=== PATIENT | female | born 1940 | race Caucasian/White ===

== ENCOUNTER 2019-06-04 19:20 | Inpatient (IN) ==
[2019-06-04] MEDS ORDERED: cloNIDine HCl 0.1 MG TAB PO ONE (20:24)
[2019-06-04 20:44] LABS: Basophils # (auto) 0.04 K/uL (0-0.2); Basophils % (auto) 0.7 %; Eosinophils # (auto) 0.07 K/uL (0-0.5); Eosinophils % (auto) 1.2 %; Hematocrit (blood only) 35.6 % (37-47); Immature Granulocytes # (auto) 0.03 K/uL (0.00-0.02); Immature Granulocytes % (auto) 0.5 %; Lymphocytes # (auto) 0.65 K/uL (1.2-3.4); Lymphocytes % (auto) 10.7 %; Mean Corpuscular Hgb Conc 33.7 g/dL (32-36); Mean Platelet Volume 9.3 fL (7.4-10.4); Monocytes # (auto) 0.69 K/uL (0.11-0.59); Monocytes % (auto) 11.3 %; Neutrophils % (auto) 75.6 %; Platelet Count 166 K/uL (130-400); RDW Coefficient of Variation 16.8 % (11.5-14.5); RDW Standard Deviation 59.5 fL (36.4-46.3); Red Blood Count 3.67 M/uL (4.2-5.4); White Blood Count 6.08 K/uL (4.8-10.8)
--- NOTE | 2019-06-04 20:44 | Emergency Department Note ---
ED Visit Note I contributed to the care of this patient under the supervision of . Resident Activity Tracking Resident Involvement: Resident Care Provided Care Provided: Adult ED
[2019-06-04] MEDS ORDERED: OXYCODONE/ACETAMINOPHEN 5mg/325mg TAB PO STA (20:50)
[2019-06-04 21:00] LABS: BUN Creatinine Ratio 17.6 (10-20); Blood Urea Nitrogen 37 mg/dl (7-18); Calcium 8.5 mg/dl (8.5-10.1); Carbon Dioxide 32 mmol/L (21-32); Chloride 96 mmol/L (98-107); Est GFR (African American) 25.4; Est GFR (Non-African American) 21.9; Glucose 86 mg/dl (70-99); Sodium 134 mmol/L (136-145)
--- NOTE | 2019-06-04 21:09 | XRay Report ---
XR chest 1V portable HISTORY: Hypertensive urgency COMPARISON: Chest 02/15/2019. FINDINGS: The lungs are hyperexpanded with apical predominant emphysematous changes. No focal lung co nsolidations to suggest pneumonia. No evidence for pulmonary edema. Calcified lymph nodes are again n oted. The heart is normal in size. Mildly tortuous thoracic aorta. Right apical pleural thickening/sc arring remains unchanged. No pleural effusions. No pneumothorax. IMPRESSION: No significant change compared to the prior study. No acute process. Emphysema is again noted. Electronically signed by: Ozzie Lo M.D. 06/04/2019 9:08 PM
[2019-06-04 21:17] LABS: Troponin I 0.076 ng/ml (0-0.045)
--- NOTE | 2019-06-04 21:19 | CT Scan Report ---
HEAD CT NONCONTRAST CT DOSE: 743.26 mGy.cm HISTORY: Systolic BP>200, h/a, new cognitive deficits TECHNIQUE: Multiaxial CT images of the head were performed without the use of intravenous contrast. A utomated exposure control was utilized for this study. A dose lowering technique was utilized adheri ng to the principles of ALARA. Comparison: Head CT 03/27/2019. Findings: The paranasal sinuses and mastoid air cells are clear. The calvarium and skull base are int act. There is no mass, hematoma, midline shift, acute infarct. White matter hypodensity is nonspecifi c but suggestive of microvascular ischemic change. The ventricles and sulci demonstrate mild age-rela edmundo involutional changes. Impression: No acute intracranial abnormality. Atrophy and microvascular ischemic changes. Electronically signed by: Ozzie Lo M.D. 06/04/2019 9:18 PM
[2019-06-04 21:52] LABS: Appearance Urine Clear (Clear); Bacteria Urine Automated Negative (Negative); Bilirubin Urine Negative (Negative); Blood Urine Trace (Negative); Color Urine Yellow; Glucose Urine UA Trace (Negative); Ketones Urine Negative (Negative); Leukocyte Esterase Urine Negative (Negative); Nitrite Urine Negative (Negative); RBC Urine Automated 0-4 /hpf (0-4); Specific Gravity Urine 1.014 (1.000-1.030); Urobilinogen Urine Negative (Negative); WBC Urine Automated 0 /hpf (0-5); pH Urine 7.5 (4.5-7.5)
[2019-06-04 21:55] LABS: Protein Urine 3+ (Negative)
--- NOTE | 2019-06-04 21:57 | Emergency Department Note ---
Entered by Mckenna Carrington acting as a scribe for Bronson Osorio DO History of Present Illness General Chief complaint: Hypertension Stated complaint: HIGH BLOOD PRESSURE Time Seen by Provider: 06/04/19 19:26 Source: patient History of Present Illness Provider complaint: Hypertensive urgency Onset (ago): day(s) Location: head (cognitive deficit and hallucinations ) Pain Consistency: + constant Maximum Pain Intensity: 5 Quality: + constant Associated symptoms: + headaches (intermittent ) and + other (Positive: hypertensive urgency, decreased cognitive ability, auditory hallucinations, visual hallucinations, forgetful, light headed, bloody bowel movement, abdominal pain. Negative: LOC, visual weakness, visual changes, vertigo.); no syncope The patient is an 78 year old female who presents to the ED with complaints of constant hypertensive urgency that started several days ago. The patient reports she has had decreased cognitive ability in the last 2 weeks with auditory and visual hallucinations. The daughter notes the patient has been more forgetful. The patient reports she heard a full orchestra performing but when she tried to pay attention, it was not there. She notes she has been in the hospital for hypertension urgency in the past 2 weeks. The patient reports her blood pressure has been fluctuating since Friday. She notes she feels off and has 5/10 inte rmittent headache. The patient states she is lightheaded. She reports she was seen on Friday morning because she had a large bloody bowel movement with both dark and light blood. The patient reports she was recommended to come to the ED because of the hypertension and the bloody bowel movement. She notes she had normal bowel movements today but still has abdominal pain. The patient states she had colonoscopy and endoscopy done in 2015 and both came back normal. She reports she has a CT scan with no contrast scheduled next week of both the head and abdomen. The patient states she has history of COPD, stenosis, dyslipidemia, tobacco abuse, hemorrhoids. The patient denies LOC, visual weakne ss, visual changes, vertigo, or syncope. Home Medications Home Medications Medication Instructions Recorded Confirmed Type Bevespi Aerosphere 2 puff INHALATION BID 03/10/19 06/04/19 History Spirulina 1 ea MISCELLANEOUS DAILY 03/10/19 06/04/19 History levothyroxine 88 mcg PO QAM 03/10/19 06/04/19 History ranitidine HCl [Zantac] 150 mg PO DAILY PRN 03/10/19 06/04/19 History alendronate 70 mg PO WK 03/27/19 06/04/19 History escitalopram oxalate [Lexapro] 5 mg PO QAM 03/27/19 06/04/19 History ipratropium-albuterol 3 ml INHALATION QID 03/27/19 06/04/19 History inhalational spacing device #1 ea 05/24/19 05/24/19 History cetirizine [Zyrtec] 10 mg PO DAILY PRN 06/04/19 06/04/19 History colestipol 5 g PO DAILY 06/04/19 06/04/19 History ergocalciferol (vitamin D2) 50,000 unit PO WK 06/04/19 06/04/19 History [Vitamin D2] hydralazine 10 mg PO QID 06/04/19 06/04/19 History nicotine (polacrilex) [Nicorette] 2 mg BUCCAL Q3H PRN 06/04/19 06/04/19 History potassium chloride 20 meq PO BID 06/04/19 06/04/19 History tramadol 50 mg PO TID PRN 06/04/19 06/04/19 History trazodone 50 mg PO HS 06/04/19 06/04/19 History Allergies Allergy/AdvReac Type Severity Reaction Status Date / Time morphine Allergy Severe Hypotension Verified 05/24/19 14:30 [id number]-[id number]-[id number] Reductase Allergy Severe Unknown Verified 05/24/19 14:30 Inhibitor Past Med/Surg History Medical History COPD (chronic obstructive pulmonary disease) (Chronic) Breast cancer Hypothyroidism Renal artery stenosis History of hysterectomy Pulmonary embolism Surgical History H/O mastectomy H/O abdominal aortic aneurysm repair History of right hip replacement Family History Father Myocardial infarction Social History Preferred Language: Bruneian Communication Ability: Effective Toilet And 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 and A total of 10 systems reviewed and were otherwise negative Physical Exam Vital Signs Vital Signs - 24 hr 06/04/19 19:21 06/04/19 20:21 06/04/19 20:28 Temperature 37.1 C Temperature Source Oral Sepsis Recent Fever Within 48 Hours No Sepsis Action Taken by Nursing No Action Required Pulse Rate 93 H 93 H 89 Pulse Rate [Apical] Pulse Rate from SpO2 Sensor 93 H Respiratory Rate 18 24 20 Respiratory Effort / Characteristics Non-Labored Spontaneous Respiratory Depth Normal Respiratory Pattern Regular Blood Pressure 147/92 H 199/132 H Blood Pressure [Left Arm] Blood Pressure Mean 110 154 Blood Pressure Mean [Left Arm] Blood Pressure Position Sitting Blood Pressure Position [Left Arm] Pulse Oximetry 98 100 100 Oxygen Delivery Method Nasal Cannula Nasal Cannula Nasal Cannula Oxygen Flow Rate 3 3 3 06/04/19 20:29 06/04/19 20:35 06/04/19 20:36 Temperature Temperature Source Sepsis Recent Fever Within 48 Hours Sepsis Action Taken by Nursing Pulse Rate 91 H 91 H Pulse Rate [Apical] 93 H Pulse Rate from SpO2 Sensor 92 H 91 H Respiratory Rate 26 H 22 21 Respiratory Effort / Characteristics Non-Labored Spontaneous Respiratory Depth Normal Respiratory Pattern Regular Blood Pressure 217/116 H Blood Pressure [Left Arm] 199/132 H Blood Pressure Mean 149 Blood Pressure Mean [Left Arm] 154 Blood Pressure Position Blood Pressure Position [Left Arm] Lying Pulse Oximetry 100 100 100 Oxygen Delivery Method Nasal Cannula Oxygen Flow Rate 3 3 3 06/04/19 21:00 06/04/19 21:30 06/04/19 21:35 Temperature Temperature Source Sepsis Recent Fever Within 48 Hours Sepsis Action Taken by Nursing Pulse Rate 95 H 90 86 Pulse Rate [Apical] Pulse Rate from SpO2 Sensor 90 86 Respiratory Rate 15 23 Respiratory Effort / Characteristics Respiratory Depth Respiratory Pattern Blood Pressure 198/126 H Blood Pressure [Left Arm] Blood Pressure Mean 150 Blood Pressure Mean [Left Arm] Blood Pressure Position Blood Pressure Position [Left Arm] Pulse Oximetry 98 99 Oxygen Delivery Method Nasal Cannula Nasal Cannula Oxygen Flow Rate 3 3 3 CONSTITUTIONAL/VITAL SIGNS: Reviewed / noted above. GENERAL: Non-toxic in appearance. INTEGUMENTARY: Warm, dry, and Circle. HEAD: Normocephalic. EYES: without scleral icterus or trauma. ENT/OROPHARYNX: clear and moist. LYMPHADENOPATHY/NECK: Is supple without lymphadenopathy or meningismus. RESPIRATORY: Lungs clear and equal. CARDIOVASCULAR: Regular rate and rhythm. GI/ABDOMEN: Soft and nontender. No organomegaly or pulsatile mass. No rebound or guarding. Normal bowel sounds. EXTREMITIES: Warm and well perfused. BACK: No CVA tenderness. NEUROLOGICAL: Intact without focal deficits. PSYCHIATRIC: normal affect. MUSCULOSKELETAL: Normally developed with good muscle tone. Course 1930: The resident evaluated the patient. 2034: The patient was evaluated in room C5. A complete history and physical exam was performed. 2119: The resident discussed the patient's case with Dr. Bourne, [facility] [place] Hospitalist. He will evaluate the patient for further management. Administered Medications Discontinued Medications Clonidine HCl (Catapres) 0.1 mg PO NOW ONE Stop: 06/04/19 20:25 Last Admin: 06/04/19 20:34 Dose: 0.1 mg Documented by: [id number] Oxycodone/Acetaminophen (Percocet 5mg/325mg) 1 tab PO NOW STA Stop: 06/04/19 20:51 Last Admin: 06/04/19 21:01 Dose: 1 tab Documented by: [id number] Medical Decision Making Differential Diagnosis Differential Diagnosis: Differential includes acute coronary syndrome, myocardial infarction, CVA, TIA, anemia, infection, pneumonia, UTI, pyelonephritis, poor nutrition, dehydration, electrolyte disturbance,hypoglycemia. Medical Records Attestation: I reviewed the patient's medical records. Home Medications Current Medication List: was personally reviewed by me Laboratory Data Attestation: I reviewed the patient's lab results. Result diagrams: 06/04/19 20:21 06/04/19 20:21 Lab Results 06/04/19 06/04/19 06/04/19 Range/Units 20:21 20:21 21:06 WBC 6.08 (4.8-10.8) K/uL RBC 3.67 L (4.2-5.4) M/uL Hgb 12.0 (12.0-16.0) g/dL Hct 35.6 L (37-47) % MCV 97.0 (80-100) fL MCH 32.7 (25-34) pg MCHC 33.7 (32-36) g/dL RDW Std Deviation 59.5 H (36.4-46.3) fL RDW Coeff of Umberto 16.8 H (11.5-14.5) % Plt Count 166 (130-400) K/uL MPV 9.3 (7.4-10.4) fL Immature Gran % (Auto) 0.5 % Neut % (Auto) 75.6 % Lymph % (Auto) 10.7 % Mcminn % (Auto) 11.3 % Eos % (Auto) 1.2 % Baso % (Auto) 0.7 % Immature Gran # (Auto) 0.03 H (0.00-0.02) K/uL Neut # (Auto) 4.60 (1.4-6.5) K/uL Lymph # (Auto) 0.65 L (1.2-3.4) K/uL Mcminn # (Auto) 0.69 H (0.11-0.59) K/uL Eos # (Auto) 0.07 (0-0.5) K/uL Baso # (Auto) 0.04 (0-0.2) K/uL Sodium 134 L (136-145) mmol/L Potassium 4.0 (3.5-5.1) mmol/L Chloride 96 L (98-107) mmol/L Carbon Dioxide 32 (21-32) mmol/L Anion Gap 5.0 (3-11) BUN 37 H (7-18) mg/dl Creatinine 2.08 H (0.6-1.2) mg/dl Est Cr Clr Drug Dosing Not Reportable Est GFR ( Amer) 25.4 Est GFR (Non-Af Amer) 21.9 BUN/Creatinine Ratio 17.6 (10-20) Glucose 86 (70-99) mg/dl Calcium 8.5 (8.5-10.1) mg/dl Ammonia 11.6 (11-32) umol/L Troponin I 0.076 H* (0-0.045) ng/ml Imaging Data Radiologist's Impression: Radiology results as stated below per my review and the radiologist's interpretation: XR chest 1V portable HISTORY: Hypertensive urgency COMPARISON: Chest 02/15/2019. FINDINGS: The lungs are hyperexpanded with apical predominant emphysematous changes. No focal lung consolidations to suggest pneumonia. No evidence for pulmonary edema. Calcified lymph nodes are again noted. The heart is normal in size. Mildly tortuous thoracic aorta. Right apical pleural thickening/scarring remains unchanged. No pleural effusions. No pneumothorax. IMPRESSION: No significant change compared to the prior study. No acute process. Emphysema is again noted. Electronically signed by: Ozzie Lo M.D. 06/04/2019 9:[address] CT DOSE: 743.26 mGy.cm HISTORY: Systolic BP>200, h/a, new cognitive deficits TECHNIQUE: Multiaxial CT images of the head were performed without the use of intravenous contrast. Automated exposure control was utilized for this study. A dose lowering technique was utilized adhering to the principles of ALARA. Comparison: Head CT 03/27/2019. Findings: The paranasal sinuses and mastoid air cells are clear. The calvarium and skull base are intact. There is no mass, hematoma, midline shift, acute infarct. White matter hypodensity is nonspecific but suggestive of microvascular ischemic change. The ventricles and sulci demonstrate mild age-related involutional changes. Impression: No acute intracranial abnormality. Atrophy and microvascular ischemic changes. Electronically signed by: Ozzie Lo M.D. 06/04/2019 9:18 PM ECG Data Attestation: I personally reviewed and interpreted this ECG as follows: Indication: other (hypertension ) Rate (beats per minute): 94 Rhythm: normal sinus Findings: no ST elevation and no ectopy Blood Pressure Blood Pressure Findings: Elevated blood pressure Blood Pressure Disposition: further management by hospitalist MONIQUE Vieyra The patient presents to the emergency department with her daughter. The patient has been having some issues recently over the past couple of weeks with hypertension. Also last week she had some visual and auditory hallucinations. She also reports some forgetfulness recently. She left the stove on after making some hard boiled eggs. The patient also complains of a headache. She was seen by her PCP several times for hypertension. The patient has a CT scan of the abdomen and pelvis without contrast and a CT scan of the brain without contrast ordered for next week. On Friday, the patient had a bloody bowel movement. She was seen by her PCP for this as well. Today she had a bowel movement without any blood. The patient otherwise denies any chest pains or shortness of breath. Denies any abdominal pains currently. She denies any urinary symptoms. Other details are noted above. Her physical exam was un remarkable today. She is speaking clearly and remembers details about the recent events. The patients CBC is normal. Chemistry panel was unremarkable. Kidney function tests are elevated. Troponin was elevated. EKG showed a sinus rhythm without ischemic changes. The patient was given clonidine p.o. here. She was also given a Percocet for headache. Because of her elevated troponin and significant hypertension, she will be seen by the hospitalist for further inpatient evaluation and care. Impression & Plan Hypertensive urgency, Stage 3 chronic kidney disease, Elevated troponin The scribe's documentation has been prepared under my direction and personally reviewed by me in its entirety. I confirm that the note above accurately reflects all work, treatment, procedures, and medical decision making performed by me.
[2019-06-04 21:59] LABS: Partial Thromboplastin Ratio 0.9; Partial Thromboplastin Time 23.7 Seconds (21.0-31.0); Prothrombin Time 10.1 Seconds (9.0-12.0)
[2019-06-04] MEDS ORDERED: HydrALAZINE HCL 20 MG/ML VIAL IV ONE ×3 (22:07→23:37)
--- NOTE | 2019-06-04 22:29 | History & Physical Report ---
Date of Service June 04, 2019 Assessment & Plan (1) Hypertensive urgency: 78 y/o F Hx CKD IV, renal artery stenosis, hypothyroid, diastolic CHF, COPD, HTN, HLD. The pt presents with an elevated blood pressure which had failed to respond to outpt treatment. She describes a headache as her only symptom. She had received PO Clonidine and takes TID Hydralazine. Despite this, her SBP is ~ 200 at the time of admission. Labs are notable for a marginally elevated troponin and otherwise approximate her baseline. The pt reports that 3 days ago she had a profuse rectal bleed owing to some ruptured scar tissue. This resolved without specific treatment. She also reports considerable weight loss over the past few months and was due for a CT of the chest/abdomen pelvis to assess for occult CA. The pt's daughter who is present at bedside, opines that she has exhibited a degree of cognitive decline over the same time period. 1) HTN urgency - will start with NTG and additional Hydralazine. If this is not effective, will proceed to a Nicardipine drip. She will be monitored on te lemetry. 2) Elevated trop - no evidence of ACS - EKG and presentation do not support ischemia - trop elevation is likely result of HTN and renal function. Will trend additional. No additional workup if stable. 3) Regarding her weight loss and engorged veins, she had been pending a workup for occult CA. We will send her for a CT chest/abdomen/pelvis as a chest mass could affect management. 4) CKD IV - creat has improved from baseline 5) CHF - euvolemic on admission 6) COPD - co evidence of exacerbation - cont inhalers and 02 protocol 7) Hypothyroidism - cont Synthroid We are holding off on heparin due to recent profuse rectal bleed - SCDs Full code - total time for this admit including review of labs, meds, imaging, records - discussion with pt, daughter and ER attending - 40 min Present on Admission?: Yes History of Present Illness Chief Complaint: HTN urgency - refferred by PCP Primary Care Provider: Bethany Brambila MD 78 y/o F Hx CKD IV, renal artery stenosis, hypothyroid, diastolic CHF, COPD, HTN, HLD. The pt presents with an elevated blood pressure which had failed to respond to outpt treatment. She describes a headache as her only symptom. She had received PO Clonidine and takes TID Hydralazine. Despite this, her SBP is ~ 200 at the time of admission. Labs are notable for a marginally elevated troponin and otherwise approximate her baseline. The pt reports that 3 days ago she had a profuse rectal bleed owing to some ruptured scar tissue. This resolved without specific treatment. She also reports considerable weight loss over the past few months and was due for a CT of the chest/abdomen pelvis to assess for occult CA. The pt's daughter who is present at bedside, opines that she has exhibited a degree of cognitive decline over the same time period. PMH: 1) CKD IV 2) Renal artery stenosis 3) HTN 4) HLD - cholesterol profile is unusual - total 385, LDL 236, HDL of 126 5) COPD - home 02 6) History of PE 7) GERD 8) AAA - repaired 9) Breast CA 10) Diastolic CHF and pulmonary HTN on echo 2018 11) LE edema - states this occurred with Amlodipine 12) Depression Surgical: 1) AAA repair 2) Mastectomy 3) LARISA Social: 58 PYH - quit smoking 11/2018. Does not drink alcohol. Family: Father due to an [place] Allergies Allergy/AdvReac Type Severity Reaction Status Date / Time morphine Allergy Severe Hypotension Verified 06/04/19 22:01 [id number]-[id number] Reductase Allergy Severe Unknown Verified 06/04/19 22:01 Inhibitor Home Medications Home Medications Medication Instructions Recorded Confirmed Type Bevespi Aerosphere 2 puff INHALATION BID 03/10/19 06/04/19 History Spirulina 1 ea MISCELLANEOUS DAILY 03/10/19 06/04/19 History levothyroxine 88 mcg PO QAM 03/10/19 06/04/19 History ranitidine HCl [Zantac] 150 mg PO DAILY PRN 03/10/19 06/04/19 History alendronate 70 mg PO WK 03/27/19 06/04/19 History escitalopram oxalate [Lexapro] 5 mg PO QAM 03/27/19 06/04/19 History ipratropium-albuterol 3 ml INHALATION QID 03/27/19 06/04/19 History inhalational spacing device #1 ea 05/24/19 05/24/19 History cetirizine [Zyrtec] 10 mg PO DAILY PRN 06/04/19 06/04/19 History colestipol 5 g PO DAILY 06/04/19 06/04/19 History ergocalciferol (vitamin D2) 50,000 unit PO WK 06/04/19 06/04/19 History [Vitamin D2] hydralazine 10 mg PO QID 06/04/19 06/04/19 History nicotine (polacrilex) [Nicorette] 2 mg BUCCAL Q3H PRN 06/04/19 06/04/19 History potassium chloride 20 meq PO BID 06/04/19 06/04/19 History tramadol 50 mg PO TID PRN 06/04/19 06/04/19 History trazodone 50 mg PO HS 06/04/19 06/04/19 History Past Med/Surg History Medical History COPD (chronic obstructive pulmonary disease) (Chronic) Breast cancer Hypothyroidism Renal artery stenosis History of hysterectomy Pulmonary embolism Surgical History H/O mastectomy H/O abdominal aortic aneurysm repair History of right hip replacement Family History Father Myocardial infarction Social History Preferred Language: Iraqi Communication Ability: Effective Systems Spec Required: No Beliefs That Will Affect Care: None Current Living Situation: Family Feels Safe at Home: Yes Smoking Status: Former smoker Tobacco Type: cigarettes ; Cigarettes Per Day: 20 ; Second Hand Exposure: No ; Hx Alcohol Use: No Hx Substance Use: Yes substance use type: sedatives Review of Systems Review of Systems: Gen: Gradual weight loss and possible cognitive decline over past few months ENT: Denies congestion, throat pain, hearing loss Eyes: Denies acute visual changes CV: Denies CP, palpitations Pulmonary: Denies SOB, cough, wheezing GI: Denies N/V, diarrhea, constipation Neuro: Mild headache - Denies acute or unilateral weakness, acute gait impairment Musculoskeletal: Denies acute joint pain, inflammation Endocrine: Denies polydipsia, polyuria Skin: Denies acute rashes or ulcers Physical Exam Physical Exam: General: This is a pleasant and loquacious, thin, elderly F - AAO x 3, no distress ENT: No erythema or exudates, no thrush Eyes: TYRESE, EOMI Head and neck: Normocephalic, atraumatic. There is significant engorgement of he veins on her neck, chest and arms. Chest/heart: Nontender, S1,2, RRR, no murmurs, no gallops Lungs: CTAB, no wheezing or crackles Abdomen: Nontender, nondistended, BS+ Neuro: AAO x 3, speech is clear, no unilateral weakness or loss of sensation, coordination intact Musculoskeletal: No joint inflammation, muscle tenderness, FROM Skin: No acute rashes or ulcers Extremities: No clubbing, cyanosis, + edema - chronic Results & Data Vital Signs (Past 12 Hours) Vital Signs Temp Pulse Pulse Resp BP BP Pulse Ox 06/04/19 21:35 86 23 198/126 H 99 06/04/19 21:30 90 98 06/04/19 21:00 95 H 15 06/04/19 20:36 91 H 21 217/116 H 100 06/04/19 20:35 91 H 22 100 06/04/19 20:29 93 H 26 H 199/132 H 100 06/04/19 20:28 89 20 100 06/04/19 20:21 93 H 24 199/132 H 100 06/04/19 19:21 98.8 F 93 H 18 147/92 H 98 Diagnostic Findings EKG: NSR PG Care Time/CCT Total # of Minutes Spent Total Time Spent with Patient: Total time spent is greater than 50% in coordination of care (as documented) at patient's floor/unit and/or counseling patient:
[2019-06-04] MEDS: NITROGLYCERIN 2% OINTMENT 30GM TUBE EXT SCH (22:31)
--- NOTE | 2019-06-04 23:26 | CT Scan Report ---
CT chest wo con, CT abd pelvis wo con CT DOSE: 418.63 mGy.cm HISTORY: Weight loss. Vomiting. lung mass suspected TECHNIQUE: Multiaxial CT images of the chest, abdomen, and pelvis were performed without contrast. A dose lowering technique was utilized adhering to the principles of ALARA. COMPARISON: Chest CT 11/12/2018. FINDINGS: No change in the right apical density with mild bronchiectasis and a focal calcification. T his favors fibrotic change/scarring. Moderate emphysema. No new focal lung consolidations to suggest pneumonia. Nodular airspace opacities seen on the prior study have essentially resolved in the interv al. Mild bronchiectasis. The central airways appear patent. No suspicious lytic or blastic osseous le sions. Right axillary surgical clips are noted. The heart is normal in size. Mild thickening within t he mid to distal esophagus. The mid to distal esophagus is filled with fluid but not significantly di stended. Mild calcified plaque within the ectatic thoracic aorta. No definite aneurysm. Calcified med iastinal lymph node, unchanged. No definite mediastinal or hilar lymphadenopathy. No pneumothorax. No pleural effusions. Old mild compression deformities within the lower thoracic spine, unchanged. No pneumoperitoneum. No pneumatosis. Prior internal fixation of an old right femoral neck fracture. O verall, difficult evaluation of the abdomen and pelvis due to the lack of contrast and intra-abdomina l fat. There are a few punctate gallstones identified. No definite gallbladder wall thickening. The u nenhanced liver demonstrate a few calcified granulomas. The unenhanced spleen and right adrenal gland are unremarkable. Diffuse thickening of the left adrenal gland which may be age-related. The pancrea s is not well visualized due to metallic artifact from the aortobiiliac stent graft repair. However, no significant abnormality identified within the pancreas. No retroperitoneal lymphadenopathy. Slight ly atrophic right kidney containing a 4 mm stone. No hydronephrosis. Normal left kidney. Mildly diste nded bladder. The aneurysm sac currently measures 3.1 cm. Trace ascites. Suboptimal evaluation for bennie wel pathology. However, there is no definite bowel wall thickening or obstruction. Colonic diverticul osis. The visualized appendix appears unremarkable. There appears to be mild thickening versus underd istention of the stomach. IMPRESSION: 1. Emphysema and mild bronchiectasis. 2. No change in the right apical density which favors fibrotic change/scarring. 3. No new focal lung consolidations. 4. Difficult evaluation of the abdomen and pelvis due to the lack of contrast and intra-abdominal fat . However, no evidence for bowel obstruction. 5. There appears to mild thickening within the mid to distal esophagus and within the stomach. This c ould represent a nonspecific gastritis. Endoscopy can be performed for further evaluation. 6. Cholelithiasis. 7. Right-sided nephrolithiasis. 8. Additional findings as described above. Electronically signed by: Ozzie Lo M.D. 06/04/2019 11:24 PM
[2019-06-05] MEDS: TRAZODONE HCL 50 MG TAB PO SCH ×2 (00:32→21:22)
[2019-06-05] MEDS ORDERED: HydrALAZINE HCL 20 MG/ML VIAL IV PRN (04:03)
[2019-06-05] MEDS: TRAMADOL HCL 50 MG TABLET PO PRN ×2 (04:32→10:49)
[2019-06-05] MEDS: NITROGLYCERIN 2% OINTMENT 30GM TUBE EXT SCH ×2 (05:49→12:10)
[2019-06-05] MEDS: LEVOTHYROXINE SODIUM 88 MCG TABLET PO SCH (05:50)
[2019-06-05] MEDS: ALBUT/IPRATROP 3MG/0.5MG NEB 3 ML VIAL INH SCH ×4 (07:16→18:59)
[2019-06-05] MEDS: ACETAMINOPHEN 325 MG TAB PO PRN (07:39)
[2019-06-05] MEDS: HydrALAZINE 10 MG TAB PO SCH ×4 (08:07→19:36)
[2019-06-05] MEDS: HEPARIN SOD 5,000 UNIT/0.5 ML VIAL SQ SCH ×2 (08:07→19:36)
[2019-06-05] MEDS: POTASSIUM CHLORIDE 20 MEQ TABCR PO SCH ×2 (08:08→17:13)
[2019-06-05] MEDS ORDERED: ESCITALOPRAM OXALATE 10 MG TAB PO SCH (09:00)
[2019-06-05] MEDS: PANTOprazole 40 MG TAB PO SCH (09:49)
[2019-06-05] MEDS: COLESTIPOL HCL 5 GM POWDER PACK PO SCH (09:49)
--- NOTE | 2019-06-05 16:14 | Magnetic Resonance Report ---
MR brain wo con HISTORY: 78 years-old Female headaches, memory loss acute headache with strokelike symptoms. History of breast cancer COMPARISON: Head CT 06/04/2019 TECHNIQUE: Multiplanar multisequence MRI of the brain was obtained without the use of IV contrast. FINDINGS: Program Or Project Administrator localizer images demonstrate no gross extracranial abnormality. The midline structures includin g the corpus callosum, brainstem, optic chiasm, pituitary and pineal glands appear unremarkable as se en on the sagittal T1 series. No cerebellar tonsillar herniation. Degenerative changes noted about th e imaged cervical spine. No restricted diffusion to suggest acute or subacute infarction. No acute in tracranial hemorrhage, midline shift, abnormal extra-axial collection, hydrocephalus or intracranial mass. Age-related involutional changes with ex vacuo ventriculomegaly. Extensive T2/FLAIR hyperintens ities about the white matter suggest chronic microvascular ischemic disease. Major flow voids at the level of the skull base appear unremarkable. Mastoid air cells are generally clear. Mild mucosal thickening of the ethmoid air cells. Skull and soft tissues are within normal marie its. Prior bilateral cataract repair. IMPRESSION: 1. No acute intracranial abnormality. 2. Age-related involutional changes with extensive T2/FLAIR hyperintensities about the white matter s uggestive of chronic microvascular ischemic disease. The above report was generated using voice recognition software. It may contain grammatical, syntax o r spelling errors. Electronically signed by: Catalino Sarabia M.D. 06/05/2019 4:13 PM
--- NOTE | 2019-06-05 20:12 | Hospitalist Progress Note ---
Date of Service June 05, 2019 Assessment & Plan (1) Headache: Present for months. Sed rate and crp today normal making temporal arteritis unlikely. MRI brain obtained - no old/new stroke, no tumor/mass; considerable chronic microvascular disease seen likely due to long-standing HTN and age. Etiology of headaches uncertain. BP could be contributing but daughter states her BPs don't necessarily correlate with headaches at home. Denies neck pain but DJD of c-spine possibility. Will recommend eye exam to ensure no glaucoma, etc. Treat symptoms. Follow. Present on Admission?: Yes (2) Memory loss: MRI brain with considerable microvascular disease. Possibilities - "pseudo"dementia from depression vs early vascular dementia vs mild cognitive impairment vs metabolic disturbance (b12 def, b1 def, etc). Increase lexapro to 10mg daily. Check B12 and B1 levels. Consider outpatient neuropsych testing. Present on Admission?: Yes (3) Hypertensive urgency: Improved with simply adding nitropaste and a dose of clonidine. Stop the nitropaste. Check orthostatics. Adjust hydralazine if needed for improved control. Present on Admission?: Yes (4) Abnormal CT of the abdomen: Biggest abnormality seen is that of esophageal and gastric inflammation. Start PPI. Has scheduled f/u with Dr Bruno as outpatient. Suspect she will need EGD to r/o malignancy. Present on Admission?: Yes (5) Weight loss: Highly concerning for occult malignancy. No obvious malignancy on pang-CT yesterday. MRI brain w/o tumor. EGD/colonoscopy will be needed after discharge. If nothing is found on those procedures --- could some weight loss be from depression? some from chronic hypoxic resp failure/advanced lung disease? other? Present on Admission?: Yes (6) Elevated troponin: likely due to myocardial demand ischemia in setting of hypertensive urgency. doubt ACS. recheck troponin in am. (7) COPD (chronic obstructive pulmonary disease): advanced, severe; quit smoking 11/2018. on chronic NC O2 at home. cont nebs, etc. Present on Admission?: Yes (8) Hypothyroidism: TSH wnl. cont synthroid. Present on Admission?: Yes (9) Renal artery stenosis: history of such. if BPs continue to remain challenging to control consider renal artery dopplers. Present on Admission?: No (10) History of pulmonary embolism: noted (11) Hypertension: see discussion in "hypertensive urgency" (12) Chronic respiratory failure with hypoxia: stable on home O2 amount (3 l NC) 2nd to advanced COPD Present on Admission?: Yes (13) Severe protein-calorie malnutrition: recommend MVI and boost at discharge see above in "abnormal CT of abdomen" and "weight loss" above Present on Admission?: Yes (14) Depression: increase lexapro to 10mg daily consider outpatient counseling Present on Admission?: Yes (15) DVT prophylaxis: heparin 5000 BID daughter extensively updated at bedside Subjective patient's main complaint was that of headaches dating back to at least February/March. headaches are frontal and over both eyes. occasionally over confucianist regions. headaches occur numerous times each week. worse in the last 2 weeks. she reports weight loss of 20-30 pounds over last year or so. scheduled to see Dr Bruno from [facility] later in June for consideration of endoscopies. she has lost weight despite continuing to eat. denies reflux symptoms. daughter at bedside - continues to have fluctuations in Bps. they are quite labile at home - 160s/170s and down to normal with lots of readings in between. the headaches don't necessarily correlate with BP spikes. daughter confirms depression and anxiety in her mother. patient frequently interrupts the conversation to ask questions and seems fearful of her medical conditions. lastly, daughter mentions her mother has had ongoing cognitive/memory issues. present for months. Review of Systems Constitutional: + weight loss; no fever and no chills Respiratory: no cough and no sputum production Cardiovascular: no chest pain Gastrointestinal: no abdominal pain, no nausea and no vomiting Physical Exam Constitutional: + thin, + cachectic and + frail appearing; + not well developed, + not well nourished and no acute distress ENMT: external ear and nose normal, oropharynx normal no tenderness over either temporal artery Respiratory: no respiratory distress Auscultation: + wheezes (occasional) Cardiovascular: Rate/Rhythm: regular rate and regular rhythm Heart Sounds: normal S1 and normal S2; no murmur Vessels: posterior tibial pulses present and dorsalis pedis pulses present; no JVD Extremities: no edema Gastrointestinal (Abdomen): normal bowel sounds, soft, nontender, no hepatosplenomegaly Psychiatric: Orientation: alert, oriented to person and oriented to place Affect: + anxious affect Lymphatic: no cervical lymphadenopathy Results & Data Vital Signs (Past 12 Hours) Vital Signs Temp Pulse Resp BP Pulse Ox 06/05/19 19:01 81 18 98 06/05/19 18:56 36.7 C 86 18 158/86 H 95 06/05/19 15:26 37.2 C 81 18 166/78 H 98 06/05/19 14:49 36.9 C 86 18 184/98 H 99 06/05/19 11:36 36.9 C 72 16 142/63 H 99 Laboratory Results Laboratory Results - last 24 hr 06/04/19 06/04/19 06/04/19 20:21 20:21 20:21 WBC 6.08 RBC 3.67 L Hgb 12.0 Hct 35.6 L MCV 97.0 MCH 32.7 MCHC 33.7 RDW Std Deviation 59.5 H RDW Coeff of Umberto 16.8 H Plt Count 166 MPV 9.3 Immature Gran % (Auto) 0.5 Neut % (Auto) 75.6 Lymph % (Auto) 10.7 [place] % (Auto) 11.3 Eos % (Auto) 1.2 Baso % (Auto) 0.7 Immature Gran # (Auto) 0.03 H Neut # (Auto) 4.60 Lymph # (Auto) 0.65 L [place] # (Auto) 0.69 H Eos # (Auto) 0.07 Baso # (Auto) 0.04 ESR PT 10.1 INR 1.0 APTT 23.7 PTT Ratio 0.9 Sodium 134 L Potassium 4.0 Chloride 96 L Carbon Dioxide 32 Anion Gap 5.0 BUN 37 H Creatinine 2.08 H Est Cr Clr Drug Dosing Not Reportable Est GFR ( Amer) 25.4 Est GFR (Non-Af Amer) 21.9 BUN/Creatinine Ratio 17.6 Glucose 86 Calcium 8.5 Ammonia Troponin I 0.076 H* C-Reactive Protein Urine Color Urine Appearance Urine pH Ur Specific Wood Urine Protein Urine Glucose (UA) Urine Ketones Urine Blood Urine Nitrite Urine Bilirubin Urine Urobilinogen Ur Leukocyte Esterase Urine WBC (Auto) Urine RBC (Auto) U Hyaline Cast (Auto) U Epithel Cells (Auto) Urine Bacteria (Auto) 06/04/19 06/04/19 06/05/19 21:03 21:06 13:49 WBC RBC Hgb Hct MCV MCH MCHC RDW Std Deviation RDW Coeff of Umberto Plt Count MPV Immature Gran % (Auto) Neut % (Auto) Lymph % (Auto) [place] % (Auto) Eos % (Auto) Baso % (Auto) Immature Gran # (Auto) Neut # (Auto) Lymph # (Auto) [place] # (Auto) Eos # (Auto) Baso # (Auto) ESR 4 PT INR APTT PTT Ratio Sodium Potassium Chloride Carbon Dioxide Anion Gap BUN Creatinine Est Cr Clr Drug Dosing Est GFR ( Amer) Est GFR (Non-Af Amer) BUN/Creatinine Ratio Glucose Calcium Ammonia 11.6 Troponin I C-Reactive Protein Urine Color Yellow Urine Appearance Clear Urine pH 7.5 Ur Specific Wood 1.014 Urine Protein 3+ H Urine Glucose (UA) Trace H Urine Ketones Negative Urine Blood Trace H Urine Nitrite Negative Urine Bilirubin Negative Urine Urobilinogen Negative Ur Leukocyte Esterase Negative Urine WBC (Auto) 0 Urine RBC (Auto) 0-4 U Hyaline Cast (Auto) 1-5 U Epithel Cells (Auto) 10-20 H Urine Bacteria (Auto) Negative 06/05/19 13:49 WBC RBC Hgb Hct MCV MCH MCHC RDW Std Deviation RDW Coeff of Umberto Plt Count MPV Immature Gran % (Auto) Neut % (Auto) Lymph % (Auto) [place] % (Auto) Eos % (Auto) Baso % (Auto) Immature Gran # (Auto) Neut # (Auto) Lymph # (Auto) [place] # (Auto) Eos # (Auto) Baso # (Auto) ESR PT INR APTT PTT Ratio Sodium Potassium Chloride Carbon Dioxide Anion Gap BUN Creatinine Est Cr Clr Drug Dosing Est GFR ( Amer) Est GFR (Non-Af Amer) BUN/Creatinine Ratio Glucose Calcium Ammonia Troponin I C-Reactive Protein < 0.29 Urine Color Urine Appearance Urine pH Ur Specific Wood Urine Protein Urine Glucose (UA) Urine Ketones Urine Blood Urine Nitrite Urine Bilirubin Urine Urobilinogen Ur Leukocyte Esterase Urine WBC (Auto) Urine RBC (Auto) U Hyaline Cast (Auto) U Epithel Cells (Auto) Urine Bacteria (Auto) PG Care Time/CCT Total # of Minutes Spent Total Time Spent with Patient: Total time spent is greater than 50% in coordination of care (as documented) at patient's floor/unit and/or counseling patient: (1) Headache Headache type: unspecified Headache chronicity pattern: chronic headache Intractability: intractable Qualified Code(s): R51 - Headache (2) COPD (chronic obstructive pulmonary disease) COPD type: unspecified COPD Qualified Code(s): J44.9 - Chronic obstructive pulmonary disease, unspecified (3) Hypothyroidism Hypothyroidism type: acquired Qualified Code(s): E03.9 - Hypothyroidism, unspecified (4) Hypertension Hypertension type: essential hypertension Qualified Code(s): I10 - Essential (primary) hypertension (5) Depression Depression Type: other depression Qualified Code(s): F32.89 - Other specified depressive episodes
[2019-06-06] MEDS: LEVOTHYROXINE SODIUM 88 MCG TABLET PO SCH (06:06)
[2019-06-06] MEDS: TRAMADOL HCL 50 MG TABLET PO PRN (06:26)
[2019-06-06] MEDS: ALBUT/IPRATROP 3MG/0.5MG NEB 3 ML VIAL INH SCH ×4 (07:03→19:34)
[2019-06-06 07:09] LABS: BUN Creatinine Ratio 15.7 (10-20); Calcium 8.2 mg/dl (8.5-10.1); Creatinine Clr Calc Pharmacy 14.5 ml/min; Est GFR (African American) 28.5; Est GFR (Non-African American) 24.6; Potassium 3.8 mmol/L (3.5-5.1)
[2019-06-06 07:16] LABS: Troponin I 0.117 ng/ml (0-0.045)
[2019-06-06] MEDS: ESCITALOPRAM OXALATE 10 MG TAB PO SCH (08:56)
[2019-06-06] MEDS: HydrALAZINE 10 MG TAB PO SCH ×3 (08:57→21:36)
[2019-06-06] MEDS: POTASSIUM CHLORIDE 20 MEQ TABCR PO SCH ×2 (08:58→16:47)
[2019-06-06] MEDS: PANTOprazole 40 MG TAB PO SCH (08:58)
[2019-06-06] MEDS: HEPARIN SOD 5,000 UNIT/0.5 ML VIAL SQ SCH ×2 (09:03→21:37)
[2019-06-06] MEDS: COLESTIPOL HCL 5 GM POWDER PACK PO SCH (10:45)
[2019-06-06] MEDS ORDERED: BISACODYL 10 MG SUPP PR STA (12:00)
[2019-06-06] MEDS: ACETAMINOPHEN 325 MG TAB PO PRN (15:03)
[2019-06-06] MEDS: METOPROLOL TARTRATE 25 MG TAB PO SCH ×2 (19:41→21:36)
--- NOTE | 2019-06-06 19:58 | Hospitalist Progress Note ---
Date of Service June 06, 2019 Assessment & Plan (1) Headache: Present for months. Sed rate and crp are normal making temporal arteritis unlikely. MRI brain without old/new stroke, no tumor/mass; considerable chronic microvascular disease seen likely due to long-standing HTN and vascular disease. Etiology of headaches uncertain. BP could be contributing but daughter states her BPs don't necessarily correlate with headaches at home. Denies neck pain making DJD of c-spine unlikely. Recommended eye exam post-d/c to ensure no glaucoma, etc. Improve her BP control. Treat symptoms. (2) Memory loss: MRI brain with considerable microvascular disease. Possibilities - "pseudo"dementia from depression vs early vascular dementia vs mild cognitive impairment vs metabolic disturbance (b1 def, etc). Increased her lexapro to 10mg daily in the event some symptoms are "pseudo"dementia from depression. B1 level pending. B12 wnl. Previous/recent TSH wnl. Consider outpatient neuropsych testing with neurology. (3) Hypertensive urgency: Only end-organ symptom is headache but she has had the headaches for several months. Thus, I am uncertain if poorly controlled HTN is cause of headache. Either way she needs improved BP control. Hydralazine today increased to 30mg TID. Despite such she had NO improvement in BPs. Later today I added metoprolol 12.5mg BID. Orthostatics negative. Outpatient office records reviewed - just saw Dr Madden in the last 2 weeks. 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 Left renal artery is patent. Dr Murphy's office notes suggest that her [id number] and labile BP may be due to renovascular disease. Anxiety probably playing a role as well. Dr Murphy's notes also mentioned she had decent control on amlodipine but she had severe edema and thus it was discontinued. Cont to remain hospitalized since BPs are still very high. (4) Abnormal CT of the abdomen: Biggest abnormality seen is that of esophageal and gastric inflammation. Started PPI. Has scheduled f/u with Dr Bruno as outpatient in the next week. Suspect she will need EGD to r/o malignancy. (5) Weight loss: Highly concerning for occult malignancy. No obvious malignancy on pang-CT at admission, however. MRI brain w/o tumor. EGD/colonoscopy will be needed after discharge. If nothing is found on those procedures --- could some weight loss be from depression? some from chronic hypoxic resp failure/advanced lung disease? other? (6) Elevated troponin: likely due to myocardial demand ischemia in setting of hypertensive urgency. doubt ACS. CKD stage 5 could also cause minor elevation. troponin today scantly higher but she is not having ischemic symptoms. (7) COPD (chronic obstructive pulmonary disease): advanced, severe; quit smoking 11/2018. on chronic NC O2 at home. cont nebs, etc. no exacerbation at this time. (8) Hypothyroidism: TSH wnl. cont synthroid. (9) Renal artery stenosis: see "hypertensive urgency" above. follows with Dr Madden and Dr Murphy. (10) History of pulmonary embolism: noted (11) Hypertension: see discussion in "hypertensive urgency" (12) Chronic respiratory failure with hypoxia: stable on home O2 amount (3 l NC) 2nd to advanced COPD (13) Severe protein-calorie malnutrition: recommend MVI and boost. see above in "abnormal CT of abdomen" and "weight loss" above (14) Depression: increased her lexapro to 10mg daily consider outpatient counseling (15) Chronic kidney disease, stage V: baseline Cr 2 to 2.5 cr today 1.8 repeat BMP am (16) DVT prophylaxis: heparin 5000 BID daughter extensively updated at bedside again today cleared by PT for home but they recommend home health/home PT continue to remain hospitalized due to uncontrolled BPs Subjective upon entering her room she said "Doctor, you gotta let me go home. I have to get home." she asks multiple questions about her medical conditions. she continues to have headaches over her eyes. no chest pain, dyspnea. no BM in 3 + days. BPs continue to be labile and very high. orthostatics negative. Review of Systems Constitutional: no fever Respiratory: no cough Cardiovascular: no chest pain, no orthopnea, no paroxysmal nocturnal dyspnea and no edema Gastrointestinal: + constipation; no abdominal pain, no nausea and no vomiting Physical Exam Constitutional: + thin, + cachectic and + frail appearing; + not well developed, + not well nourished and no acute distress ENMT: external ear and nose normal, oropharynx normal Respiratory: no respiratory distress Auscultation: no crackles and no wheezes airation fair Cardiovascular: Rate/Rhythm: regular rate and regular rhythm Heart Sounds: normal S1 and normal S2; no murmur Vessels: posterior tibial pulses present and dorsalis pedis pulses present; no JVD Extremities: no edema Gastrointestinal (Abdomen): normal bowel sounds, soft, nontender, no hepatosplenomegaly Inspection/Auscultation: + abdomen distended (mild) Psychiatric: Orientation: alert, oriented to person and oriented to place Affect: + anxious affect Results & Data Vital Signs (Past 12 Hours) Vital Signs Temp Pulse Pulse Resp BP Pulse Ox 06/06/19 19:35 87 18 97 06/06/19 18:41 37 C 89 18 197/96 H 97 06/06/19 18:04 86 190/91 H 06/06/19 15:39 94 H 06/06/19 15:24 79 20 98 06/06/19 15:05 36.9 C 84 20 186/89 H 98 06/06/19 12:51 86 H 171/86 H 06/06/19 12:50 93 H 182/88 H 06/06/19 12:49 94 H 186/62 H 06/06/19 11:28 182/94 H 06/06/19 11:26 77 18 98 06/06/19 11:00 36.9 C 89 H 199/96 H 98 06/06/19 08:55 158/89 H 06/06/19 08:00 93 H Laboratory Results Laboratory Results - last 24 hr 06/06/19 06/06/19 06/06/19 06:23 06:23 06:23 Sodium 135 L Potassium 3.8 Chloride 96 L Carbon Dioxide 34 H Anion Gap 5.0 BUN 30 H Creatinine 1.89 H Est Cr Clr Drug Dosing 14.5 Est GFR ( Amer) 28.5 Est GFR (Non-Af Amer) 24.6 BUN/Creatinine Ratio 15.7 Glucose 79 Calcium 8.2 L Troponin I 0.117 H* Vitamin B1 Pending Vitamin B12 428 PG Care Time/CCT Total # of Minutes Spent Total Time Spent with Patient: Total time spent is greater than 50% in coordination of care (as documented) at patient's floor/unit and/or counseling patient: (1) Headache Headache type: unspecified Headache chronicity pattern: chronic headache Intractability: intractable Qualified Code(s): R51 - Headache (2) COPD (chronic obstructive pulmonary disease) COPD type: unspecified COPD Qualified Code(s): J44.9 - Chronic obstructive pulmonary disease, unspecified (3) Hypothyroidism Hypothyroidism type: acquired Qualified Code(s): E03.9 - Hypothyroidism, unspecified (4) Hypertension Hypertension type: essential hypertension Qualified Code(s): I10 - Essential (primary) hypertension (5) Depression Depression Type: other depression Qualified Code(s): F32.89 - Other specified depressive episodes
[2019-06-06] MEDS: TRAZODONE HCL 50 MG TAB PO SCH (21:37)
[2019-06-07] MEDS: TRAMADOL HCL 50 MG TABLET PO PRN ×2 (01:23→08:22)
[2019-06-07] MEDS: ACETAMINOPHEN 325 MG TAB PO PRN (04:56)
[2019-06-07] MEDS: LEVOTHYROXINE SODIUM 88 MCG TABLET PO SCH (06:22)
[2019-06-07 06:50] LABS: BUN Creatinine Ratio 14.8 (10-20); Calcium 8.4 mg/dl (8.5-10.1); Creatinine Clr Calc Pharmacy 16.1 ml/min; Est GFR (African American) 32.9; Est GFR (Non-African American) 28.4; Potassium 4.3 mmol/L (3.5-5.1)
[2019-06-07] MEDS: ALBUT/IPRATROP 3MG/0.5MG NEB 3 ML VIAL INH SCH ×2 (06:56→11:27)
[2019-06-07] MEDS: HydrALAZINE 10 MG TAB PO SCH (08:17)
[2019-06-07] MEDS: ESCITALOPRAM OXALATE 10 MG TAB PO SCH (08:17)
[2019-06-07] MEDS: METOPROLOL TARTRATE 25 MG TAB PO SCH (08:17)
[2019-06-07] MEDS: POTASSIUM CHLORIDE 20 MEQ TABCR PO SCH (08:18)
[2019-06-07] MEDS: HEPARIN SOD 5,000 UNIT/0.5 ML VIAL SQ SCH (08:18)
[2019-06-07] MEDS: PANTOprazole 40 MG TAB PO SCH (08:19)
[2019-06-07] MEDS ORDERED: CEROVITE ADV FORMULA TAB PO SCH (09:00)
[2019-06-07] MEDS: COLESTIPOL HCL 5 GM POWDER PACK PO SCH (11:30)
--- NOTE | 2019-06-07 12:41 | Discharge Summary ---
Date of Service June 07, 2019 Admission HPI Per Admitting Provider 78 y/o F Hx CKD IV, renal artery stenosis, hypothyroid, diastolic CHF, COPD, HTN, HLD. The pt presents with an elevated blood pressure which had failed to respond to outpt treatment. She describes a headache as her only symptom. She had received PO Clonidine and takes TID Hydralazine. Despite this, her SBP is ~ 200 at the time of admission. Labs are notable for a marginally elevated troponin and otherwise approximate her baseline. The pt reports that 3 days ago she had a profuse rectal bleed owing to some ruptured scar tissue. This resolved without specific treatment. She also reports considerable weight loss over the past few months and was due for a CT of the chest/abdomen pelvis to assess for occult CA. The pt's daughter who is present at bedside, opines that she has exhibited a degree of cognitive decline over the same time period. PMH: 1) CKD IV 2) Renal artery stenosis 3) HTN 4) HLD - cholesterol profile is unusual - total 385, LDL 236, HDL of 126 5) COPD - home 02 6) History of PE 7) GERD 8) AAA - repaired 9) Breast CA 10) Diastolic CHF and pulmonary HTN on echo 2018 11) LE edema - states this occurred with Amlodipine 12) Depression Surgical: 1) AAA repair 2) Mastectomy 3) LARISA Social: 60 PYH - quit smoking 11/2018. Does not drink alcohol. Family: Father due to an MA Principal Diagnosis Possible hypertensive crisis treated and resolved with Nitro paste & IV Hydralazine Discharge Exam Constitutional + thin, + cachectic and + frail appearing; + not well developed, + not well nourished and no acute distress ENMT external ear and nose normal, oropharynx normal Respiratory no respiratory distress Auscultation: no crackles and no wheezes Cardiovascular Rate/Rhythm: regular rate and regular rhythm Heart Sounds: normal S1 and normal S2; no murmur Vessels: posterior tibial pulses present and dorsalis pedis pulses present; no J VD Extremities: no edema Gastrointestinal (Abdomen) normal bowel sounds, soft, nontender, no hepatosplenomegaly Inspection/Auscultation: + abdomen distended (mild) Psychiatric Orientation: alert, oriented to person and oriented to place Affect: + anxious affect Lymphatic no cervical lymphadenopathy Discharge Data Allergies Allergy/AdvReac Type Severity Reaction Status Date / Time morphine Allergy Severe Hypotension Verified 06/04/19 22:01 Puhzayl-Mng-Wpu Reductase Allergy Severe Unknown Verified 06/04/19 22:01 Inhibitor Consultations 06/04/19 21:40 ED Decision to Admit Stat Ordered Studies 06/04/19 20:35 CT head/brain wo con Stat 06/04/19 22:10 CT abd pelvis wo con Stat CT chest wo con Stat 06/05/19 13:44 MR brain wo con Routine Hospital Course (1) Headache: Present for months. Sed rate and crp are normal making temporal arteritis unlikely. MRI brain without old/new stroke, no tumor/mass; considerable chronic microvascular disease seen likely due to long-standing HTN and vascular disease. Etiology of headaches uncertain. Denies neck pain making DJD of c-spine unlikely. - BP could be contributing but daughter states her BPs don't necessarily correlate with headaches at home. - Recommended to patient and daughter that she follow up with eye exam post-d/c to ensure no glaucoma, etc. - Will hopefully improve with BP control - Will follow up with neurology as well. (2) Memory loss: MRI brain with considerable microvascular disease. - Possibilities - "pseudo"dementia from depression vs early vascular dementia vs mild cognitive impairment vs metabolic disturbance (b1 def, etc). - Increased her lexapro to 10mg daily in the event some symptoms are "pseudo"dementia from depression. - B1 level pending. - Will get outpatient neuropsych testing with [facility]. Daughter works at [employer] Clinical [employer] lab. (3) Hypertensive urgency: Possible hypertensive crisis treated and resolved with Nitro paste & IV Hydralazine. Only end-organ symptom is headache but she has had the headaches for several months. Thus, I am uncertain if poorly controlled HTN is cause of headache. Likely due to renovascular disease. - Discharged on hydralazine 30mg TID & carvedilol 6.25mg PO BID. (4) Abnormal CT of the abdomen: Biggest abnormality seen is that of esophageal and gastric inflammation. Started PPI. Has scheduled f/u with Dr Bruno as outpatient in the next week. Suspect she will need EGD to r/o malignancy. (5) Weight loss: Highly concerning for occult malignancy. No obvious malignancy on pang-CT at admission, however. MRI brain w/o tumor. EGD/colonoscopy will be needed after discharge. If nothing is found on those procedures --- could some weight loss be from depression? some from chronic hypoxic resp failure/advanced lung disease? other? (6) Elevated troponin: Likely due to myocardial demand ischemia in setting of hypertensive urgency. No ACS. CKD stage 5 could also cause minor elevation. (7) COPD (chronic obstructive pulmonary disease): Advanced, severe; quit smoking 11/2018. on chronic NC O2 at home. - Cont nebs, etc. - No exacerbation at this time. (8) Hypothyroidism: TSH wnl. cont synthroid. (9) Renal artery stenosis: see "hypertensive urgency" above. follows with Dr Madden and Dr Murphy. (10) History of pulmonary embolism: noted (11) Chronic respiratory failure with hypoxia: stable on home O2 amount (3 l NC) 2nd to advanced COPD (12) Severe protein-calorie malnutrition: recommend MVI and boost. see above in "abnormal CT of abdomen" and "weight loss" above (13) Depression: increased her lexapro to 10mg daily consider outpatient counseling (14) Chronic kidney disease, stage V: baseline Cr 2 to 2.5 cr today 1.7 on discharge. (15) DVT prophylaxis: heparin 5000 BID daughter extensively updated at bedside again today cleared by PT for home but they recommend home health/home PT continue to remain hospitalized due to uncontrolled BPs Total Time Total Time Spent Total Time Spent (In Minutes): 45 Total Time Includes: Examination of the Patient, Medication Reconciliation and Communication With Other Providers Discharge Plan Discharge Items Patient Disposition: Home - Self-Care Reason For Visit: HTN URGENCY Discharge Diagnosis: Hypertensive urgency Discharge Goals: Decrease discomfort Activity: Resume your previous activity Non-emergency contact: Primary Care Provider Call non-emergency contact if: you have any medication questions, your symptoms worsen and your pain is not controlled Follow-up/Referrals: Bethany Brambila MD [Primary Care Provider] - Diet: Low Sodium (2gm) Addtl Provider Instructions: Ms. Guerra, You were admitted with high blood pressure and a headache. We have gently lowered your blood pressure with an increase in your hydralazine and adding a new medication called carvedilol. We have worked with your PCP, Dr. Brambila to have good follow up care. After checking a variety of testing and labs, we have not found a reason for your headaches. I would encourage you to continue taking the tramadol and Tylenol as needed and follow up with a neurologist. For some of your memory issues, your daughter will help arrange testing at [facility] [employer]. Prescriptions: New hydralazine 10 mg Tablet 30 mg PO TID Qty: 270 RF: 0 escitalopram oxalate 10 mg Tablet 10 mg PO QAM Qty: 30 RF: 0 carvedilol 6.25 mg tablet 6.25 mg PO BID Qty: 60 RF: 0 Continued ranitidine HCl [Zantac] 150 mg Tablet 150 mg PO DAILY PRN (Reason: Unknown) RF: 0 levothyroxine 88 mcg Capsule 88 mcg PO QAM RF: 0 Spirulina Powder 1 ea MISCELLANEOUS DAILY RF: 0 Bevespi Aerosphere 9-4.8 mcg Hfa Aerosol Inhaler 2 puff INHALATION BID RF: 0 ipratropium-albuterol 0.5 mg-3 mg(2.5 mg base)/3 mL Solution For Nebulization 3 ml INHALATION QID RF: 0 alendronate 70 mg Tablet 70 mg PO WK RF: 0 ergocalciferol (vitamin D2) [Vitamin D2] 50,000 unit capsule 50,000 unit PO WK RF: 0 cetirizine [Zyrtec] 10 mg Tablet 10 mg PO DAILY PRN (Reason: Unknown) RF: 0 potassium chloride 20 mEq tablet extended release 20 meq PO BID RF: 0 trazodone 50 mg tablet 50 mg PO HS RF: 0 nicotine (polacrilex) [Nicorette] 2 mg Lozenge 2 mg BUCCAL Q3H PRN (Reason: Smoking Cessation) RF: 0 colestipol 5 gram packet 5 g PO DAILY RF: 0 tramadol 50 mg tablet 50 mg PO TID PRN (Reason: Pain) Qty: 20 RF: 0 Discontinued escitalopram oxalate [Lexapro] 5 mg Tablet 5 mg PO QAM RF: 0 hydralazine 10 mg tablet 10 mg PO QID RF: 0 Stand-Alone Forms: [facility] Discharge Orders: Discharge Order (Routine); Ordered 06/07/19 Ordered By: Raleigh Bahena Admission Data Admit Date/Time: 06/04/19 22:25 Attending Provider: Raleigh Bahena Admit Provider: Bishop Bourne Primary Care Provider: Bethany Brambila Other Providers: Bishop Bourne Service: Telemetry
== END 2019-06-07 14:02 | disposition home health service (06) | DRG 304 ==
LOC: ED 19:20 → SUATTDRO 22:25 → 2S 22:25

== ENCOUNTER 2019-07-11 12:26 | Inpatient (IN) ==
[2019-07-11] MEDS ORDERED: NITROGLYCERIN 2% OINTMENT 30GM TUBE EXT STA (12:50)
[2019-07-11] MEDS ORDERED: ALBUT/IPRATROP 3MG/0.5MG NEB 3 ML VIAL INH STA (12:50)
--- NOTE | 2019-07-11 13:16 | XRay Report ---
SINGLE VIEW CHEST CLINICAL HISTORY: Dyspnea. FINDINGS: An AP, portable, upright chest radiograph is compared to chest x-ray and chest CT dated 06/04. The examination is degraded by portable technique and apical lordotic positioning. There are l arge calcified mediastinal nodes. The heart is enlarged noting atherosclerotic calcification of the t horacic aorta. The pulmonary vasculature is noncongested. Enlargement of the central pulmonary arteri es suggests pulmonary artery hypertension. Advanced emphysema and chronic interstitial thickening are similar to previous. There are small pleural effusions and left basilar consolidation. No pneumothor ax is seen. The skeletal structures are osteopenic. The bony thorax is grossly intact. Surgical clips are noted in the right axilla. Calcified granulomas are noted in the liver. The proximal end of an a ortic stent graft is partially imaged. IMPRESSION: 1. Cardiomegaly and advanced emphysema. 2. There are small pleural effusions and dense left basilar consolidation. The appearance is typical for pneumonia/aspiration pneumonitis. Clinical correlation will be required and radiographic follow-u p to resolution is recommended. Electronically signed by: Bunny Bernal M.D. 07/11/2019 1:15 PM
[2019-07-11] MEDS ORDERED: PIPERACILLIN/TAZOBACTAM 4.5 GM/120 ML BAG IV ONE (13:18)
[2019-07-11 14:05] LABS: Base Excess VBG 5.1 mEq/L; Oxygen Saturation VBG 62.5 %; pH VBG 7.39 (7.36-7.41)
[2019-07-11 14:21] LABS: Partial Thromboplastin Time 26.8 Seconds (21.0-31.0); Prothrombin Time 10.5 Seconds (9.0-12.0)
[2019-07-11 14:25] LABS: Alanine Aminotransferase 16 U/L (12-78); Albumin Level 2.9 gm/dl (3.4-5.0); Aspartate Aminotransferase 18 U/L (15-37); BUN Creatinine Ratio 12.9 (10-20); Blood Urea Nitrogen 22 mg/dl (7-18); Calcium 8.4 mg/dl (8.5-10.1); Carbon Dioxide 31 mmol/L (21-32); Chloride 88 mmol/L (98-107); Est GFR (African American) 33.1; Est GFR (Non-African American) 28.6; Glucose 91 mg/dl (70-99); Magnesium 1.8 mg/dl (1.8-2.4); Potassium 4.6 mmol/L (3.5-5.1); Sodium 125 mmol/L (136-145)
[2019-07-11] MEDS ORDERED: FUROSEMIDE 40 MG/4 ML VIAL IV STA (14:31)
[2019-07-11 14:37] LABS: Alkaline Phosphatase 55 U/L (45-117); Bilirubin,Total 0.6 mg/dl (0.2-1); Globulin 2.8 gm/dl (2.5-4.0); NT Pro B Type Natriuretic Pept > 35000 pg/ml (0-1800); Total Protein 5.7 gm/dl (6.4-8.2); Troponin I 0.082 ng/ml (0-0.045)
[2019-07-11 14:51] LABS: Basophils # (auto) 0.02 K/uL (0-0.2); Basophils % (auto) 0.3 %; Eosinophils # (auto) 0.01 K/uL (0-0.5); Eosinophils % (auto) 0.2 %; Hematocrit (blood only) 31.4 % (37-47); Hemoglobin 10.7 g/dL (12.0-16.0); Immature Granulocytes # (auto) 0.02 K/uL (0.00-0.02); Immature Granulocytes % (auto) 0.3 %; Lymphocytes # (auto) 0.27 K/uL (1.2-3.4); Lymphocytes % (auto) 4.5 %; Mean Corpuscular Hgb Conc 34.1 g/dL (32-36); Mean Corpuscular Volume 96.9 fL (80-100); Mean Platelet Volume 8.7 fL (7.4-10.4); Monocytes % (auto) 6.6 %; Neutrophils # (auto) 5.31 K/uL (1.4-6.5); Neutrophils % (auto) 88.1 %; Platelet Count 133 K/uL (130-400); RDW Coefficient of Variation 15.8 % (11.5-14.5); RDW Standard Deviation 55.4 fL (36.4-46.3); Red Blood Count 3.24 M/uL (4.2-5.4); White Blood Count 6.03 K/uL (4.8-10.8)
--- NOTE | 2019-07-11 15:27 | History & Physical Report ---
Date of Service July 11, 2019 Assessment & Plan (1) Pneumonia: Admit telemetry Left lower lobe pneumonia with bilateral effusions, Afebrile, no leukocytosis Continue Zosyn started in ED Duonebs q4h Bipap as needed, titrate O2, wears 3L at baseline Solumedrol 60 mg IV bid (2) CHF (congestive heart failure): Acute on chronic diastolic HF BNP 35,000 on admission Last Echo 11/21 with EF 60% 40 mg IV lasix given in the ED - will hold off on further diuresis, can reassess in the morning to determine if more is necessary Strict Is&Os, daily weights (3) Chronic kidney disease, stage IV (severe): Baseline creat 1.6-2, currently at baseline Sees Dr. Murphy outpatient - consider consulting if further diuresis is necessary trend prp (4) Elevated troponin: Troponin 0.082 with some T wave inversions on EKG in lateral leads At the time of my assessment, no further chest tightness Likely demand ischemia due to hypoxia Will trend troponin, repeat EKG now that respiratory status has improved Not on ASA - will give 81 mg tonight and daily (5) COPD (chronic obstructive pulmonary disease): Continue home inhalers Duonebs IV solumedrol (6) Hypertension: Recent hospitalization for hypertensive urgency Blood pressures elevated at 167/106 on admission Given IV lasix in ED Continue home carvedilol, hydralazine Will add prn IV hydralazine (7) Hyponatremia: Na 125 on admission Will recheck this evening and again in the morning (8) Abdominal bruit: noted on left lower quadrant History of AAA Follow up outpatient (9) DVT prophylaxis: SCDs, heparin subq History of Present Illness Ms. Guerra is accompanied by her daughter who provides much of her history as Ms. Guerra is finding speaking while on the bipap difficult. SOB began about three days ago with chest tightness. Today she was too sob to eat or drink much. She has not had cough, fever or sick contacts. She has been very weak and feels "foggy". No n/v/d. Lower extremities have been swelling. Her daughter mentions that she has lost about 20 pounds since November unintentionally. 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 Family: parents both with heart disease, mother with kidney disease Primary Care Provider: Bethany Brambila MD Allergies Allergy/AdvReac Type Severity Reaction Status Date / Time morphine Allergy Severe Hypotension Verified 07/11/19 13:17 Rszgjmz-Xyw-Yzm Reductase Allergy Severe Unknown Verified 07/11/19 13:17 Inhibitor Home Medications Home Medications Medication Instructions Recorded Confirmed Type Bevespi Aerosphere 2 puff INHALATION BID 03/10/19 07/11/19 History levothyroxine 88 mcg PO QAM 03/10/19 07/11/19 History ranitidine HCl [Zantac] 150 mg PO DAILY PRN 03/10/19 07/11/19 History alendronate 70 mg PO WK 03/27/19 07/11/19 History ipratropium-albuterol 3 ml INHALATION QID 03/27/19 07/11/19 History cetirizine [Zyrtec] 10 mg PO DAILY PRN 06/04/19 07/11/19 History colestipol 5 g PO DAILY 06/04/19 07/11/19 History ergocalciferol (vitamin D2) 50,000 unit PO WK 06/04/19 07/11/19 History [Vitamin D2] nicotine (polacrilex) [Nicorette] 2 mg BUCCAL Q3H PRN 06/04/19 07/11/19 History potassium chloride 20 meq PO BID 06/04/19 07/11/19 History trazodone 50 mg PO HS 06/04/19 07/11/19 History carvedilol 6.25 mg PO BID #60 tab 06/07/19 07/11/19 Rx escitalopram oxalate 10 mg PO QAM #30 tab 06/07/19 07/11/19 Rx tramadol 50 mg PO TID PRN #20 tab 06/07/19 07/11/19 Rx hydralazine 50 mg tablet 50 mg PO TID #90 tab 06/17/19 07/11/19 Rx Past Med/Surg History Family History Father Myocardial infarction Social History Preferred Language: Armenian Communication Ability: Effective 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 Beliefs That Will Affect Care: None Current Living Situation: Family Current Living Situation Comment: Lives with daughter Other Information That Helps Us Care for You: No Feels Safe at Home: Yes Safety Concerns: Feels Safe At This Time Smoking Status: Former smoker Tobacco Type: cigarettes ; Cigarettes Per Day: 20 ; Second Hand Exposure: No ; Hx Alcohol Use: No Hx Substance Use: No Review of Systems Review of Systems: All systems reviewed & are unremarkable except as noted in HPI & below Physical Exam Physical Exam: General: no distress Eyes: normal inspection, PERLL Respiratory: chest non tender, clear to auscultation, normal breath sounds, no respiratory distress, no accessory muscle use Cardiac: regular rate and rhythm, no rub or gallop, no murmur, +1 pitting edema bilateral LE, +JVD, abdominal bruit LLQ GI/: active bowel sounds, no abd pain or tenderness, soft, non distended Extremities: normal range of motion, normal strength, non tender Neuro:oriented x 3, moves all extremities Psych: alert, normal mood and affect Skin: normal color, dry Results & Data Vital Signs (Past 12 Hours) Vital Signs Temp Pulse Pulse Resp BP BP Pulse Ox 07/11/19 14:26 83 16 167/106 H 95 07/11/19 14:20 80 26 H 97 07/11/19 13:39 94 07/11/19 12:36 36.6 C 83 26 H 156/83 H 84 L Code Status & VTE Plan Code Status full code VTE Prophylaxis Plan VTE Prophylaxis will be ordered: Yes Supervising Physician Co-Signing Physician Notes Patient seen and examined with Marisol HILLMAN. I agree with her HPI, history, ROS, physical exam and A/P. Case was discussed with her as well as the le points in treatment. I personally reviewed the lab work and imaging and other diagnostic studies. Patient seen in her room after getting to the floor. She was breathing much easier and BIPAP removed by respiratory therapy. On exam she exhibited pursed lip breathing. Her lungs were clear with no wheezing, no rhonchi, no crackles, just had diminished breath sounds. Reviewed CXR, evidence of left lower lobe infiltrate. CBC showed a normal WBC. VBG showed normal pH with CO 2 minimally elevated, really no signs of CO2 retention. BMP with low sodium 126, CKD with Cr of 1.67. - Acute respiratory failure: increased work of breathing pursed lip due to pneumonia and COPD exacerbation treat with Zosyn and Solu Medrol and nebulizers received a dose of Lasix in the ED but not much evidence of volume overload, would hold on further doses repeat BMP later today and tomorrow AM updated patient's daughter, she will be here a few days to recover PG Care Time/CCT Total # of Minutes Spent Total Time Spent with Patient: Total time spent is greater than 50% in coordination of care (as documented) at patient's floor/unit and/or counseling patient: (1) COPD (chronic obstructive pulmonary disease) COPD type: unspecified COPD Qualified Code(s): J44.9 - Chronic obstructive pulmonary disease, unspecified (2) Hypertension Hypertension type: essential hypertension Qualified Code(s): I10 - Essential (primary) hypertension (3) Pneumonia Laterality: left Lung location: lower lobe of lung Pneumonia type: due to unspecified organism Qualified Code(s): J18.1 - Lobar pneumonia, unspecified organism
[2019-07-11] MEDS ORDERED: PIPERACILL/TAZOBAC CONSULT ACTIVE PRN (16:43)
[2019-07-11] MEDS ORDERED: NICOTINE POLACRILEX 2 MG GUM MT PRN (16:43)
[2019-07-11] MEDS ORDERED: ONDANSETRON INJ 2 MG/ML 2 ML VIAL IV PRN (16:43)
[2019-07-11] MEDS ORDERED: PIPERACILLIN/TAZOBACTAM 4.5 GM in DEXTROSE 5% 100 ML IV STA (16:43)
[2019-07-11] MEDS ORDERED: ALUMINUM/MAGNESIUM SUSP 30 ML UDC PO PRN (16:43)
[2019-07-11] MEDS ORDERED: HydrALAZINE HCL 20 MG/ML VIAL IV PRN (16:43)
[2019-07-11] MEDS ORDERED: POLYETHYLENE (MIRALAX) 17 GM PACK PO PRN (16:43)
[2019-07-11] MEDS ORDERED: CETIRIZINE HCL 10 MG TABLET PO PRN (16:43)
[2019-07-11] MEDS: methylPREDNISolone 60 MG in SYRINGE 0 ML IV SCH (17:29)
[2019-07-11] MEDS: CARVEDILOL 6.25 MG TAB PO SCH (17:37)
[2019-07-11 17:56] LABS: BUN Creatinine Ratio 12.4 (10-20); Calcium 8.4 mg/dl (8.5-10.1); Creatinine Clr Calc Pharmacy 16.5 ml/min; Est GFR (Non-African American) 27.6; Potassium 4.1 mmol/L (3.5-5.1)
[2019-07-11] MEDS: ASPIRIN 81 MG ECTAB PO SCH (18:40)
[2019-07-11] MEDS ORDERED: Nursing to Pharmacy Communication ONE (18:42)
--- NOTE | 2019-07-11 18:50 | Emergency Department Note ---
Entered by Mckenna Carrington acting as a scribe for Bunny Hawk MD History of Present Illness General Chief complaint: Shortness of Breath/Dyspnea Stated complaint: SOB Time Seen by Provider: 07/11/19 12:41 Source: patient History of Present Illness Provider complaint: Shortness of breath Onset (ago): day(s) 4 Location: chest Pain Consistency: + other (worsening ) Maximum Pain Intensity: 4 Quality: + constant Associated symptoms: + confusion, + shortness of breath and + other (Positive: unable to take deep breaths, worsening feet swelling, chest heaviness. ) The patient is an 78 year old female with past medical history of COPD, kidney failure, CHF, hypothyroidism, who presents to the ED with complaints of worsening constant shortness of breath that started 4 days ago. The patient reports she cannot take deep breaths. She notes she was drinking water and was unable to drink and breathe at the same time. The patient states she wears 3 liters of oxygen at home. She reports her feet swelling is worsened. The patient additionally notes her chest feels heavy. The daughter notes the patient has been more confused lately. The patient states her blood pressure was high this morning but it came down once she took her blood pressure medications. Home Medications Home Medications Medication Instructions Recorded Confirmed Type Bevespi Aerosphere 2 puff INHALATION BID 03/10/19 07/11/19 History levothyroxine 88 mcg PO QAM 03/10/19 07/11/19 History ranitidine HCl [Zantac] 150 mg PO DAILY PRN 03/10/19 07/11/19 History alendronate 70 mg PO WK 03/27/19 07/11/19 History ipratropium-albuterol 3 ml INHALATION QID 03/27/19 07/11/19 History cetirizine [Zyrtec] 10 mg PO DAILY PRN 06/04/19 07/11/19 History colestipol 5 g PO DAILY 06/04/19 07/11/19 History ergocalciferol (vitamin D2) 50,000 unit PO WK 06/04/19 07/11/19 History [Vitamin D2] nicotine (polacrilex) [Nicorette] 2 mg BUCCAL Q3H PRN 06/04/19 07/11/19 History potassium chloride 20 meq PO BID 06/04/19 07/11/19 History trazodone 50 mg PO HS 06/04/19 07/11/19 History carvedilol 6.25 mg PO BID #60 tab 06/07/19 07/11/19 Rx escitalopram oxalate 10 mg PO QAM #30 tab 06/07/19 07/11/19 Rx tramadol 50 mg PO TID PRN #20 tab 06/07/19 07/11/19 Rx hydralazine 50 mg tablet 50 mg PO TID #90 tab 06/17/19 07/11/19 Rx Allergies Allergy/AdvReac Type Severity Reaction Status Date / Time morphine Allergy Severe Hypotension Verified 07/11/19 13:17 [id number] Reductase Allergy Severe Unknown Verified 07/11/19 13:17 Inhibitor Past Med/Surg History Family History Father Myocardial infarction Social History Preferred Language: Filipino Communication Ability: Effective Internal Control Consultant Required: No Beliefs That Will Affect Care: None Current Living Situation: Family Current Living Situation Comment: Lives with daughter Other Information That Helps Us Care for You: No Feels Safe at Home: Yes Safety Concerns: Feels Safe At This Time Smoking Status: Former smoker Tobacco Type: cigarettes ; Cigarettes Per Day: 20 ; Second Hand Exposure: No ; Hx Alcohol Use: No Hx Substance Use: No Review of Systems See HPI for pertinent positives & negatives. and A total of 10 systems reviewed and were otherwise negative Physical Exam Vital Signs Vital Signs - 24 hr 07/11/19 12:36 07/11/19 13:39 07/11/19 14:20 Temperature 36.6 C Temperature Source Oral Sepsis Recent Fever Within 48 Hours No Sepsis New/Unexplained Change in Mental Status No Sepsis Action Taken by Nursing No Action Required Pulse Oximetry Post Tiitration Pulse Rate 83 80 Pulse Rate [Apical] Respiratory Rate 26 H 26 H Respiratory Effort / Characteristics Spontaneous Labored Respiratory Depth Shallow Blood Pressure 156/83 H Blood Pressure [Left Arm] Blood Pressure Mean 107 Blood Pressure Mean [Left Arm] Pulse Oximetry 84 L 94 97 Oxygen Delivery Method Nasal Cannula Nasal Cannula Oxygen Flow Rate 3 5 Fraction of Inspired Oxygen 30 07/11/19 14:26 07/11/19 14:50 Temperature Temperature Source Sepsis Recent Fever Within 48 Hours Sepsis New/Unexplained Change in Mental Status Sepsis Action Taken by Nursing Pulse Oximetry Post Tiitration 96 Pulse Rate Pulse Rate [Apical] 83 Respiratory Rate 16 Respiratory Effort / Characteristics Respiratory Depth Blood Pressure Blood Pressure [Left Arm] 167/106 H Blood Pressure Mean Blood Pressure Mean [Left Arm] 126 Pulse Oximetry 95 Oxygen Delivery Method BiPAP BiPAP Oxygen Flow Rate Fraction of Inspired Oxygen GENERAL: Patient is in mild distress. HEENT: No acute trauma, normocephalic atraumatic, mucous membranes moist, no nasal congestion, no scleral icterus. NECK: No stridor, no adenopathy, no meningismus, trachea is midline. LUNGS: Decreased breath sounds. Appears visibly short of breath. There is a slightly increased respiratory rate. Crackles bilaterally. HEART: Without murmurs gallops or rubs, regular rate and rhythm. ABDOMEN: Soft, nontender, bowel sounds positive, no hernias, no peritonitis. EXTREMITIES: No cyanosis, full range of motion of all the joints without pain or difficulty, no signs for acute trauma. Moderate bilateral pedal edema. NEUROLOGIC: Oriented x 3, no acute motor or sensory deficits, no focal weakness. SKIN: No rash, no jaundice, no diaphoresis. Course 1247: The patient was evaluated in room C10. A complete history and physical exam was performed. 1331: I checked on the patient and updated her and the daughter on test results. 1405: I checked on the patient. She notes she feels like she is suffocating. I ordered BiPAP. 1423: I discussed the patient's case with Dr. Griffin, [facility] Hospitalist. She will evaluate the patient for further management. 1432: Upon reevaluation, the patient is resting comfortably. I discussed laboratory and radiographic results with her. The patient and daughter verbalized agreement of the treatment plan. The patient will be evaluated for further management and care. Administered Medications Albuterol (Duoneb) 3 ml NEB Q4R [facility] Stop: 08/10/19 18:59 Last Admin: 07/11/19 19:02 Dose: 3 ml Documented by: [id number] Aspirin (Ecotrin Ectab) 81 mg PO QAM [facility] Stop: 08/10/19 16:04 Last Admin: 07/11/19 18:40 Dose: 81 mg Documented by: [id number] Carvedilol (Coreg) 6.25 mg PO BIDM [facility] Stop: 08/10/19 16:59 Last Admin: 07/11/19 17:37 Dose: 6.25 mg Documented by: [id number] Methylprednisolone 60 mg/ (Syringe) 0.96 mls @ 1.5 mls/min IV Q12H [facility] Stop: 08/10/19 16:59 Last Admin: 07/11/19 17:29 Dose: 1.5 mls/min Documented by: [id number] Miscellaneous (Order Awaiting Action) 1 ea N/A QS [facility] Stop: 08/10/19 17:59 Last Admin: 07/11/19 18:40 Dose: Not Given Documented by: [id number] Discontinued Medications Albuterol (Duoneb) 3 ml INH NOW STA Stop: 07/11/19 12:51 Last Admin: 07/11/19 13:32 Dose: 3 ml Documented by: [id number] Furosemide (Lasix) 40 mg IV NOW STA Stop: 07/11/19 14:32 Last Admin: 07/11/19 15:02 Dose: 40 mg Documented by: [id number] Piperacillin Sod/Tazobactam Sod (Zosyn) 4.5 gm in 120 mls @ 240 mls/hr IV NOW ONE Stop: 07/11/19 13:47 Last Infusion: 07/11/19 14:18 Dose: 0 mls/hr Documented by: [id number] Admin: 07/11/19 13:48 Dose: 240 mls/hr Documented by: [id number] Nitroglycerin (Nitro-Bid 2%) 2 inch EXT NOW STA Stop: 07/11/19 12:51 Last Admin: 07/11/19 13:32 Dose: 2 inch Documented by: [id number] Medical Decision Making Differential Diagnosis Differential Diagnosis: Exacerbation of COPD. CHF, ME, anemia, electrolyte imbalance, pneumonia, renal or liver failure Medical Records Attestation: I reviewed the patient's medical records. Home Medications Current Medication List: was personally reviewed by me Laboratory Data Attestation: I reviewed the patient's lab results. Result diagrams: 07/11/19 14:37 07/11/19 17:19 Lab Results 07/11/19 07/11/19 07/11/19 Range/Units 13:23 13:23 13:23 WBC Not Reportable RBC Not Reportable Hgb Not Reportable Hct Not Reportable MCV Not Reportable MCH Not Reportable MCHC (32-36) g/dL RDW Std Deviation (36.4-46.3) fL RDW Coeff of Umberto (11.5-14.5) % Plt Count (130-400) K/uL MPV (7.4-10.4) fL Immature Gran % (Auto) % Neut % (Auto) % Lymph % (Auto) % Win[place] % (Auto) % Eos % (Auto) % Baso % (Auto) % Immature Gran # (Auto) (0.00-0.02) K/uL Neut # (Auto) (1.4-6.5) K/uL Lymph # (Auto) (1.2-3.4) K/uL Winona # (Auto) (0.11-0.59) K/uL Eos # (Auto) (0-0.5) K/uL Baso # (Auto) (0-0.2) K/uL PT 10.5 (9.0-12.0) Seconds INR 1.0 (0.9-1.1) APTT 26.8 (21.0-31.0) Seconds PTT Ratio 1.0 VBG pH (7.36-7.41) VBG pCO2 (38-50) mmHg VBG pO2 mmHg VBG HCO3 mmol/L VBG O2 Saturation % VBG Base Excess mEq/L Barometric Pressure mm/Hg Sodium 125 L (136-145) mmol/L Potassium 4.6 (3.5-5.1) mmol/L Chloride 88 L (98-107) mmol/L Carbon Dioxide 31 (21-32) mmol/L Anion Gap 6.0 (3-11) BUN 22 H (7-18) mg/dl Creatinine 1.67 H (0.6-1.2) mg/dl Est Cr Clr Drug Dosing 17.0 ml/min Est GFR ( Amer) 33.1 Est GFR (Non-Af Amer) 28.6 BUN/Creatinine Ratio 12.9 (10-20) Glucose 91 (70-99) mg/dl Lactate (0.4-2.0) mmol/L Calcium 8.4 L (8.5-10.1) mg/dl Magnesium 1.8 (1.8-2.4) mg/dl Total Bilirubin 0.6 (0.2-1) mg/dl AST 18 (15-37) U/L ALT 16 (12-78) U/L Alkaline Phosphatase 55 (45-117) U/L Troponin I 0.082 H* (0-0.045) ng/ml NT-Pro-B Natriuret Pep > 22696 H (0-1800) pg/ml Total Protein 5.7 L (6.4-8.2) gm/dl Albumin 2.9 L (3.4-5.0) gm/dl Globulin 2.8 (2.5-4.0) gm/dl Albumin/Globulin Ratio 1.0 (0.9-2) 07/11/19 07/11/19 07/11/19 Range/Units 13:51 13:51 14:37 WBC 6.03 RBC 3.24 L Hgb 10.7 L Hct 31.4 L MCV 96.9 MCH 33.0 MCHC 34.1 (32-36) g/dL RDW Std Deviation 55.4 H (36.4-46.3) fL RDW Coeff of Umberto 15.8 H (11.5-14.5) % Plt Count 133 (130-400) K/uL MPV 8.7 (7.4-10.4) fL Immature Gran % (Auto) 0.3 % Neut % (Auto) 88.1 % Lymph % (Auto) 4.5 % Winona % (Auto) 6.6 % Eos % (Auto) 0.2 % Baso % (Auto) 0.3 % Immature Gran # (Auto) 0.02 (0.00-0.02) K/uL Neut # (Auto) 5.31 (1.4-6.5) K/uL Lymph # (Auto) 0.27 L (1.2-3.4) K/uL Winona # (Auto) 0.40 (0.11-0.59) K/uL Eos # (Auto) 0.01 (0-0.5) K/uL Baso # (Auto) 0.02 (0-0.2) K/uL PT (9.0-12.0) Seconds INR (0.9-1.1) APTT (21.0-31.0) Seconds PTT Ratio VBG pH 7.39 (7.36-7.41) VBG pCO2 52 H (38-50) mmHg VBG pO2 33 mmHg VBG HCO3 31 mmol/L VBG O2 Saturation 62.5 % VBG Base Excess 5.1 mEq/L Barometric Pressure 733.7 mm/Hg Sodium (136-145) mmol/L Potassium (3.5-5.1) mmol/L Chloride (98-107) mmol/L Carbon Dioxide (21-32) mmol/L Anion Gap (3-11) BUN (7-18) mg/dl Creatinine (0.6-1.2) mg/dl Est Cr Clr Drug Dosing ml/min Est GFR ( Amer) Est GFR (Non-Af Amer) BUN/Creatinine Ratio (10-20) Glucose (70-99) mg/dl Lactate 0.8 (0.4-2.0) mmol/L Calcium (8.5-10.1) mg/dl Magnesium (1.8-2.4) mg/dl Total Bilirubin (0.2-1) mg/dl AST (15-37) U/L ALT (12-78) U/L Alkaline Phosphatase (45-117) U/L Troponin I (0-0.045) ng/ml NT-Pro-B Natriuret Pep (0-1800) pg/ml Total Protein (6.4-8.2) gm/dl Albumin (3.4-5.0) gm/dl Globulin (2.5-4.0) gm/dl Albumin/Globulin Ratio (0.9-2) Imaging Data Radiologist's Impression: Radiology results as stated below per my review and the radiologist's interpretation: SINGLE VIEW CHEST CLINICAL HISTORY: Dyspnea. FINDINGS: An AP, portable, upright chest radiograph is compared to chest x-ray and chest CT dated 06/04/2019. The examination is degraded by portable technique and apical lordotic positioning. There are large calcified mediastinal nodes. The heart is enlarged noting atherosclerotic calcification of the thoracic aorta. The pulmonary vasculature is noncongested. Enlargement of the central pulmonary arteries suggests pulmonary artery hypertension. Advanced emphysema and chronic interstitial thickening are similar to previous. There are small pleural effusions and left basilar consolidation. No pneumothorax is seen. The skeletal structures are osteopenic. The bony thorax is grossly intact. Surgical clips are noted in the right axilla. Calcified granulomas are noted in the liver. The proximal end of an aortic stent graft is partially imaged. IMPRESSION: 1. Cardiomegaly and advanced emphysema. 2. There are small pleural effusions and dense left basilar consolidation. The appearance is typical for pneumonia/aspiration pneumonitis. Clinical correlation will be required and radiographic follow-up to resolution is recommended. Electronically signed by: Bunny Bernal M.D. 07/11/2019 1:15 PM ECG Data Attestation: I personally reviewed and interpreted this ECG as follows: Indication: SOB/dyspnea Rate (beats per minute): 84 Rhythm: normal sinus Findings: + other (T wave flattening laterally); no PVC and no ST elevation Comparison ECG Date: from (06/04/19) Change: the following changes noted (Lateral T wave changes are new ) Blood Pressure Blood Pressure Findings: Elevated blood pressure Blood Pressure Disposition: further management by hospitalist MONIQUE Narrative There is no leukocytosis. The patient is slightly anemic with a hemoglobin of 10.7. There is no coagulopathy. VBG does not show any acidosis, no significant CO2 retention. Renal panel testing shows a lower sodium value, this appears chronic for the patient. Creatinine was elevated but at about her baseline looking back at previous testing. No worrisome liver enzyme elevation. EKG shows a sinus rhythm with some subtle ST changes laterally. No evidence for acute ME. Cardiac enzyme testing x1 does show a slight troponin elevation, looking back at previous testing, the patient's troponin is typically mildly elevated. Chest film shows some mild CHF with small bilateral pleural effusions. There is a left base infiltrate present. On exam, the patient did physically seem short of breath. She was hypoxic without more than her typical O2 supplementation. The patient was given a DuoNeb, she received nitroglycerin paste. She received IV Zosyn as antibiotic coverage. I did give a dose of IV Lasix to help with fluid overload. The patient was eventually placed on BiPAP to help her breathing. The BiPAP did seem to help with her dyspnea. I spoke to the patient, I talked with case management. I do think the patient requires a hospital stay. She presents hypoxic. She has fluid overload with a left-sided pneumonia. She is requiring far more than her typical amount of baseline supplemental oxygen. She is now currently on BiPAP to aid her breathing. The on-call hospitalist was consulted. Impression & Plan Hypoxia, Shortness of breath, Pneumonia, Pleural effusion, Fluid overload Critical Care Time Critical Care Time: Yes Total Critical Care Time: 42 I have personally spent 42 minutes of critical care time in the direct management of this patient. This includes bedside care, interpretation of diagnostic studies, and testing, discussion with consultants, patient, and family members, and other required patient management activities. This 42 minutes is in excess of all separately billable procedures. Discharge Plan Visit Data *Final* Discharge Date/Time: 07/11/19 16:05 Chief Complaint: Shortness of Breath/Dyspnea Stated Complaint: SOB ED Provider: Bunny Hawk Discharge Problem: Hypoxia, Shortness of breath, Pneumonia, Pleural effusion, Fluid overload Patient Disposition: Admitted As Inpatient Discharge Instructions Interventions: ED Discharge Assessment Last Done: 07/11/19 16:05 Discharge Problem: Pneumonia Qualifiers: Pneumonia type: due to unspecified organism Laterality: left Lung location: lower lobe of lung Qualified Code(s): J18.1 - Lobar pneumonia, unspecified organism Fluid overload Qualifiers: Hypervolemia type: unspecified Qualified Code(s): E87.70 - Fluid overload, unspecified The scribe's documentation has been prepared under my direction and personally reviewed by me in its entirety. I confirm that the note above accurately reflects all work, treatment, procedures, and medical decision making performed by me.
[2019-07-11] MEDS ORDERED: ALBUT/IPRATROP 3MG/0.5MG NEB 3 ML VIAL INH SCH (19:00)
[2019-07-11] MEDS: ALBUT/IPRATROP 3MG/0.5MG NEB 3 ML VIAL NEB SCH ×2 (19:02→22:51)
[2019-07-11] MEDS: HydrALAZINE TAB 50 MG TAB PO SCH (20:13)
[2019-07-11] MEDS: TRAZODONE HCL 50 MG TAB PO SCH (20:14)
[2019-07-11] MEDS: POTASSIUM CHLORIDE 20 MEQ TABCR PO SCH (20:15)
[2019-07-11] MEDS: HEPARIN SOD 5,000 UNIT/0.5 ML VIAL SQ SCH (20:15)
[2019-07-11] MEDS: PIPERACILLIN/TAZOBACTAM 3.375 GM in DEXTROSE 5% 100 ML IV SCH (21:23)
[2019-07-12] MEDS: ALBUT/IPRATROP 3MG/0.5MG NEB 3 ML VIAL NEB SCH ×6 (02:12→22:53)
[2019-07-12] MEDS: LEVOTHYROXINE SODIUM 88 MCG TABLET PO SCH (05:23)
[2019-07-12] MEDS: methylPREDNISolone 60 MG in SYRINGE 0 ML IV SCH ×2 (05:23→17:29)
[2019-07-12 05:46] LABS: Hematocrit (blood only) 30.7 % (37-47); Hemoglobin 10.4 g/dL (12.0-16.0); Mean Corpuscular Hemoglobin 32.9 pg (25-34); Mean Corpuscular Hgb Conc 33.9 g/dL (32-36); Mean Corpuscular Volume 97.2 fL (80-100); Mean Platelet Volume 9.4 fL (7.4-10.4); Platelet Count 164 K/uL (130-400); RDW Coefficient of Variation 15.8 % (11.5-14.5); RDW Standard Deviation 55.9 fL (36.4-46.3); Red Blood Count 3.16 M/uL (4.2-5.4); White Blood Count 3.72 K/uL (4.8-10.8)
[2019-07-12 06:15] LABS: BUN Creatinine Ratio 11.7 (10-20); Calcium 8.1 mg/dl (8.5-10.1); Creatinine Clr Calc Pharmacy 12.9 ml/min; Est GFR (African American) 23.8; Est GFR (Non-African American) 20.5; Potassium 4.6 mmol/L (3.5-5.1)
[2019-07-12] MEDS ORDERED: ERGOCALCIFEROL 50,000 UNITS CAP PO SCH (09:00)
[2019-07-12] MEDS: POTASSIUM CHLORIDE 20 MEQ TABCR PO SCH ×2 (09:53→21:05)
[2019-07-12] MEDS: HEPARIN SOD 5,000 UNIT/0.5 ML VIAL SQ SCH ×2 (09:53→21:05)
[2019-07-12] MEDS: ACETAMINOPHEN 325 MG TAB PO PRN ×2 (09:53→13:59)
[2019-07-12] MEDS: ESCITALOPRAM OXALATE 10 MG TAB PO SCH (09:54)
[2019-07-12] MEDS: HydrALAZINE TAB 50 MG TAB PO SCH ×3 (09:54→21:04)
[2019-07-12] MEDS: COLESTIPOL HCL 5 GM POWDER PACK PO SCH (09:55)
[2019-07-12] MEDS: PIPERACILLIN/TAZOBACTAM 3.375 GM in DEXTROSE 5% 100 ML IV SCH ×2 (11:38→21:18)
[2019-07-12] MEDS: ASPIRIN 81 MG ECTAB PO SCH (11:49)
[2019-07-12] MEDS: CARVEDILOL 6.25 MG TAB PO SCH ×2 (11:49→17:29)
[2019-07-12] MEDS: TRAMADOL HCL 50 MG TABLET PO PRN (15:12)
[2019-07-12 16:02] LABS: BUN Creatinine Ratio 12.5 (10-20); Calcium 7.9 mg/dl (8.5-10.1); Est GFR (African American) 21.7; Est GFR (Non-African American) 18.7; Potassium 5.2 mmol/L (3.5-5.1)
[2019-07-12] MEDS ORDERED: SODIUM CHLORIDE 0.9% 1000ML 1,000 ML IV SCH (17:30)
[2019-07-12 18:33] LABS: Appearance Urine Cloudy (Clear); Bacteria Urine Automated Negative (Negative); Bilirubin Urine Negative (Negative); Blood Urine 2+ (Negative); Color Urine Yellow; Epithelial Cell Urine Auto >30 /lpf (0-5); Glucose Urine UA Negative (Negative); Ketones Urine Negative (Negative); Leukocyte Esterase Urine Trace (Negative); Nitrite Urine Negative (Negative); Protein Urine 3+ (Negative); RBC Urine Automated >30 /hpf (0-4); Specific Gravity Urine 1.021 (1.000-1.030); Urobilinogen Urine Negative (Negative)
--- NOTE | 2019-07-12 21:03 | Hospitalist Progress Note ---
Date of Service July 12, 2019 Assessment & Plan (1) Pneumonia: LLL. Will Rx for nosocomial pneumonia as she was hospitalized a little over 1 month ago. Rx for gram negatives with zosyn for now. MRSA swab neg; defer on MRSA coverage at this time. Follow blood cx's - thus far neg. (2) Acute kidney injury: likely ATN given granular casts on u/a today; received IV diuretic yesterday - likely had decreased renal perfusion from such. does not appear volume overloaded today. Urine Na <10 c/w solute depletion. start NS at 60cc/hr; repeat BMP tonight and in am. (3) Chronic kidney disease, stage IV (severe): Baseline creat 1.6-2. Now with superimposed GITA - likely ATN given the granular casts on u/a today. BMP tonight and then again in am. (4) Elevated troponin: Troponin 0.082 with some T wave inversions on EKG in lateral leads Likely myocardial demand ischemia in setting of severe COPD / pneumonia but cannot r/o underlying CAD agree w/ asa however cont BB (5) COPD (chronic obstructive pulmonary disease): with probable exacerbation cont IV solumedrol - no wean today Continue home inhalers Cont scheduled Duonebs pulmonary toilet (6) Hypertension: Recent hospitalization for hypertensive urgency Blood pressures elevated here and at home Continue home carvedilol, hydralazine - adjust as needed (7) Hyponatremia: chronic - baseline low 130s now with acute worsening urine Na <10 c/w salt depletion pt looks volume contracted today - I don't see hypervolemia on exam no diuretics start gentle fluids at 60cc/hr BMP tonight and in am if any worsening - consult nephrology (8) Depression: cont lexapro cont trazodone (9) Severe protein-calorie malnutrition: ongoing for months extensive w/u - pang-CTs, HIDA scan, etc -- nondiagnostic due to severe, end-stage COPD? depression? combination of factors? underlying, occult malignancy? (10) Chronic respiratory failure with hypoxia: stable on home O2 amount (11) Hypothyroidism: TSH last few months wnl cont synthroid (12) DVT prophylaxis: heparin SC Subjective patient cont with dyspnea even at rest. minimal cough. no sputum. tele stable overnight. daughter/son both at bedside. they report that since her previous hospitalization she cont with failure to thrive, anorexia, etc. BPs at home still high but more smooth with less spikes but still has high readings about 1/2 the time. Review of Systems Constitutional: + fatigue and + anorexia; no fever Respiratory: no hemoptysis and no wheezing Cardiovascular: no chest pain Gastrointestinal: no abdominal pain, no nausea and no vomiting Physical Exam Constitutional: + acute distress (pursed lip breathing at times; tachypnea at times) and + cachectic; + not well developed, + not well nourished and no altered mental status ENMT: Mouth: + dry oral mucous membranes Respiratory: + uses accessory muscles Auscultation: + diminished lung sounds (severe - all lung segments but especially bases) Cardiovascular: Rate/Rhythm: regular rate and regular rhythm Heart Sounds: normal S1 and normal S2 Vessels: posterior tibial pulses present and dorsalis pedis pulses present; no JVD Extremities: + edema (trace - ankles only) Gastrointestinal (Abdomen): normal bowel sounds, soft, nontender, no hepatosplenomegaly Psychiatric: Orientation: alert and oriented x 3 Affect: + flat affect Results & Data Vital Signs (Past 12 Hours) Vital Signs Temp Pulse Pulse Resp BP Pulse Ox 07/12/19 20:18 36.7 C 86 19 156/87 H 100 07/12/19 19:01 78 18 100 07/12/19 15:24 36.6 C 76 17 138/62 100 07/12/19 15:21 75 20 100 07/12/19 11:53 36.9 C 88 20 145/68 H 95 07/12/19 11:03 71 18 96 Laboratory Results Laboratory Results - last 24 hr 07/11/19 07/12/19 07/12/19 22:34 05:23 05:23 WBC 3.72 L RBC 3.16 L Hgb 10.4 L Hct 30.7 L MCV 97.2 MCH 32.9 MCHC 33.9 RDW Std Deviation 55.9 H RDW Coeff of Umberto 15.8 H Plt Count 164 MPV 9.4 Sodium 128 L Potassium 4.6 Chloride 90 L Carbon Dioxide 32 Anion Gap 6.0 BUN 26 H Creatinine 2.20 H D Est Cr Clr Drug Dosing 12.9 Est GFR ( Amer) 23.8 Est GFR (Non-Af Amer) 20.5 BUN/Creatinine Ratio 11.7 Glucose 112 H Osmolality Calcium 8.1 L Troponin I 0.080 H* Urine Color Urine Appearance Urine pH Ur Specific Perry Urine Protein Urine Glucose (UA) Urine Ketones Urine Blood Urine Nitrite Urine Bilirubin Urine Urobilinogen Ur Leukocyte Esterase Urine WBC (Auto) Urine RBC (Auto) U Hyaline Cast (Auto) U Epithel Cells (Auto) Urine Bacteria (Auto) Ur Renal Epithelial Cell Urine Crystals Granular Casts Urine Osmolality Ur Random Sodium 07/12/19 07/12/19 07/12/19 15:13 15:13 15:25 WBC RBC Hgb Hct MCV MCH MCHC RDW Std Deviation RDW Coeff of Umberto Plt Count MPV Sodium 125 L Potassium 5.2 H Chloride 87 L Carbon Dioxide 29 Anion Gap 9.0 BUN 30 H Creatinine 2.37 H Est Cr Clr Drug Dosing 12.0 Est GFR ( Amer) 21.7 Est GFR (Non-Af Amer) 18.7 BUN/Creatinine Ratio 12.5 Glucose 119 H Osmolality 268 L Calcium 7.9 L Troponin I Urine Color Urine Appearance Urine pH Ur Specific Perry Urine Protein Urine Glucose (UA) Urine Ketones Urine Blood Urine Nitrite Urine Bilirubin Urine Urobilinogen Ur Leukocyte Esterase Urine WBC (Auto) Urine RBC (Auto) U Hyaline Cast (Auto) U Epithel Cells (Auto) Urine Bacteria (Auto) Ur Renal Epithelial Cell Urine Crystals Granular Casts Urine Osmolality 320 L Ur Random Sodium 07/12/19 07/12/19 15:25 15:25 WBC RBC Hgb Hct MCV MCH MCHC RDW Std Deviation RDW Coeff of Umberto Plt Count MPV Sodium Potassium Chloride Carbon Dioxide Anion Gap BUN Creatinine Est Cr Clr Drug Dosing Est GFR ( Amer) Est GFR (Non-Af Amer) BUN/Creatinine Ratio Glucose Osmolality Calcium Troponin I Urine Color Yellow Urine Appearance Cloudy A Urine pH 5.0 Ur Specific Perry 1.021 Urine Protein 3+ H Urine Glucose (UA) Negative Urine Ketones Negative Urine Blood 2+ H Urine Nitrite Negative Urine Bilirubin Negative Urine Urobilinogen Negative Ur Leukocyte Esterase Trace H Urine WBC (Auto) 5-10 H Urine RBC (Auto) >30 H U Hyaline Cast (Auto) 1-5 U Epithel Cells (Auto) >30 H Urine Bacteria (Auto) Negative Ur Renal Epithelial Cell Not Reportable Urine Crystals Calcium Oxalate A Granular Casts 1-5 H Urine Osmolality Ur Random Sodium 7 PG Care Time/CCT Total # of Minutes Spent Total Time Spent with Patient: Total time spent is greater than 50% in coordination of care (as documented) at patient's floor/unit and/or counseling patient: (1) Pneumonia Laterality: left Lung location: lower lobe of lung Pneumonia type: due to unspecified organism Qualified Code(s): J18.1 - Lobar pneumonia, unspecified organism (2) COPD (chronic obstructive pulmonary disease) COPD type: unspecified COPD Qualified Code(s): J44.9 - Chronic obstructive pulmonary disease, unspecified (3) Hypertension Hypertension type: essential hypertension Qualified Code(s): I10 - Essential (primary) hypertension (4) Depression Depression Type: other depression Qualified Code(s): F32.89 - Other specified depressive episodes (5) Hypothyroidism Hypothyroidism type: acquired Qualified Code(s): E03.9 - Hypothyroidism, uns pecified
[2019-07-12] MEDS: TRAZODONE HCL 50 MG TAB PO SCH (21:04)
[2019-07-13] MEDS: TRAMADOL HCL 50 MG TABLET PO PRN ×2 (00:47→18:49)
[2019-07-13] MEDS: ALBUT/IPRATROP 3MG/0.5MG NEB 3 ML VIAL NEB SCH ×5 (02:31→18:58)
[2019-07-13] MEDS: ACETAMINOPHEN 325 MG TAB PO PRN (04:31)
[2019-07-13] MEDS: methylPREDNISolone 60 MG in SYRINGE 0 ML IV SCH ×2 (04:32→16:16)
[2019-07-13] MEDS: LEVOTHYROXINE SODIUM 88 MCG TABLET PO SCH (06:21)
[2019-07-13 06:32] LABS: Hematocrit (blood only) 28.1 % (37-47); Hemoglobin 9.7 g/dL (12.0-16.0); Mean Corpuscular Hemoglobin 33.9 pg (25-34); Mean Corpuscular Hgb Conc 34.5 g/dL (32-36); Mean Corpuscular Volume 98.3 fL (80-100); Mean Platelet Volume 9.2 fL (7.4-10.4); Platelet Count 152 K/uL (130-400); RDW Coefficient of Variation 16.3 % (11.5-14.5); RDW Standard Deviation 58.9 fL (36.4-46.3); Red Blood Count 2.86 M/uL (4.2-5.4); White Blood Count 6.55 K/uL (4.8-10.8)
[2019-07-13 06:58] LABS: Calcium 7.7 mg/dl (8.5-10.1); Creatinine Clr Calc Pharmacy 13.2 ml/min; Est GFR (African American) 22.2; Est GFR (Non-African American) 19.1; Potassium 5.7 mmol/L (3.5-5.1)
--- NOTE | 2019-07-13 07:32 | XRay Report ---
XR chest 1V portable CLINICAL HISTORY: Chest pain. COMPARISON STUDY: Chest CT June 04, 2019. Chest radiograph July 11, 2019. FINDINGS: Emphysema is noted. There is right apical scarring. Small bilateral pleural effusions and b ibasilar opacities persist. Pulmonary edema is noted. There are right axillary/chest wall surgical cl ips. Endovascular aortic stent graft is partially imaged. Calcified mediastinal lymph nodes are noted . IMPRESSION: 1. Mild pulmonary edema. 2. Small bilateral pleural effusions with bibasilar opacities which may reflect atelectasis or consol idation. 3. Emphysema. Electronically signed by: Syed Alejandre M.D. 07/13/2019 7:31 AM
[2019-07-13] MEDS ORDERED: SODIUM POLYSTYRENE SULFONATE 15G/60ML SUSP PO STA (07:39)
[2019-07-13] MEDS: ASPIRIN 81 MG ECTAB PO SCH (08:04)
[2019-07-13] MEDS: ESCITALOPRAM OXALATE 10 MG TAB PO SCH (08:04)
[2019-07-13] MEDS: CARVEDILOL 6.25 MG TAB PO SCH ×2 (08:04→16:16)
[2019-07-13] MEDS: HEPARIN SOD 5,000 UNIT/0.5 ML VIAL SQ SCH ×2 (08:04→20:47)
[2019-07-13] MEDS: HydrALAZINE TAB 50 MG TAB PO SCH ×4 (08:04→20:45)
[2019-07-13] MEDS: PIPERACILLIN/TAZOBACTAM 3.375 GM in DEXTROSE 5% 100 ML IV SCH ×2 (09:56→20:53)
[2019-07-13] MEDS: COLESTIPOL HCL 5 GM POWDER PACK PO SCH (09:56)
[2019-07-13 12:04] LABS: Base Excess VBG 3.3 mEq/L; Oxygen Saturation VBG 76.9 %; pH VBG 7.4 (7.36-7.41)
[2019-07-13 12:45] LABS: BUN Creatinine Ratio 14.7 (10-20); Calcium 8.2 mg/dl (8.5-10.1); Creatinine Clr Calc Pharmacy 13.3 ml/min; Est GFR (African American) 22.4; Est GFR (Non-African American) 19.3; Potassium 5.3 mmol/L (3.5-5.1)
[2019-07-13] MEDS: NITROGLYCERIN 2% OINTMENT 30GM TUBE EXT SCH ×2 (13:23→20:44)
--- NOTE | 2019-07-13 16:50 | Ultrasound Report ---
US venous doppler LE BI HISTORY: Pain. Edema. resp failure; h/o VTE; eval DVT COMPARISON STUDY: None. FINDINGS: There is normal compressibility, flow, and augmentation within the bilateral lower extremit y deep venous systems. IMPRESSION: No DVT within the right or left lower extremity. 3.5 cm left popliteal cyst. The above report was generated using voice recognition software. It may contain grammatical, syntax or spelling errors. Electronically signed by: Gary Santiago M.D. 07/13/2019 4:49 PM
--- NOTE | 2019-07-13 18:40 | Nephrology Consultation ---
Date of Consultation July 13, 2019 Assessment & Plan (1) Acute kidney injury: Patient has acute on chronic renal insufficiency. She is nonoliguric. Her metabolic profile is otherwise notable for hypo natremia and hyperkalemia. She is receiving Solu-Medrol. Blood pressure has been accelerated. Clinical presentation not consistent with adrenal insufficiency. I suspect her hyponatremia is related to poor solute intake and renal dysfunction. Hyperkalemia likewise is related to kidney dysfunction as well as potassium supplements. Oral KCl has been discontinued. Clinical exam does not suggest significant volume overload. She does have evidence of notable right heart failure. I suspect this is related to underlying pulmonary hypertension. Ultimately she may benefit from additional diuretic therapy but this has been deferred at this time. Her renal dysfunction is advanced in tenuous. She is notable renal vascular disease. We have discussed this in detail in the past. There is no emergent indication for dialysis. Given her current condition, I would not expect patient be able to tolerate hemodialysis. [place] primary goal care at this time is to stabilize the breathing and improve her oxygenation. Chest x-ray reveals reviewed there certainly is evidence of left lower lobe infiltrate as well as some ground-glass opacities. CT may better help delineate these findings noted patient has been maintained on antibiotic therapy. Clinical presentation may be consistent with pneumonia superimposed on chronic lung disease. Certainly we have to maintain high degree of suspicion for underlying malignancy given the patient's recent history of progressive weight loss weakness and other constitutional symptoms. It is notable that during her recent admission she had a CT scan that was concerning for possible thickening along the esophagus and stomach. I had a long conversation with Annabelle and her son in her hospital room this afternoon. We reviewed her recent medical history. I discussed the plan of care with Dr. Us. At this time no adjustments medications were made. We will provide close clinical monitoring. Input and output has been documented. I will repeat a metabolic profile tomorrow morning. (2) Hyponatremia: (3) Chronic kidney disease, stage IV (severe): (4) Pulmonary hypertension: History of Present Illness Reason for Consultation: Acute on chronic renal insufficiency Requesting Physician: Joseph Us Attending Physician: Joseph Us History of Present Illness Mrs. Guerra is a frail and chronically ill 78-year-old female who I have followed in the nephrology clinic regarding a history of CKD, renovascular disease, accelerated hypertension,and GITA. The patient lives at home with her daughter. She was initially evaluated in the Nephrology Clinic at [facility] in April. She previously followed with Dr. Musa in [place] ([facility]). Prior evaluation was notable for renal artery stenosis. She underwent additional vascular surgery evaluation by Dr. Madden locally. 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 The left kidney demonstrated a patent artery. Dr. Madden expressed that there were no surgical options available for management. Medical history is notable for significant history of tobacco abuse, hypothyroidism, COPD chronic O2 dependent, OA/DJD, osteoporosis, history of endovascular AAA repair in 2007, and hypertension. Patient was admitted to [facility] on July 11 with respiratory distress. She has had increasing hypoxia since that time. Chest x- ray demonstrated left lower lobe infiltrate. The patient has been started on Zosyn for pneumonia. She was admitted to [facility] with symptomatic accelerated hypertension in June 2019. Creatinine had been elevated at 2.6 mg/dL associated with multiple electrolyte abnormalities including hypokalemia with a potassium of 2.7 mmol/L. Creatinine has improved to baseline chronic kidney disease class IV post discharge. I saw Eva in the nephrology clinic at the end of June post discharge. Kidney dysfunction includes nephrotic range proteinuria with a random PCR of 6.9. Baseline creatinine had been approximately 1.6-2.0. Metabolic profile had otherwise been included chronic hypokalemia managed with a daily potassium supplement. She does not take diuretics routinely. She avoids NSAIDs. Her medical history is notable for advanced COPD, vascular disease, hypertension, osteoporosis. Her clinical presentation has been is consistent with advanced CKD and significant YURIY. High risk for progression of CKD has been addressed as an outpatient. She completed pre-dialysis TOPS education through [facility]. She has not been adverse to hemodialysis treatment, if medically necessary. Eva was admitted to [facility] from June 04 through with accelerated hypertension with hypertensive urgency. She was treated with hydralazine and nitropaste. Blood pressure was controlled subsequently with ca rvedilol and hydralazine. CT of the head, chest, abdomen and pelvis was obtained. No specific abnormal pathology was identified. There noted concerning thickening in the distal esophageal and gastric area warranting suggested GI follow-up. The patient is scheduled to see Dr. Bruno as an outpatient for EGD. MRI of the head confirmed notable calcific vascular disease without acute findings or evidence of CVA. I received a call from Mrs. Guerra's son at the end of May. The patient developed what she describes as a nervous breakdown on May 27. She was evaluated in the acute care clinic by Dr. Bauer at that time. Mrs. Guerra was experiencing audio and visual hallucinations. She denies chest pain, headaches, or palpitations. She describes hearing a symphony playing continuously as well as seeing people appearing and disappearing in her peripheral vision. Symptoms resolved within 24 hours. Mrs. Guerra had similar symptoms in the past associated with a urinary tract infection. Urine studies however were not consistent with a UTI. Blood work did reveal acute on chronic renal insufficiency as well as notable hypokalemia. Blood pressure was found to be notably accelerated on presentation. Mrs. Guerra also notes that her appetite had been very poor. Her daughter confirms that oral intake remains poor and expressed concern regarding continued weight loss. Overall, there has been continued significant decline in health over the past year. Dr. Bauer provided 2 doses of clonidine in the acute care clinic. Mrs. Guerra left the clinic with a prescription for spironolactone but never started the medication. The following day (May 28) a nurses visit was provided in the nephrology clinic. At this time, Mrs. Guerra was experiencing significant lightheadedness and fati félix. Blood pressure was found to be 100/70 mmHg. She was told to stop spironolactone and to start oral KCl 20 mEq twice daily. Blood pressure had been controlled with amlodipine 10 milligrams daily in the past. The patient developed lower extremity edema associated with the medication. She has not had at regular use of a diuretic. She was switched to hydralazine and edema improved. Carvedilol was subsequently added. She is maintained on Fosamax for osteoporosis. Allergies Allergy/AdvReac Type Severity Reaction Status Date / Time morphine Allergy Severe Hypotension Verified 07/11/19 13:17 Gpcanzt-Xbd-Syh Reductase Allergy Severe Unknown Verified 07/11/19 13:17 Inhibitor Home Medications Home Medications Medication Instructions Recorded Confirmed Type Bevespi Aerosphere 2 puff INHALATION BID 03/10/19 07/11/19 History levothyroxine 88 mcg PO QAM 03/10/19 07/11/19 History ranitidine HCl [Zantac] 150 mg PO DAILY PRN 03/10/19 07/11/19 History alendronate 70 mg PO WK 03/27/19 07/11/19 History ipratropium-albuterol 3 ml INHALATION QID 03/27/19 07/11/19 History cetirizine [Zyrtec] 10 mg PO DAILY PRN 06/04/19 07/11/19 History colestipol 5 g PO DAILY 06/04/19 07/11/19 History ergocalciferol (vitamin D2) 50,000 unit PO WK 06/04/19 07/11/19 History [Vitamin D2] nicotine (polacrilex) [Nicorette] 2 mg BUCCAL Q3H PRN 06/04/19 07/11/19 History potassium chloride 20 meq PO BID 06/04/19 07/11/19 History trazodone 50 mg PO HS 06/04/19 07/11/19 History carvedilol 6.25 mg PO BID #60 tab 06/07/19 07/11/19 Rx escitalopram oxalate 10 mg PO QAM #30 tab 06/07/19 07/11/19 Rx tramadol 50 mg PO TID PRN #20 tab 06/07/19 07/11/19 Rx hydralazine 50 mg tablet 50 mg PO TID #90 tab 06/17/19 07/11/19 Rx Patient History Medical History Chronic kidney disease, stage IV (severe) Depression (Chronic) Headache (Chronic) COPD (chronic obstructive pulmonary disease) (Chronic) Hypothyroidism (Chronic) Renal artery stenosis (Chronic) History of hysterectomy Hypertension (Chronic) Dyslipidemia (Chronic) Breast cancer (Resolved) Pulmonary embolism (Resolved) Surgical History H/O mastectomy H/O abdominal aortic aneurysm repair History of right hip replacement Family History Father Myocardial infarction Social History Preferred Language: Amharic Communication Ability: Effective 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: No Beliefs That Will Affect Care: None Current Living Situation: Family Current Living Situation Comment: Lives with daughter Other Information That Helps Us Care for You: No Feels Safe at Home: Yes Safety Concerns: Feels Safe At This Time Smoking Status: Former smoker Tobacco Type: cigarettes ; Cigarettes Per Day: 20 ; Second Hand Exposure: No ; Hx Alcohol Use: No Hx Substance Use: No Review of Systems Constitutional: + fatigue, + weakness, + anorexia and + weight loss; no fever, no chills and no sweats Eyes: no problem reported Ear, Nose, Mouth, Throat: + dry mouth and + sore throat; no dysphagia Respiratory: + dyspnea and + pain on inspiration; no cough Cardiovascular: + chest pain; no palpitations and no edema Gastrointestinal: + abdominal pain and + constipation; no nausea Genitourinary: no dysuria and no hematuria Musculoskeletal: + stiffness and + muscle atrophy Integumentary: no rash and no lesions Neurologic: + unsteadiness, + falls, + dizziness and + headache(s); no confusion Psychiatric: + depression and + anxiety Physical Exam Constitutional: + acute distress, + ill appearing, + thin and + frail appearing Eyes: no scleral abnormality and no corneal abnormality ENMT: Mouth: + dry oral mucous membranes; no oral mucosal abnormality Neck: normal visual inspection and trachea midline Respiratory: + respiratory distress; no cough Auscultation: + rales; no rhonchi and no wheezes Cardiovascular: Heart Sounds: normal S1, normal S2 and + murmur Vessels: + JVD Extremities: no edema Gastrointestinal (Abdomen): Percussion/Palpation: abdomen soft; abdomen nontender Musculoskeletal: Extremities: + muscle atrophy and + cyanosis; no clubbing Skin: + turgor decreased; no rashes Neurologic: Motor/Sensory: no tremor and no asterixis Results & Data Vital Signs (Past 12 Hours) Vital Signs Temp Pulse Pulse Resp BP Pulse Ox 07/13/19 15:29 36.4 C L 91 H 26 H 180/110 H 93 07/13/19 15:01 96 H 24 99 07/13/19 13:19 92 H 24 90 07/13/19 11:17 36.6 C 93 H 28 H 175/94 H 92 07/13/19 11:00 91 H 18 92 07/13/19 07:07 86 18 93 Laboratory Results Laboratory Results - last 24 hr 07/12/19 07/13/19 07/13/19 15:25 06:18 06:18 WBC 6.55 RBC 2.86 L Hgb 9.7 L Hct 28.1 L MCV 98.3 MCH 33.9 MCHC 34.5 RDW Std Deviation 58.9 H RDW Coeff of Umberto 16.3 H Plt Count 152 MPV 9.2 VBG pH VBG pCO2 VBG pO2 VBG HCO3 VBG O2 Saturation VBG Base Excess Barometric Pressure Sodium 126 L Potassium 5.7 H Chloride 89 L Carbon Dioxide 30 Anion Gap 7.0 BUN 33 H Creatinine 2.33 H Est Cr Clr Drug Dosing 13.2 Est GFR ( Amer) 22.2 Est GFR (Non-Af Amer) 19.1 BUN/Creatinine Ratio 14.0 Glucose 101 H Calcium 7.7 L Troponin I Urine WBC (Auto) 5-10 H Urine RBC (Auto) >30 H U Hyaline Cast (Auto) 1-5 U Epithel Cells (Auto) >30 H Urine Bacteria (Auto) Negative Ur Renal Epithelial Cell Not Reportable Urine Crystals Calcium Oxalate A Granular Casts 1-5 H 07/13/19 07/13/19 07/13/19 11:54 11:54 13:17 WBC RBC Hgb Hct MCV MCH MCHC RDW Std Deviation RDW Coeff of Umberto Plt Count MPV VBG pH 7.40 VBG pCO2 47 VBG pO2 43 VBG HCO3 29 VBG O2 Saturation 76.9 VBG Base Excess 3.3 Barometric Pressure 739.0 Sodium 126 L Potassium 5.3 H Chloride 90 L Carbon Dioxide 28 Anion Gap 8.0 BUN 34 H Creatinine 2.31 H Est Cr Clr Drug Dosing 13.3 Est GFR ( Amer) 22.4 Est GFR (Non-Af Amer) 19.3 BUN/Creatinine Ratio 14.7 Glucose 118 H Calcium 8.2 L Troponin I 0.059 H* Urine WBC (Auto) Urine RBC (Auto) U Hyaline Cast (Auto) U Epithel Cells (Auto) Urine Bacteria (Auto) Ur Renal Epithelial Cell Urine Crystals Granular Casts PG Care Time/CCT Total # of Minutes Spent Total Time Spent with Patient: Total time spent is greater than 50% in coordination of care (as documented) at patient's floor/unit and/or counseling patient:
[2019-07-13] MEDS: TRAZODONE HCL 50 MG TAB PO SCH (20:45)
--- NOTE | 2019-07-13 21:16 | Hospitalist Progress Note ---
Date of Service July 13, 2019 Assessment & Plan (1) Acute and chronic respiratory failure with hypoxia: Patient markedly worse today. We escalated her respiratory support to high-flow NC. Fortunately she is ventilating with normal pH and pCO2 on VBG this afternoon. The acute resp failure is likely multifactorial - COPD exacerbation, LLL pneumonia -- all in context of end-stage COPD and severe pulmonary HTN. There was concern of decompensated CHF at time of hospital presentation. She received IV lasix 40mg and by the next morning her creatinine promptly naheed to >2. Thus, I am uncertain how much CHF is playing a role. She also has h/o VTE several years ago. With her worsening hypoxia and chest pain I cannot rule out PEs. Unfortunately she is too ill for v/q scan. CTA is not possible due to ARF. I obtained venous duplex studies of her legs today -- these were negative for DVT but ideally we need dedicated chest imaging. If she worsens any more consider empiric heparin infusion until PEs could be formally ruled out. Consider repeat echo, cardiology and/or pulmonary consultations. Appreciate nephrology consultation. (2) Chest pain: Despite the frequent episodes of chest discomfort her troponin is only modestly elevated. Her EKGs have shown nonspecific ST changes. I did apply nitropaste today to treat her pain (if ischemic) and for improved BP control. Could consider repeat echo. Pain could be from PEs, esophageal, or the severe COPD exacerbation itself. Cont to monitor. (3) Pneumonia: LLL. Will Rx for nosocomial pneumonia as she was hospitalized a little over 1 month ago. Rx for gram negatives with zosyn for now. MRSA swab neg; defer on MRSA coverage at this time. Blood cx's cont to be neg. (4) Acute kidney injury: concern for ATN in setting of CKD stage 4. Urine Na <10 c/w solute depletion. s/p 500cc of NS fluid overnight -- creatinine has plateaued. Hyperkalemia improved. additional fluid and diuretics on hold. consulted Dr Murphy from nephrology for assistance with her GITA, CKD, low Na, etc. Appreciate his consultation. BMP am. (5) Chronic kidney disease, stage IV (severe): Baseline creat 1.6-2. Now with superimposed GITA - likely ATN given the granular casts, etc. BMP in am. Nephrology consult appreciated. (6) Elevated troponin: Troponins continue to be modestly elevated although they have trended downward even despite her c/o chest pain. Likely myocardial demand ischemia in setting of severe COPD / pneumonia but cannot r/o underlying CAD. cont asa cont BB consider repeat echo (7) COPD (chronic obstructive pulmonary disease): with exacerbation cont IV solumedrol - no wean today - she is receiving nearly 3mg/kg daily of steroids Continue home inhalers Cont scheduled Duonebs pulmonary toilet high-flow NC escalate to BIPAP if any worsening she remains full code (8) Hypertension: Recent hospitalization for hypertensive urgency Blood pressures cont to be elevated Continue home carvedilol, hydralazine add topical nitrates (9) Hyponatremia: chronic - baseline low 130s now with acute worsening urine Na <10 c/w salt depletion serum Na is mid 120s - largely unchanged from yesterday appreciate nephrology consult BMP am (10) Depression: cont lexapro cont trazodone (11) Severe protein-calorie malnutrition: ongoing for months extensive w/u - pang-CTs, HIDA scan, etc -- nondiagnostic due to severe, end-stage COPD? depression? combination of factors? underlying, occult malignancy? (12) Hypothyroidism: TSH last few months wnl cont synthroid (13) Hyperkalemia: 2nd to GITA kayexalate 15gm po x 1 repeat BMP later today showed improved K level holding K supplements recheck BMP am (14) DVT prophylaxis: heparin SC low threshold for systemic heparin infusion if high suspicion for PEs total time spent over 3 separate visits to patient's room today - about 80 minutes plan of care discussed heavily with pt's son and daughter signed out plan of care with surgical instrument repair specialist team pt's status is tenuous Subjective multiple visits to pt's bedside today due to worsening respiratory status. first visit was this am; son was at bedside. patient states she had a rough night with dyspnea. she asks if we can "turn up the oxygen" to help her breathing. she has had to sit up to have more comfort with her breathing. she is anxious. she has also had chest discomfort/upper abdominal discomfort starting this am about 0600. it has been continuous since 0600. has very little appetite. after this first visit we changed her NC O2 to high-flow NC. EKG was also obtained -- it was unchanged from the AM EKG. during my 2nd visit to the bedside her upper abdominal discomfort had improved but she was now having right-sided chest pain. she reported PEs several years ago while living in [place]. 3rd visit was late in the day. son and daughter were both at bedside. we discussed code status. at this point patient would want intubation with CPR and all full code measures. daughter stated they had talked about end of life wishes in the past and she confirmed her mother had stated consistently she would want all measures taken including hemodialysis. with the above said she apparently disliked the BIPAP that was used in the ER a few nights ago for her resp failure. Review of Systems Constitutional: + fatigue and + anorexia; no fever and no chills Respiratory: + cough and + dyspnea; no hemoptysis and no wheezing Cardiovascular: as per Subjective / HPI, + chest pain and + orthopnea; no radiating jaw, neck or arm pain Gastrointestinal: + abdominal pain; no nausea Psychiatric: + anxiety Physical Exam Constitutional: + acute distress (pursed lip breathing; tachypnea; retractions; looks worse today) and + cachectic; + not well developed, + not well nourished, no altered mental status and + uncomfortable ENMT: Mouth: + dry oral mucous membranes Respiratory: + respiratory distress, + labored breathing and + uses accessory muscles Auscultation: + diminished lung sounds (severe - all lung segments ) Cardiovascular: Rate/Rhythm: regular rate and regular rhythm Heart Sounds: normal S1, normal S2 and + murmur (2/6 LSB) Vessels: posterior tibial pulses present and dorsalis pedis pulses present; no JVD Extremities: + edema (trace - ankles only) Gastrointestinal (Abdomen): normal bowel sounds, soft, nontender, no hepatosplenomegaly Psychiatric: Orientation: alert and oriented x 3 Affect: + flat affect Results & Data Vital Signs (Past 12 Hours) Vital Signs Temp Pulse Pulse Resp BP Pulse Ox 07/13/19 19:01 22 95 07/13/19 18:43 36.6 C 94 H 30 H 168/102 H 90 07/13/19 15:29 36.4 C L 91 H 26 H 180/110 H 93 07/13/19 15:01 96 H 24 99 07/13/19 13:19 92 H 24 90 07/13/19 11:17 36.6 C 93 H 28 H 175/94 H 92 07/13/19 11:00 91 H 18 92 Laboratory Results Laboratory Results - last 24 hr 07/13/19 07/13/19 07/13/19 06:18 06:18 11:54 WBC 6.55 RBC 2.86 L Hgb 9.7 L Hct 28.1 L MCV 98.3 MCH 33.9 MCHC 34.5 RDW Std Deviation 58.9 H RDW Coeff of Umberto 16.3 H Plt Count 152 MPV 9.2 VBG pH VBG pCO2 VBG pO2 VBG HCO3 VBG O2 Saturation VBG Base Excess Barometric Pressure Sodium 126 L 126 L Potassium 5.7 H 5.3 H Chloride 89 L 90 L Carbon Dioxide 30 28 Anion Gap 7.0 8.0 BUN 33 H 34 H Creatinine 2.33 H 2.31 H Est Cr Clr Drug Dosing 13.2 13.3 Est GFR ( Amer) 22.2 22.4 Est GFR (Non-Af Amer) 19.1 19.3 BUN/Creatinine Ratio 14.0 14.7 Glucose 101 H 118 H Calcium 7.7 L 8.2 L Troponin I 07/13/19 07/13/19 11:54 13:17 WBC RBC Hgb Hct MCV MCH MCHC RDW Std Deviation RDW Coeff of Umberto Plt Count MPV VBG pH 7.40 VBG pCO2 47 VBG pO2 43 VBG HCO3 29 VBG O2 Saturation 76.9 VBG Base Excess 3.3 Barometric Pressure 739.0 Sodium Potassium Chloride Carbon Dioxide Anion Gap BUN Creatinine Est Cr Clr Drug Dosing Est GFR ( Amer) Est GFR (Non-Af Amer) BUN/Creatinine Ratio Glucose Calcium Troponin I 0.059 H* Diagnostic Findings cxr - IMPRESSION: 1. Mild pulmonary edema. 2. Small bilateral pleural effusions with bibasilar opacities which may reflect atelectasis or consolidation. 3. Emphysema. ekg - NSR, NS ST changes V5 and V6 PG Care Time/CCT Total # of Minutes Spent Total Time Spent with Patient: Total time spent is greater than 50% in coordination of care (as documented) at patient's floor/unit and/or counseling patient: (1) Pneumonia Laterality: left Lung location: lower lobe of lung Pneumonia type: due to unspecified organism Qualified Code(s): J18.1 - Lobar pneumonia, unspecified organism (2) COPD (chronic obstructive pulmonary disease) COPD type: unspecified COPD Qualified Code(s): J44.9 - Chronic obstructive pulmonary disease, unspecified (3) Hypertension Hypertension type: essential hypertension Qualified Code(s): I10 - Essential (primary) hypertension (4) Depression Depression Type: other depression Qualified Code(s): F32.89 - Other specified depressive episodes (5) Hypothyroidism Hypothyroidism type: acquired Qualified Code(s): E03.9 - Hypothyroidism, unspecified (6) Chest pain Chest pain type: unspecified Qualified Code(s): R07.9 - Chest pain, unspecified
[2019-07-14] MEDS: ALBUT/IPRATROP 3MG/0.5MG NEB 3 ML VIAL NEB SCH ×7 (01:59→23:13)
[2019-07-14] MEDS: NITROGLYCERIN 2% OINTMENT 30GM TUBE EXT SCH ×4 (03:40→20:46)
[2019-07-14] MEDS: methylPREDNISolone 60 MG in SYRINGE 0 ML IV SCH ×2 (04:48→16:32)
[2019-07-14] MEDS: LEVOTHYROXINE SODIUM 88 MCG TABLET PO SCH (05:33)
[2019-07-14] MEDS: TRAMADOL HCL 50 MG TABLET PO PRN (05:33)
[2019-07-14] MEDS: ACETAMINOPHEN 325 MG TAB PO PRN (07:36)
[2019-07-14] MEDS: CARVEDILOL 6.25 MG TAB PO SCH ×2 (07:36→16:32)
[2019-07-14] MEDS: HydrALAZINE TAB 50 MG TAB PO SCH ×3 (07:36→20:42)
[2019-07-14] MEDS: ASPIRIN 81 MG ECTAB PO SCH (07:37)
[2019-07-14] MEDS: ESCITALOPRAM OXALATE 10 MG TAB PO SCH (07:38)
[2019-07-14] MEDS: HEPARIN SOD 5,000 UNIT/0.5 ML VIAL SQ SCH (07:38)
[2019-07-14 07:49] LABS: Hematocrit (blood only) 31.1 % (37-47); Hemoglobin 10.6 g/dL (12.0-16.0); Mean Corpuscular Hemoglobin 33.3 pg (25-34); Mean Corpuscular Hgb Conc 34.1 g/dL (32-36); Mean Corpuscular Volume 97.8 fL (80-100); Mean Platelet Volume 9.3 fL (7.4-10.4); Platelet Count 188 K/uL (130-400); RDW Coefficient of Variation 16.4 % (11.5-14.5); RDW Standard Deviation 58.1 fL (36.4-46.3); Red Blood Count 3.18 M/uL (4.2-5.4)
[2019-07-14 08:19] LABS: D Dimer 7290 ug/L FEU (0-500)
[2019-07-14 08:24] LABS: BUN Creatinine Ratio 16.6 (10-20); Calcium 8.6 mg/dl (8.5-10.1); Creatinine Clr Calc Pharmacy 13.1 ml/min; Est GFR (African American) 21.9; Est GFR (Non-African American) 18.9; Potassium 4.7 mmol/L (3.5-5.1)
[2019-07-14] MEDS ORDERED: Heparin IV Standard *NO* Bolus IV ONE (08:33)
[2019-07-14] MEDS: HEPARIN SODIUM/DEXTROSE 25,000 UNITS/500 ML BAG IV SCH (09:23)
[2019-07-14] MEDS: PIPERACILLIN/TAZOBACTAM 3.375 GM in DEXTROSE 5% 100 ML IV SCH ×2 (10:42→21:58)
[2019-07-14] MEDS: COLESTIPOL HCL 5 GM POWDER PACK PO SCH (10:42)
[2019-07-14 15:38] LABS: Partial Thromboplastin Ratio 2.2
--- NOTE | 2019-07-14 15:40 | Nephrology Progress Note ---
Date of Service July 14, 2019 Assessment & Plan (1) Acute kidney injury: Acute on chronic renal insufficiency consistent with ATN. She is nonoliguric but intake and output are both reduced. Her metabolic profile is otherwise notable for hyponatremia. Hyperkalemia has improved. Blood pressure has also improved. I suspect her hyponatremia is related to poor solute intake and renal dysfunction. Hyperkalemia was likewise is related to kidney dysfunction as well as potassium supplements. Oral KCl has been discontinued. Clinical exam does not suggest significant volume overload. She does have evidence of notable right heart failure. Obligatory fluid intake is not significant and the patient takes very little PO. She is cachectic associated with her chronic medical conditions including advanced COPD. Ultimately I would suggest an even to slightly negative fluid balance. Her renal dysfunction is advanced and current condition guarded. 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 We have discussed this in detail in the past. She completed predialysis education and continues to insist that she would want hemodialysis if necessary. Eva has not put any limitations on her care. There is no emergent indication for dialysis at this time. I have discussed wi th her that given her baseline health and multiple comorbidities, I would anticipate difficulties tolerating hemodialysis. Hopefully we will see continued improvement with supportive care and treatment for pneumonia. I would have a low threshold to repeat CT once she is stable. At this time no adjustments medications were made. We will provide close clinical monitoring. Input and output will be documented. I will repeat a metabolic profile tomorrow morning. (2) Hyponatremia: (3) Chronic kidney disease, stage IV (severe): (4) Pulmonary hypertension: Subjective No acute events overnight. Patient was more comfortable this morning when I evaluated her. She reported some improvement in dyspnea. She denies significant chest pain at that time. She remains profoundly weak. Appetite is poor in oral intake minimal. She has been started on heparin drip and had not have any bleeding complications. Review of Systems Review of Systems: All systems reviewed & are unremarkable except as noted in HPI & below Physical Exam Constitutional: + ill appearing, + thin and + frail appearing; no acute distress Eyes: no scleral abnormality and no corneal abnormality ENMT: Mouth: + dry oral mucous membranes; no oral mucosal abnormality Neck: normal visual inspection and trachea midline Respiratory: no respiratory distress and no cough Auscultation: no rales, no rhonchi and no wheezes Cardiovascular: Heart Sounds: normal S1, normal S2 and + murmur Vessels: + JVD Extremities: no edema Gastrointestinal (Abdomen): Percussion/Palpation: abdomen soft; abdomen non tender Musculoskeletal: Extremities: + muscle atrophy and + cyanosis; no clubbing Skin: + turgor decreased; no rashes Neurologic: Motor/Sensory: no tremor and no asterixis Results & Data Vital Signs (Past 12 Hours) Vital Signs Temp Pulse Pulse Resp BP Pulse Ox 07/14/19 11:41 36.8 C 82 26 H 163/86 H 94 07/14/19 11:10 82 22 99 07/14/19 07:27 99 H 26 H 210/115 H 97 07/14/19 07:02 99 H 22 99 07/14/19 03:40 95 H 22 97 Laboratory Results Laboratory Results - last 24 hr 07/14/19 07/14/19 07/14/19 07:28 07:28 07:28 WBC 12.00 H RBC 3.18 L Hgb 10.6 L Hct 31.1 L MCV 97.8 MCH 33.3 MCHC 34.1 RDW Std Deviation 58.1 H RDW Coeff of Umberto 16.4 H Plt Count 188 MPV 9.3 APTT PTT Ratio D-Dimer 7290 H* Sodium 127 L Potassium 4.7 Chloride 89 L Carbon Dioxide 29 Anion Gap 8.0 BUN 39 H Creatinine 2.35 H Est Cr Clr Drug Dosing 13.1 Est GFR ( Amer) 21.9 Est GFR (Non-Af Amer) 18.9 BUN/Creatinine Ratio 16.6 Glucose 79 Calcium 8.6 07/14/19 14:58 WBC RBC Hgb Hct MCV MCH MCHC RDW Std Deviation RDW Coeff of Umberto Plt Count MPV APTT Pending PTT Ratio Pending D-Dimer Sodium Potassium Chloride Carbon Dioxide Anion Gap BUN Creatinine Est Cr Clr Drug Dosing Est GFR ( Amer) Est GFR (Non-Af Amer) BUN/Creatinine Ratio Glucose Calcium PG Care Time/CCT Total # of Minutes Spent Total Time Spent with Patient: Total time spent is greater than 50% in coordination of care (as documented) at patient's floor/unit and/or counseling patient:
[2019-07-14 15:41] LABS: Partial Thromboplastin Time 59.8 Seconds (21.0-31.0)
[2019-07-14 18:37] LABS: Albumin Level 2.5 gm/dl (3.4-5.0); BUN Creatinine Ratio 19.1 (10-20); Calcium 8.3 mg/dl (8.5-10.1); Creatinine Clr Calc Pharmacy 13.5 ml/min; Est GFR (African American) 22.8; Est GFR (Non-African American) 19.6; Potassium 4.5 mmol/L (3.5-5.1)
[2019-07-14 18:38] LABS: Phosphorus 5.8 mg/dl (2.5-4.9)
--- NOTE | 2019-07-14 20:21 | Hospitalist Progress Note ---
Date of Service July 14, 2019 Assessment & Plan (1) Acute and chronic respiratory failure with hypoxia: Likely multifactorial - COPD exacerbation, LLL pneumonia -- all in context of end-stage COPD and severe pulmonary HTN. There was concern of decompensated CHF at time of hospital presentation. She received IV lasix 40mg and by the next morning her creatinine promptly naheed to >2. Thus, I don't believe she has active, decompensated CHF at this time (laying flat in bed comfortably today argues against pulmonary edema of any significant degree). I cannot rule out PEs especially in light of prior VTE event several years ago and her markedly elevated d-dimer. Unfortunately cannot obtain CTA chest due to CKD and she is still too ill to obtain V/Q. Thus, will place on empiric heparin infusion to cover for possible PEs. Overall, however, I am pleased by how she looks today relative to yesterday; at least her distress is better. Cont high-flow NC and wean as tolerated. Consider repeat echo, cardiology and/or pulmonary consultations with any worsening status. Appreciate nephrology consultation. (2) D-dimer, elevated: see above start empiric heparin infusion v/q scan - perhaps tomorrow if stable from respiratory standpoint? (3) Chest pain: Despite the frequent episodes of chest discomfort this admission her troponin only naheed modestly. I am less suspicious this is anginal pain but cannot fully rule it out. Pain could be from PEs, esophageal, LLL pneumonia, or the severe COPD exacerbation itself. Cont to monitor. (4) Pneumonia: LLL. Will Rx for nosocomial pneumonia as she was hospitalized a little over 1 month ago. Rx for gram negatives with zosyn for now. MRSA swab neg; defer on MRSA coverage at this time. Blood cx's cont to be neg. day #3-4 / 7 of treatment. (5) Acute kidney injury: concern for ATN in setting of CKD stage 4. Urine Na <10 c/w solute depletion. Creatinine has plateaued. Hyperkalemia resolved. additional fluid and diuretics on hold. consulted Dr Murphy from nephrology for assistance with her GITA, CKD, low Na, etc. Appreciate his consultation. BMP am. (6) Chronic kidney disease, stage IV (severe): Baseline creat 1.6-2. Now with superimposed GITA - likely ATN given the granular casts, etc. BMP in am. Nephrology consult appreciated. (7) Elevated troponin: Troponins continue to be modestly elevated although they have trended downward even despite her c/o chest pain. Likely myocardial demand ischemia in setting of severe COPD / pneumonia -- but cannot r/o underlying CAD. cont asa cont BB consider repeat echo (8) COPD (chronic obstructive pulmonary disease): with exacerbation cont IV solumedrol - no wean today - she is receiving nearly 3mg/kg daily of steroids possible wean tomorrow Continue home inhalers Cont scheduled Duonebs pulmonary toilet high-flow NC -- wean as tolerated (9) Hypertension: Recent hospitalization for hypertensive urgency Blood pressures cont to be elevated Continue home carvedilol, hydralazine Cont topical nitrates - would change this to PO imdur tomorrow (10) Hyponatremia: chronic - baseline low 130s now with acute worsening urine Na <10 c/w salt depletion serum Na slightly better today repeat BMP am appreciate nephrology consult (11) Depression: cont lexapro cont trazodone (12) Severe protein-calorie malnutrition: ongoing for months extensive w/u - pang-CTs, HIDA scan, etc -- nondiagnostic due to severe, end-stage COPD? depression? combination of factors? underlying, occult malignancy? (13) Hypothyroidism: TSH last few months wnl cont synthroid (14) Hyperkalemia: 2nd to GITA - resolved recheck BMP am holding K supplements (15) DVT prophylaxis: heparin infusion son/daughter updated once again today modest progress overnight Subjective tele stable overnight when I arrived for rounds the patient was resting comfortably laying flat in the bed w/o distress her breathing looked very comfortable; the increased work of breathing seen yesterday was resolved she actually ate a little breakfast and lunch today according to son she stated to me she overall felt a little better today continues w/ chest discomforts in various areas (left costal area, midline lower sternal area, etc) -- these come and go Review of Systems Constitutional: + fatigue and + anorexia; no fever Respiratory: + dyspnea; no cough Cardiovascular: no orthopnea and no paroxysmal nocturnal dyspnea Gastrointestinal: no abdominal pain Physical Exam Constitutional: + cachectic and comfortable; + not well developed, + not well nourished, no acute distress and no altered mental status ENMT: external ear and nose normal, oropharynx normal Respiratory: no respiratory distress, no labored breathing and does not use accessory muscles Auscultation: + diminished lung sounds (airation however improved today in comparison to yesterday's exam); no wheezes Cardiovascular: Rate/Rhythm: regular rate and regular rhythm Heart Sounds: normal S1, normal S2 and + murmur (2/6 LSB) Vessels: posterior tibial pulses present and dorsalis pedis pulses present; no JVD Extremities: no edema Gastrointestinal (Abdomen): normal bowel sounds, soft, nontender, no hepatosplenomegaly Psychiatric: Orientation: alert and oriented x 3 Affect: + flat affect Results & Data Vital Signs (Past 12 Hours) Vital Signs Temp Pulse Pulse Pulse Resp BP Pulse Ox 07/14/19 19:17 83 18 93 07/14/19 15:51 85 20 96 07/14/19 15:49 85 20 96 07/14/19 15:39 36.9 C 84 24 168/87 H 96 07/14/19 11:41 36.8 C 82 26 H 163/86 H 94 07/14/19 11:10 82 22 99 Laboratory Results Laboratory Results - last 24 hr 07/14/19 07/14/19 07/14/19 07:28 07:28 07:28 WBC 12.00 H RBC 3.18 L Hgb 10.6 L Hct 31.1 L MCV 97.8 MCH 33.3 MCHC 34.1 RDW Std Deviation 58.1 H RDW Coeff of Umberto 16.4 H Plt Count 188 MPV 9.3 APTT PTT Ratio D-Dimer 7290 H* Sodium 127 L Potassium 4.7 Chloride 89 L Carbon Dioxide 29 Anion Gap 8.0 BUN 39 H Creatinine 2.35 H Est Cr Clr Drug Dosing 13.1 Est GFR ( Amer) 21.9 Est GFR (Non-Af Amer) 18.9 BUN/Creatinine Ratio 16.6 Glucose 79 Calcium 8.6 Phosphorus Albumin 07/14/19 07/14/19 14:58 18:02 WBC RBC Hgb Hct MCV MCH MCHC RDW Std Deviation RDW Coeff of Umberto Plt Count MPV APTT 59.8 H* PTT Ratio 2.2 D-Dimer Sodium 127 L Potassium 4.5 Chloride 90 L Carbon Dioxide 28 Anion Gap 9.0 BUN 44 H Creatinine 2.28 H Est Cr Clr Drug Dosing 13.5 Est GFR ( Amer) 22.8 Est GFR (Non-Af Amer) 19.6 BUN/Creatinine Ratio 19.1 Glucose 102 H Calcium 8.3 L Phosphorus 5.8 H Albumin 2.5 L PG Care Time/CCT Total # of Minutes Spent Total Time Spent with Patient: Total time spent is greater than 50% in coordination of care (as documented) at patient's floor/unit and/or counseling patient: (1) Depression Depression Type: other depression Qualified Code(s): F32.89 - Other specified depressive episodes (2) Hypothyroidism Hypothyroidism type: acquired Qualified Code(s): E03.9 - Hypothyroidism, unspecified (3) COPD (chronic obstructive pulmonary disease) COPD type: unspecified COPD Qualified Code(s): J44.9 - Chronic obstructive pulmonary disease, unspecified (4) Chest pain Chest pain type: unspecified Qualified Code(s): R07.9 - Chest pain, unspecified (5) Hypertension Hypertension type: essential hypertension Qualified Code(s): I10 - Essential (primary) hypertension (6) Pneumonia Laterality: left Lung location: lower lobe of lung Pneumonia type: due to unspecified organism Qualified Code(s): J18.1 - Lobar pneumonia, unspecified organism
[2019-07-14] MEDS: TRAZODONE HCL 50 MG TAB PO SCH (20:42)
[2019-07-15] MEDS: NITROGLYCERIN 2% OINTMENT 30GM TUBE EXT SCH ×2 (01:38→07:30)
[2019-07-15] MEDS: ALBUT/IPRATROP 3MG/0.5MG NEB 3 ML VIAL NEB SCH ×6 (03:38→23:08)
[2019-07-15 04:56] LABS: Hematocrit (blood only) 27.4 % (37-47); Hemoglobin 9.5 g/dL (12.0-16.0); Mean Corpuscular Hemoglobin 33.9 pg (25-34); Mean Corpuscular Hgb Conc 34.7 g/dL (32-36); Mean Corpuscular Volume 97.9 fL (80-100); Mean Platelet Volume 9.3 fL (7.4-10.4); Platelet Count 135 K/uL (130-400); RDW Coefficient of Variation 16.3 % (11.5-14.5); RDW Standard Deviation 58.6 fL (36.4-46.3); White Blood Count 7.89 K/uL (4.8-10.8)
[2019-07-15] MEDS: methylPREDNISolone 60 MG in SYRINGE 0 ML IV SCH (05:02)
[2019-07-15] MEDS: LEVOTHYROXINE SODIUM 88 MCG TABLET PO SCH (05:09)
[2019-07-15 05:12] LABS: BUN Creatinine Ratio 19.6 (10-20); Calcium 7.8 mg/dl (8.5-10.1); Creatinine Clr Calc Pharmacy 13.2 ml/min; Est GFR (African American) 22.2; Est GFR (Non-African American) 19.1; Potassium 4.4 mmol/L (3.5-5.1)
[2019-07-15 05:22] LABS: Partial Thromboplastin Ratio 4.8
[2019-07-15 05:34] LABS: Partial Thromboplastin Time 130.4 Seconds (21.0-31.0)
[2019-07-15] MEDS: TRAMADOL HCL 50 MG TABLET PO PRN ×3 (06:08→20:18)
[2019-07-15] MEDS: HydrALAZINE TAB 50 MG TAB PO SCH ×3 (07:28→20:19)
[2019-07-15] MEDS: ASPIRIN 81 MG ECTAB PO SCH (07:28)
[2019-07-15] MEDS: CARVEDILOL 6.25 MG TAB PO SCH (07:29)
[2019-07-15] MEDS: ESCITALOPRAM OXALATE 10 MG TAB PO SCH (07:29)
[2019-07-15] MEDS: ACETAMINOPHEN 325 MG TAB PO PRN ×3 (07:31→23:53)
[2019-07-15 07:39] LABS: Partial Thromboplastin Ratio 2.2; Partial Thromboplastin Time 59.9 Seconds (21.0-31.0)
--- NOTE | 2019-07-15 10:16 | Nephrology Progress Note ---
Date of Service July 15, 2019 Assessment & Plan (1) Acute kidney injury: Acute on chronic renal insufficiency consistent with ATN. Remains nonoliguric. Slightly negative fluid balance. PO intake improved slightly. Remains on heparin gtt. Will provide low dose furosemide today to encourage a slightly negative fluid balance. Blood pressure remains notably accelerated. hydralazine will be increased to 75 mg TID and carvedilol to 12.5 mg twice daily. Repeat metabolic profile requested for this afternoon. Moderate chronic hyponatremia persists associated with poor PO intake, liver failure, and right heart failure. Ultimately I would suggest an even to slightly negative fluid balance. Her renal dysfunction is advanced and current condition guarded. 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 We have discussed this in detail in the past. I reviewed my concerns with the patient and her son today. She completed predialysis education and continues to insist that she would want hemodialysis if necessary. Eva has not put any limitations on her care. Unfortunately , she has advanced kidney and lung disease with limited options for management. There is no emergent indication for dialysis at this time. Understanding the patient's baseline health, cachexia, and multiple comorbidities, I would anticipate difficulties tolerating hemodialysis. Hopefully we will see continued improvement with supportive care and treatment for pneumonia. Again, I would maintain a low threshold to repeat lung CT once stable. (2) Hyponatremia: (3) Chronic kidney disease, stage IV (severe): (4) Pulmonary hypertension: Subjective No acute events overnight. Back pain noted today. Eva notes discomfort from being in bed. Remains significantly weak. SAMANO with minimal exertion. Overall shortness of breath at rest improved. Appetite slightly improved. Able to eat a small amount with breakfast. No fevers or chills. Son remains at the bedside. Review of Systems Review of Systems: All systems reviewed & are unremarkable except as noted in HPI & below Physical Exam Constitutional: + ill appearing, + thin and + frail appearing Eyes: no scleral abnormality and no corneal abnormality ENMT: Mouth: + dry oral mucous membranes; no oral mucosal abnormality Neck: normal visual inspection and trachea midline Respiratory: + uses accessory muscles; no cough Auscultation: no rales, no rhonchi and no wheezes Cardiovascular: Heart Sounds: normal S1, normal S2 and + murmur Vessels: + JVD Extremities: no edema Gastrointestinal (Abdomen): Percussion/Palpation: abdomen soft; abdomen nontender Musculoskeletal: Extremities: + muscle atrophy and + cyanosis; no clubbing Skin: + turgor decreased; no rashes Neurologic: Motor/Sensory: no tremor and no asterixis Results & Data Vital Signs (Past 12 Hours) Vital Signs Temp Pulse Resp BP Pulse Ox 07/15/19 07:15 36.8 C 85 26 H 186/100 H 98 07/15/19 07:10 86 22 96 07/15/19 04:00 87 22 167/84 H 94 07/15/19 03:38 89 20 100 07/14/19 23:23 36.4 C L 88 20 170/98 H 99 07/14/19 23:13 88 24 98 Laboratory Results Laboratory Results - last 24 hr 07/14/19 07/14/19 07/15/19 14:58 18:02 04:44 WBC 7.89 RBC 2.80 L Hgb 9.5 L Hct 27.4 L MCV 97.9 MCH 33.9 MCHC 34.7 RDW Std Deviation 58.6 H RDW Coeff of Umberto 16.3 H Plt Count 135 MPV 9.3 APTT 59.8 H* PTT Ratio 2.2 Sodium 127 L Potassium 4.5 Chloride 90 L Carbon Dioxide 28 Anion Gap 9.0 BUN 44 H Creatinine 2.28 H Est Cr Clr Drug Dosing 13.5 Est GFR ( Amer) 22.8 Est GFR (Non-Af Amer) 19.6 BUN/Creatinine Ratio 19.1 Glucose 102 H Calcium 8.3 L Phosphorus 5.8 H Albumin 2.5 L 07/15/19 07/15/19 07/15/19 04:44 04:44 06:54 WBC RBC Hgb Hct MCV MCH MCHC RDW Std Deviation RDW Coeff of Umberto Plt Count MPV APTT 130.4 H* 59.9 H* PTT Ratio 4.8 2.2 Sodium 128 L Potassium 4.4 Chloride 89 L Carbon Dioxide 31 Anion Gap 8.0 BUN 46 H Creatinine 2.33 H Est Cr Clr Drug Dosing 13.2 Est GFR ( Amer) 22.2 Est GFR (Non-Af Amer) 19.1 BUN/Creatinine Ratio 19.6 Glucose 108 H Calcium 7.8 L Phosphorus Albumin PG Care Time/CCT Total # of Minutes Spent Total Time Spent with Patient: Total time spent is greater than 50% in coordination of care (as documented) at patient's floor/unit and/or counseling patient:
[2019-07-15] MEDS ORDERED: FUROSEMIDE 20 MG in SYRINGE 0 ML IV ONE (10:30)
[2019-07-15] MEDS: PIPERACILLIN/TAZOBACTAM 3.375 GM in DEXTROSE 5% 100 ML IV SCH ×2 (10:58→22:47)
[2019-07-15] MEDS: COLESTIPOL HCL 5 GM POWDER PACK PO SCH (11:01)
[2019-07-15] MEDS: CARVEDILOL 12.5 MG TAB PO SCH ×2 (11:31→17:08)
[2019-07-15] MEDS: NYSTATIN SUSP 500,000 U/5 ML UDC PO SCH ×3 (13:54→20:19)
[2019-07-15 14:21] LABS: Partial Thromboplastin Ratio 2.2
[2019-07-15 14:22] LABS: Partial Thromboplastin Time 59.2 Seconds (21.0-31.0)
[2019-07-15 14:26] LABS: BUN Creatinine Ratio 20.2 (10-20); Calcium 7.8 mg/dl (8.5-10.1); Creatinine Clr Calc Pharmacy 13.2 ml/min; Est GFR (African American) 22.2; Est GFR (Non-African American) 19.1; Potassium 4.3 mmol/L (3.5-5.1)
--- NOTE | 2019-07-15 16:07 | Pulmonary Consultation ---
Date of Consultation July 15, 2019 Assessment & Plan (1) Acute and chronic respiratory failure with hypoxia: 1. Agree with Zosyn for antibiotic coverage. 2. Continue with duo nebs 3. Patient still on methylprednisolone. We will try to taper when she is a bit improved. 4. Perhaps tomorrow give a trial off of the high flow and see if she tolerates nasal cannula or oxygen mask. 5. Unfortunately the patient cannot have a CT Angio of the chest due to renal function. She would not tolerate doing a VQ scan based upon severe hypoxia. It likely would be very difficult to interpret in light of her emphysema. 6. Await results of echo. It may be some of her edema and effusions could be related to the pulmonary hypertension. 7. Consider trial of Mucinex to try and loosen secretions. 8. Flutter valve 9. Check TB Gold in light of right apical fibrotic changes (2) Pneumonia: Laterality: left Lung location: lower lobe of lung Pneumonia type: due to unspecified organism Qualified Code(s): J18.1 - Lobar pneumonia, unspecified organism (3) Pleural effusion: (4) Pulmonary hypertension: History of Present Illness Attending Physician: Joseph Us History of Present Illness Pulmonary consultation is requested by Dr. Us. The patient is an 78-year-old femur who was admitted on 07/11/2019. She has a history of COPD. She had a 3-day history of increasing shortness of breath and chest tightness. Her appetite had decreased. She states that she has some cough. She is not able to expectorate sputum. She was given BiPAP initially but did not tolerate it well. Subsequently she was given high flow oxygen which she remains on currently. The patient she estimates she smoked for 60 years and she quit in November of this year. She is still using nicotine replacement therapy. She is apparently using nicotine gum about 6 times per day. Her appetite is poor. She estimates she is lost about 20 pounds since early this year. She denies any nausea vomiting or diarrhea. She did have some lower extremity swelling but that has resolved. She lived most of her life in [facility]. She moved to this area approximately 1 year ago to be with her daughter. She does have to do steps and she has to sit and rest after she goes up 1 flight of steps. She cannot walk through a large store such as [employer] without getting very winded. The patient has a history of heartburn. She states it occurs approximately every other day. She does not take any medicines for this. In addition to COPD the patient also had a history of pulmonary emboli. I did review outpatient pulmonary function testing done 12/29/2018. This showed a moderate obstructive pattern with mild improvement following bronchodilators. Diffusion was severely reduced at 31%. The patient's breathing medications at home include duo nebs up to 4 times daily, and she tells me she takes Bevespi Aerosphere 1 puff twice daily. The chart lists that she is taking 2 puffs twice daily. She is on 3 L nasal cannula continuous. Review of records shows that the patient did undergo bronchoscopy on 03/25/2019. Reportedly she had thick secretions. Allergies Allergy/AdvReac Type Severity Reaction Status Date / Time morphine Allergy Severe Hypotension Verified 07/11/19 13:17 Gvpnsbz-Zyh-Anh Reductase Allergy Severe Unknown Verified 07/11/19 13:17 Inhibitor Home Medications Home Medications Medication Instructions Recorded Confirmed Type Bevespi Aerosphere 2 puff INHALATION BID 03/10/19 07/11/19 History levothyroxine 88 mcg PO QAM 03/10/19 07/11/19 History ranitidine HCl [Zantac] 150 mg PO DAILY PRN 03/10/19 07/11/19 History alendronate 70 mg PO WK 03/27/19 07/11/19 History ipratropium-albuterol 3 ml INHALATION QID 03/27/19 07/11/19 History cetirizine [Zyrtec] 10 mg PO DAILY PRN 06/04/19 07/11/19 History colestipol 5 g PO DAILY 06/04/19 07/11/19 History ergocalciferol (vitamin D2) 50,000 unit PO WK 06/04/19 07/11/19 History [Vitamin D2] nicotine (polacrilex) [Nicorette] 2 mg BUCCAL Q3H PRN 06/04/19 07/11/19 History potassium chloride 20 meq PO BID 06/04/19 07/11/19 History trazodone 50 mg PO HS 06/04/19 07/11/19 History carvedilol 6.25 mg PO BID #60 tab 06/07/19 07/11/19 Rx escitalopram oxalate 10 mg PO QAM #30 tab 06/07/19 07/11/19 Rx tramadol 50 mg PO TID PRN #20 tab 06/07/19 07/11/19 Rx hydralazine 50 mg tablet 50 mg PO TID #90 tab 06/17/19 07/11/19 Rx Patient History Medical History Chronic kidney disease, stage IV (severe) Depression (Chronic) Headache (Chronic) COPD (chronic obstructive pulmonary disease) (Chronic) Hypothyroidism (Chronic) Renal artery stenosis (Chronic) History of hysterectomy Hypertension (Chronic) Dyslipidemia (Chronic) Breast cancer (Resolved) Pulmonary embolism (Resolved) Surgical History H/O mastectomy H/O abdominal aortic aneurysm repair History of right hip replacement Family History Father Myocardial infarction Social History Preferred Language: [place] Communication Ability: Effective 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 Energy level diminished. Neurologic: History on chart is that the family feels she has had some mental decline over the past year. Denies headache or dizziness. Ophthalmic: Denies visual complaints ENT: Denies complaints Cardiac: Denies chest pains or palpitations Pulmonary: As noted in history of present illness GI: Heartburn every other day. : Denies complaints Musculoskeletal: Denies complaints Dermatologic: Denies rashes Endocrine: Denies lymphadenopathy Physical Exam Physical Exam: The patient is a very pleasant cachectic appearing female age 78. She was cooperative alert and oriented. She was looking mildly short of breath. She is on high flow oxygen at this time which is 35% with 30 L/min flow rates. Pupils were reactive. Nares clear. Mouth exam showed dentures on top. She appears to have some thickened exudate in the mouth. It does not appear typical for candidiasis. She denies that she uses any agent on top to make the dentures stick. Neck veins are distended. No lymph nodes palpable. Cardiac rate 84/min. Rhythm is regular. Blood pressure 148/78. The rib spaces are very evident because of cachexia. Auscultation revealed severely diminished breath sounds. No active wheezes heard. Respiratory rate 20. Saturation 92% on high flow. Abdomen soft. Bowel sounds present. No tenderness to palpation or definite masses. Extremities showed no cyanosis clubbing or edema. Results & Data Vital Signs (Past 12 Hours) Vital Signs Temp Pulse Pulse Resp BP Pulse Ox 07/15/19 15:33 84 19 92 07/15/19 11:22 36.5 C 74 24 148/78 H 98 07/15/19 11:05 76 22 92 07/15/19 07:15 36.8 C 85 26 H 186/100 H 98 07/15/19 07:10 86 22 96 07/15/19 04:00 87 22 167/84 H 94 07/15/19 03:38 89 20 100 Laboratory Results CBC today shows a white count of 7.89. Yesterday white count was 12. Hemoglobin today 9.5 and yesterday was 10.6. Platelets 135,000. PTT was 59.2. D-dimer was 7290. Prior d-dimer on 11/12/2018 was 6100. Venous blood gas done 07/13/2019 showed pH 7.40, PCO2 47, PO2 43. It should be noted that an arterial blood gas done in November this year showed a PCO2 of 53 with a normal pH of 7.41. PO2 was 78 at that time. Patient has a history of hyponatremia. Sodium today 126 potassium 4.3 chloride 88 bicarb 31. BUN 47 with creatinine 2.33. Albumin severely decreased to 2.5. Phosphorus elevated at 5.8. Blood cultures negative x2. Diagnostic Findings Chest x-ray on 07/11/2019 showed advanced emphysema. There were small pleural effusions as well as a increased density at the left base. This would be suggestive for pneumonia. Cannot entirely exclude that it is all effusion. Repeat chest x-ray done 07/13/2019 suggested small bilateral effusions with bibasilar opacities which may represent consolidation or atelectasis. Right apical scarring was noted. CT of the chest had been done on 06/04/2019. This showed emphysema and mild bronchiectasis. There was a right apical density favoring fibrotic scarring. No focal lung consolidations were noted at that time. Venous Doppler was negative. PG Care Time/CCT Total # of Minutes Spent Total Time Spent with Patient: Total time spent is greater than 50% in coordination of care (as documented) at patient's floor/unit and/or counseling patient:
[2019-07-15] MEDS: methylPREDNISolone 40 MG in SYRINGE 0 ML IV SCH (17:09)
[2019-07-15] MEDS: LACTOBACILLUS ACIDOPHILUS (FLORANEX) TAB PO SCH (17:09)
[2019-07-15] MEDS: HEPARIN SODIUM/DEXTROSE 25,000 UNITS/500 ML BAG IV SCH (20:02)
[2019-07-15] MEDS: guaiFENesin 600 MG TABCR PO SCH (20:19)
[2019-07-15] MEDS: TRAZODONE HCL 50 MG TAB PO SCH (20:19)
--- NOTE | 2019-07-15 21:10 | Hospitalist Progress Note ---
Date of Service July 15, 2019 Assessment & Plan (1) Acute and chronic respiratory failure with hypoxia: Likely multifactorial - COPD exacerbation, LLL pneumonia -- all in context of end-stage COPD and severe pulmonary HTN. I cannot rule out PEs especially in light of prior VTE event several years ago and her markedly elevated d-dimer. Unfortunately cannot obtain CTA chest due to CKD and she is still too ill to obtain V/Q (and V/Q likely to not be terribly helpful in light of pneumonia, COPD, etc). Continues on empiric heparin infusion to cover for possible PEs. Cont high-flow NC - suspect we can wean back to standard NC in the next 24 hours. Will obtain echo to check RV function and status of pulm HTN. Obtain pulmonary consultation for any additional treatment recommendations. (2) D-dimer, elevated: see above cont empiric heparin infusion v/q scan tomorrow? will it be helpful? (3) Chest pain: Despite the frequent episodes of chest discomfort this admission her troponin only naheed modestly. I am less suspicious this is anginal pain but cannot fully rule it out. Pain could be from PEs, esophageal, LLL pneumonia, or the severe COPD exacerbation itself. Cont to monitor. (4) Pneumonia: LLL. Will Rx for nosocomial pneumonia as she was hospitalized a little over 1 month ago. Rx for gram negatives with zosyn for now. MRSA swab neg; defer on MRSA coverage at this time. Blood cx's negative. day #4-5 / 7 of treatment. (5) Acute kidney injury: concern for ATN in setting of CKD stage 4. Urine Na <10 c/w solute depletion. Creatinine has plateaued at ~2.3 and remains steady at that level. consulted Dr Murphy from nephrology for assistance with her GITA, CKD, low Na, etc. Appreciate his consultation. BMP am. Holding diuretics and IV fluids. (6) Chronic kidney disease, stage IV (severe): Baseline creat 1.6-2. Now with superimposed GITA - likely ATN given the granular casts, etc. Nephrology consult appreciated. (7) Elevated troponin: Troponins modestly elevated this admission. Likely myocardial demand ischemia in setting of severe COPD / pneumonia -- but cannot r/o underlying CAD (numerous risk factors for such). cont asa cont BB repeat echo today - check LV wall motion and EF (8) COPD (chronic obstructive pulmonary disease): with exacerbation cont IV solumedrol - wean to 40mg q12h (still 2mg/kg) Continue home inhalers Cont scheduled Duonebs pulmonary toilet high-flow NC -- wean as tolerated back to standard NC pulmonary consult w/ Dr Layne requested (9) Hypertension: Recent hospitalization for hypertensive urgency Blood pressures cont to be elevated Continue home carvedilol, hydralazine - latter titrated today by Dr Murphy Stop topical nitrates (10) Hyponatremia: chronic - baseline low 130s now with acute worsening urine Na <10 c/w salt depletion cont serial BMPs appreciate nephrology consult (11) Depression: cont lexapro cont trazodone (12) Severe protein-calorie malnutrition: ongoing for months extensive w/u - pang-CTs, HIDA scan, etc -- nondiagnostic due to severe, end-stage COPD? depression? combination of factors? underlying, occult malignancy? one of her scans showed esophageal abnormalities poor candidate for EGD however (13) Hypothyroidism: TSH on recent check wnl cont synthroid (14) Hyperkalemia: 2nd to GITA - resolved (15) Candidiasis of mouth and esophagus: nystatin 5cc qid (16) DVT prophylaxis: heparin infusion son updated at bedside still quite ill but modest improvements day to day Subjective patient feels a bit better today no dyspnea at rest but promptly gets dyspneic w/ minimal movement nurses report she got to the commode and had bowel movement sats on monitor during my visit - 98-100% appetite unchanged (poor/fair at best) chest discomforts/upper abdominal discomfort resolved no cough son at bedside Review of Systems Constitutional: + fatigue and + anorexia; no fever and no chills Cardiovascular: no chest pain and no orthopnea Gastrointestinal: no abdominal pain, no nausea, no vomiting and no diarrhea /loose stools Physical Exam Constitutional: + cachectic and comfortable; + not well developed, + not well nourished, no acute distress and no altered mental status ENMT: Mouth: + oral mucosal abnormality (thrush plaques) and + dry oral mucous membranes Respiratory: no respiratory distress, no labored breathing and does not use accessory muscles Auscultation: + diminished lung sounds (airation again improved today); no wheezes Cardiovascular: Rate/Rhythm: regular rate and regular rhythm Heart Sounds: normal S1, normal S2 and + murmur (2/6 LSB) Vessels: posterior tibial pulses present and dorsalis pedis pulses present; no JVD Extremities: no edema Gastrointestinal (Abdomen): normal bowel sounds, soft, nontender, no hepatosplenomegaly Psychiatric: Orientation: alert and oriented x 3 Results & Data Vital Signs (Past 12 Hours) Vital Signs Temp Pulse Pulse Pulse Resp BP Pulse Ox 07/15/19 20:04 76 18 98 07/15/19 19:59 75 18 98 07/15/19 19:29 36.7 C 74 20 122/72 95 07/15/19 16:48 76 07/15/19 16:00 36.6 C 77 24 130/68 97 07/15/19 15:33 84 18 92 07/15/19 11:22 36.5 C 74 24 148/78 H 98 07/15/19 11:05 76 22 92 Laboratory Results Laboratory Results - last 24 hr 07/15/19 07/15/19 07/15/19 04:44 04:44 04:44 WBC 7.89 RBC 2.80 L Hgb 9.5 L Hct 27.4 L MCV 97.9 MCH 33.9 MCHC 34.7 RDW Std Deviation 58.6 H RDW Coeff of Umberto 16.3 H Plt Count 135 MPV 9.3 APTT 130.4 H* PTT Ratio 4.8 Sodium 128 L Potassium 4.4 Chloride 89 L Carbon Dioxide 31 Anion Gap 8.0 BUN 46 H Creatinine 2.33 H Est Cr Clr Drug Dosing 13.2 Est GFR ( Amer) 22.2 Est GFR (Non-Af Amer) 19.1 BUN/Creatinine Ratio 19.6 Glucose 108 H Calcium 7.8 L Urine Osmolality Ur Random Sodium TB Test (QFT) Gold Plus TB Test (QFT) Nil TB Test Mitogen - Nil TB Test Ag - Nil 1 TB Test Ag - Nil 2 07/15/19 07/15/19 07/15/19 06:54 13:50 13:50 WBC RBC Hgb Hct MCV MCH MCHC RDW Std Deviation RDW Coeff of Umberto Plt Count MPV APTT 59.9 H* 59.2 H* PTT Ratio 2.2 2.2 Sodium 126 L Potassium 4.3 Chloride 88 L Carbon Dioxide 31 Anion Gap 7.0 BUN 47 H Creatinine 2.33 H Est Cr Clr Drug Dosing 13.2 Est GFR ( Amer) 22.2 Est GFR (Non-Af Amer) 19.1 BUN/Creatinine Ratio 20.2 H Glucose 139 H Calcium 7.8 L Urine Osmolality Ur Random Sodium TB Test (QFT) Gold Plus TB Test (QFT) Nil TB Test Mitogen - Nil TB Test Ag - Nil 1 TB Test Ag - Nil 2 07/15/19 07/15/19 07/15/19 16:48 19:55 19:55 WBC RBC Hgb Hct MCV MCH MCHC RDW Std Deviation RDW Coeff of Umberto Plt Count MPV APTT PTT Ratio Sodium Potassium Chloride Carbon Dioxide Anion Gap BUN Creatinine Est Cr Clr Drug Dosing Est GFR ( Amer) Est GFR (Non-Af Amer) BUN/Creatinine Ratio Glucose Calcium Urine Osmolality 297 L Ur Random Sodium 20 TB Test (QFT) Gold Plus Pending TB Test (QFT) Nil Pending TB Test Mitogen - Nil Pending TB Test Ag - Nil 1 Pending TB Test Ag - Nil 2 Pending PG Care Time/CCT Total # of Minutes Spent Total Time Spent with Patient: Total time spent is greater than 50% in coordination of care (as documented) at patient's floor/unit and/or counseling patient: (1) Depression Depression Type: other depression Qualified Code(s): F32.89 - Other specified depressive episodes (2) Hypothyroidism Hypothyroidism type: acquired Qualified Code(s): E03.9 - Hypothyroidism, unspecified (3) COPD (chronic obstructive pulmonary disease) COPD type: unspecified COPD Qualified Code(s): J44.9 - Chronic obstructive pulmonary disease, unspecified (4) Chest pain Chest pain type: unspecified Qualified Code(s): R07.9 - Chest pain, unspecified (5) Hypertension Hypertension type: essential hypertension Qualified Code(s): I10 - Essential (primary) hypertension (6) Pneumonia Laterality: left Lung location: lower lobe of lung Pneumonia type: due to unspecified organism Qualified Code(s): J18.1 - Lobar pneumonia, unspecified organism
[2019-07-16] MEDS: ALBUT/IPRATROP 3MG/0.5MG NEB 3 ML VIAL NEB SCH ×6 (03:32→23:06)
[2019-07-16 04:59] LABS: Hematocrit (blood only) 23.7 % (37-47); Hemoglobin 8.2 g/dL (12.0-16.0); Mean Corpuscular Hemoglobin 33.7 pg (25-34); Mean Corpuscular Hgb Conc 34.6 g/dL (32-36); Mean Corpuscular Volume 97.5 fL (80-100); Mean Platelet Volume 9.5 fL (7.4-10.4); Platelet Count 124 K/uL (130-400); RDW Coefficient of Variation 16.2 % (11.5-14.5); RDW Standard Deviation 58.6 fL (36.4-46.3); Red Blood Count 2.43 M/uL (4.2-5.4); White Blood Count 5.72 K/uL (4.8-10.8)
[2019-07-16] MEDS: TRAMADOL HCL 50 MG TABLET PO PRN ×2 (05:00→22:19)
[2019-07-16] MEDS: methylPREDNISolone 40 MG in SYRINGE 0 ML IV SCH ×2 (05:01→17:43)
[2019-07-16] MEDS: LEVOTHYROXINE SODIUM 88 MCG TABLET PO SCH (05:01)
[2019-07-16 05:21] LABS: Partial Thromboplastin Ratio 2.2
[2019-07-16 05:23] LABS: Albumin Level 2.3 gm/dl (3.4-5.0); BUN Creatinine Ratio 20.6 (10-20); Calcium 7.6 mg/dl (8.5-10.1); Creatinine Clr Calc Pharmacy 13.1 ml/min; Phosphorus 5.7 mg/dl (2.5-4.9)
[2019-07-16 05:28] LABS: Partial Thromboplastin Time 58.6 Seconds (21.0-31.0)
[2019-07-16] MEDS ORDERED: ALENDRONATE SODIUM 70 MG TAB PO SCH (06:30)
[2019-07-16] MEDS: ACETAMINOPHEN 325 MG TAB PO PRN (06:45)
[2019-07-16] MEDS: CARVEDILOL 12.5 MG TAB PO SCH ×2 (08:45→17:43)
[2019-07-16] MEDS: LACTOBACILLUS ACIDOPHILUS (FLORANEX) TAB PO SCH ×3 (08:45→17:42)
[2019-07-16] MEDS: HydrALAZINE TAB 50 MG TAB PO SCH ×3 (08:46→21:17)
[2019-07-16] MEDS: ESCITALOPRAM OXALATE 10 MG TAB PO SCH (08:47)
[2019-07-16] MEDS: ASPIRIN 81 MG ECTAB PO SCH (08:47)
[2019-07-16] MEDS: guaiFENesin 600 MG TABCR PO SCH ×2 (08:47→21:22)
[2019-07-16] MEDS: NYSTATIN SUSP 500,000 U/5 ML UDC PO SCH ×4 (08:48→21:21)
[2019-07-16] MEDS ORDERED: FUROSEMIDE 20 MG in SYRINGE 0 ML IV ONE (09:15)
[2019-07-16] MEDS: COLESTIPOL HCL 5 GM POWDER PACK PO SCH (10:12)
[2019-07-16] MEDS: PIPERACILLIN/TAZOBACTAM 3.375 GM in DEXTROSE 5% 100 ML IV SCH ×2 (10:13→21:22)
--- NOTE | 2019-07-16 10:23 | Nephrology Progress Note ---
Date of Service July 16, 2019 Assessment & Plan (1) Acute kidney injury: TTE reviewed this morning. Pulmonology consult reviewed. Creatinine stable at 2.3 mg/dL. Remains nonoliguric. Fair response to low dose furosemide yesterday. Additional 20 mg provided this morning. I/O negative ~400 in past 24 hours. PO intake improved slightly. Remains on heparin gtt. Continue low dose furosemide to encourage a slightly negative fluid balance. Blood pressure has improved and no additional adjustment in hydralazine or carvedilol were made at this time. Will repeat tomorrow AM. Moderate chronic hyponatremia persists associated with poor PO intake, liver failure, and right heart failure. Urine studies consistent with diuretic use. Urine sodium excretion improving which is encouraging. Renal dysfunction is advanced and current condition remains guarded. 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 Thankfully there is no indication for dialysis at this time. (2) Hyponatremia: (3) Chronic kidney disease, stage IV (severe): (4) Pulmonary hypertension: Subjective No acute events overnight. Eva's son remains at the bedside. Dyspnea is improving. She was out of bed to the commode this morning. Profound weakness persists. No fevers or chills. Appetite continues to improve. Review of Systems Review of Systems: All systems reviewed & are unremarkable except as noted in HPI & below Physical Exam Constitutional: + thin and + frail appearing Eyes: no scleral abnormality and no corneal abnormality ENMT: Mouth: no oral mucosal abnormality and oral mucous membranes not dry Neck: normal visual inspection and trachea midline Respiratory: no cough Auscultation: no rales, no rhonchi and no wheezes Cardiovascular: Heart Sounds: normal S1, normal S2 and + murmur Vessels: + JVD Extremities: no edema Gastrointestinal (Abdomen): Percussion/Palpation: abdomen soft; abdomen nontender Musculoskeletal: Extremities: + muscle atrophy and + cyanosis; no clubbing Skin: + turgor decreased; no rashes Neurologic: Motor/Sensory: no tremor and no asterixis Results & Data Vital Signs (Past 12 Hours) Vital Signs Temp Pulse Pulse Resp BP Pulse Ox 07/16/19 07:22 36.5 C 77 20 155/86 H 94 07/16/19 07:12 96 H 14 94 07/16/19 04:20 36.4 C L 80 19 154/82 H 95 07/16/19 03:33 83 12 99 07/16/19 03:32 83 12 99 07/16/19 00:25 36.5 C 80 20 148/83 H 95 07/15/19 23:11 72 14 100 07/15/19 23:10 72 14 100 Laboratory Results Laboratory Results - last 24 hr 07/15/19 07/15/19 07/15/19 13:50 13:50 16:48 WBC RBC Hgb Hct MCV MCH MCHC RDW Std Deviation RDW Coeff of Umberto Plt Count MPV APTT 59.2 H* PTT Ratio 2.2 Sodium 126 L Potassium 4.3 Chloride 88 L Carbon Dioxide 31 Anion Gap 7.0 BUN 47 H Creatinine 2.33 H Est Cr Clr Drug Dosing 13.2 Est GFR ( Amer) 22.2 Est GFR (Non-Af Amer) 19.1 BUN/Creatinine Ratio 20.2 H Glucose 139 H Calcium 7.8 L Phosphorus Albumin Urine Osmolality Ur Random Sodium TB Test (QFT) Gold Plus Pending TB Test (QFT) Nil Pending TB Test Mitogen - Nil Pending TB Test Ag - Nil 1 Pending TB Test Ag - Nil 2 Pending 07/15/19 07/15/19 07/16/19 19:55 19:55 04:47 WBC RBC Hgb Hct MCV MCH MCHC RDW Std Deviation RDW Coeff of Umberto Plt Count MPV APTT 58.6 H* PTT Ratio 2.2 Sodium Potassium Chloride Carbon Dioxide Anion Gap BUN Creatinine Est Cr Clr Drug Dosing Est GFR ( Amer) Est GFR (Non-Af Amer) BUN/Creatinine Ratio Glucose Calcium Phosphorus Albumin Urine Osmolality 297 L Ur Random Sodium 20 TB Test (QFT) Gold Plus TB Test (QFT) Nil TB Test Mitogen - Nil TB Test Ag - Nil 1 TB Test Ag - Nil 2 07/16/19 07/16/19 04:47 04:47 WBC 5.72 RBC 2.43 L Hgb 8.2 L Hct 23.7 L MCV 97.5 MCH 33.7 MCHC 34.6 RDW Std Deviation 58.6 H RDW Coeff of Umberto 16.2 H Plt Count 124 L MPV 9.5 APTT PTT Ratio Sodium 125 L Potassium 4.0 Chloride 86 L Carbon Dioxide 31 Anion Gap 8.0 BUN 48 H Creatinine 2.34 H Est Cr Clr Drug Dosing 13.1 Est GFR ( Amer) 22.0 Est GFR (Non-Af Amer) 19.0 BUN/Creatinine Ratio 20.6 H Glucose 118 H Calcium 7.6 L Phosphorus 5.7 H Albumin 2.3 L Urine Osmolality Ur Random Sodium TB Test (QFT) Gold Plus TB Test (QFT) Nil TB Test Mitogen - Nil TB Test Ag - Nil 1 TB Test Ag - Nil 2 PG Care Time/CCT Total # of Minutes Spent Total Time Spent with Patient: Total time spent is greater than 50% in coordination of care (as documented) at patient's floor/unit and/or counseling patient:
--- NOTE | 2019-07-16 12:44 | Pulmonology Progress Note ---
Date of Service July 16, 2019 Assessment & Plan (1) Acute and chronic respiratory failure with hypoxia: The patient does not seem to be improving dramatically. She says she is moderately better. We discussed the fact that she had bronchoscopy back in March. I asked her if she felt better afterwards and she was not exactly sure. I spoke with Dr. Brambila who is her primary provider and she indicated the patient seemed to do much better after the scope. Thus the possibility of significant retained secretions exist. I do not think that is all the problem however. She does have effusions and markedly elevated proBNP as well as renal insufficiency. If she does not improve may need to consider therapeutic bronchoscopy. 1. Agree with Zosyn for antibiotic coverage. 2. Continue with duo nebs 3. Patient still on methylprednisolone. We will try to taper when she is a bit improved. 4. Advised trial of nasal cannula or oxygen mask in place of the high flow and see how she does. 5. Unfortunately the patient cannot have a CT Angio of the chest due to renal function. She would not tolerate doing a VQ scan based upon severe hypoxia. It likely would be very difficult to interpret in light of her emphysema. 6. Flutter valve 7. Await TB Gold in light of right apical fibrotic changes 8. repeat chest x-ray in a.m. (2) Pneumonia: Laterality: left Lung location: lower lobe of lung Pneumonia type: due to unspecified organism Qualified Code(s): J18.1 - Lobar pneumonia, unspecified organism (3) Pleural effusion: (4) Pulmonary hypertension: Subjective The patient thinks she feels slightly less short of breath. She states she is more uncomfortable in the bed than she is with her breathing. She has had some cough but she has been unable to expectorate any sputum. She denies any new problems. She is still on the high flow oxygen but only at 28%. Physical Exam Physical Exam: The patient is an 78-year-old female who was cooperative alert and oriented. She again looks mildly short of breath at rest. Temperature is 37 degrees. The patient continues to appear cachectic. ENT exam unchanged from yesterday. She is on nystatin for possible candidiasis. Neck veins are markedly distended. Cardiac rate 77/min. Rhythm regular. Blood pressure 148/82. Lung gruber revealed severely diminished breath sounds. There is prolongation to the expiratory phase of respiration. She seems to do pursed lip breathing even though she was never instructed in that. Respiratory rate 20 breaths/min at the time of my exam. There is some difficulty at times picking up the pulse oximeter. At the time of this exam she was 89% saturation. Abdomen was soft. Bowel sounds were normal. Was no tenderness to palpation. Extremities showed no cyanosis clubbing or edema. Results & Data Vital Signs (Past 12 Hours) Vital Signs Temp Pulse Pulse Resp BP Pulse Ox 07/16/19 11:22 77 16 93 07/16/19 11:20 37.0 C 76 16 148/82 H 99 07/16/19 07:22 36.5 C 77 20 155/86 H 94 07/16/19 07:12 96 H 14 94 07/16/19 04:20 36.4 C L 80 19 154/82 H 95 07/16/19 03:33 83 12 99 07/16/19 03:32 83 12 99 Laboratory Results White count today 5.72. Hemoglobin is down to 8.2. Yesterday it was 9.5. Platelets are 124,000. PTT is 58.6. Electrolytes show sodium 125 potassium 4 chloride 86 bicarb 31. BUN is 48 with a creatinine of 2.34. Blood sugar 118. Diagnostic Findings Echocardiogram done today showed normal systolic function. There was mild mitral regurg. Right ventricular systolic pressure was elevated at 40 to 50 mm. Moderate left pleural effusion was reported. This finding had been suggested from chest x-ray as well. PG Care Time/CCT Total # of Minutes Spent Total Time Spent with Patient: Total time spent is greater than 50% in coordination of care (as documented) at patient's floor/unit and/or counseling patient:
[2019-07-16 20:31] LABS: Hematocrit (blood only) 24.6 % (37-47); Hemoglobin 8.6 g/dL (12.0-16.0)
--- NOTE | 2019-07-16 20:43 | Hospitalist Progress Note ---
Date of Service July 16, 2019 Assessment & Plan (1) Acute blood loss anemia: several gram drop over last 48 hours. 2 sources - GI (melena stool that is heme+) and soft tissue (flank, left thigh, etc). cannot exclude retroperitoneal hemorrhage. at this point need to stop systemic heparin. repeat H/H tonight and in am. place on IV ppi twice daily for melena stools. consider CT abd/pelvis in am to exclude retroperitoneal hemorrhage and f/u of esophageal thickening seen on prior CT. (2) Heme positive stool: see above in "acute blood loss anemia" (3) Acute and chronic respiratory failure with hypoxia: Likely multifactorial - COPD exacerbation, LLL pneumonia -- all in context of end-stage COPD and severe pulmonary HTN. Slow, modest improvement day to day. High-flow NC has been weaned over last 48 hours. I cannot rule out PEs especially in light of prior VTE event several years ago and her markedly elevated d-dimer. Unfortunately cannot obtain CTA chest due to CKD and she is still too ill to obtain V/Q (and V/Q likely to not be terribly helpful in light of pneumonia, COPD, etc). Continues on empiric heparin infusion to cover for possible PEs but in light of heme+ stool, acute blood loss anemia, etc -- need to stop such. Can likely go to standard NC at this time. ECHO findings noted -- RV function normal; pulm HTN unchanged; no LV wall motion abnormalities. Appreciate pulmonary and nephrology recommendations. (4) D-dimer, elevated: see above unfortunately cannot obtain imaging to r/o VTE and will need to stop heparin in light of the above issues (5) Chest pain: Despite the frequent episodes of chest discomfort this admission her troponin only naheed modestly. I am less suspicious this is anginal pain but cannot fully rule it out. Echo w/o LV wall motion abnormalities. Pain could be from PEs, esophageal, LLL pneumonia, or the severe COPD exacerbation itself. Cont to monitor. (6) Pneumonia: LLL. Will Rx for nosocomial pneumonia as she was hospitalized a little over 1 month ago. Rx for gram negatives with zosyn for now. MRSA swab neg; defer on MRSA coverage at this time. Blood cx's negative. day #5-6 / 7 of treatment. (7) Acute kidney injury: likely ATN in setting of CKD stage 4. Urine Na <10 c/w solute depletion. Creatinine has plateaued at ~2.3 and remains steady at that level. consulted Dr Murphy from nephrology for assistance with her GITA, CKD, low Na, etc. Appreciate his consultation. BMP am. Holding diuretics and IV fluids. (8) Chronic kidney disease, stage IV (severe): Baseline creat 1.6-2. Now with superimposed GITA - likely ATN given the granular casts, etc. Nephrology consult appreciated. (9) Elevated troponin: Troponins modestly elevated this admission. Likely myocardial demand ischemia in setting of severe COPD / pneumonia -- but cannot r/o underlying CAD (numerous risk factors for such). cont asa cont BB repeat echo w/ normal LV wall motion (10) COPD (chronic obstructive pulmonary disease): with exacerbation cont IV solumedrol 40mg q12h (still 2mg/kg) consider wean tomorrow Continue home inhalers Cont scheduled Duonebs pulmonary toilet high-flow NC -- wean to standard NC tonight or in am pulmonary consult w/ Dr Layne appreciated (11) Hypertension: Recent hospitalization for hypertensive urgency Blood pressures cont to be labile Continue home carvedilol, hydralazine Consider long-acting nitrates (12) Hyponatremia: chronic - baseline low 130s now with acute worsening urine Na <10 c/w salt depletion cont serial BMPs appreciate nephrology consult - defer management to nephrology volume status today - does not look hypervolemic (13) Depression: cont lexapro cont trazodone (14) Severe protein-calorie malnutrition: ongoing for months extensive w/u - pang-CTs, HIDA scan, etc -- nondiagnostic due to severe, end-stage COPD? depression? combination of factors? underlying, occult malignancy? one of her scans showed esophageal abnormalities poor candidate for EGD however obtaining CT abd/pelvis tomorrow (15) Hypothyroidism: TSH on recent check wnl cont synthroid (16) Hyperkalemia: 2nd to GITA - resolved (17) Candidiasis of mouth and esophagus: nystatin 5cc qid improving (18) DVT prophylaxis: stop heparin - see above son/daughter updated at bedside still quite ill with new issues encountered today prognosis very poor Subjective patient reports ongoing SAMANO but she has been able to get from the bed to the commode. had very dark, melena stools today - heme+ on fecal occult. no abd pain. no nausea. still w/ some pain over left costal margin. very little appetite. family and staff today noted bruising over left flank, left hip/thigh, and left lower back - denies pain over thigh. very weak. tele stable overnight. Review of Systems Constitutional: + fatigue, + malaise, + weakness and + anorexia; no fever and no chills Ear, Nose, Mouth, Throat: no dysphagia Respiratory: + dyspnea and + dyspnea on exertion; no cough and no wheezing Cardiovascular: + chest pain; no orthopnea, no paroxysmal nocturnal dyspnea and no edema Gastrointestinal: + melena; no abdominal pain, no nausea and no vomiting Physical Exam Constitutional: + ill appearing, + cachectic and + frail appearing; + not well developed, + not well nourished, no acute distress and no altered mental status ENMT: Mouth: + oral mucosal abnormality (thrush plaques) and + dry oral mucous membranes Respiratory: no respiratory distress, no labored breathing and does not use accessory muscles Auscultation: + diminished lung sounds (bases; however airation scantly better from yesterday); no crackles and no wheezes Cardiovascular: Rate/Rhythm: regular rate and regular rhythm Heart Sounds: normal S1, normal S2 and + murmur (2/6 LSB) Vessels: posterior tibial pulses present and dorsalis pedis pulses present; no JVD Extremities: no edema Gastrointestinal (Abdomen): normal bowel sounds, soft, nontender, no hepatosplenomegaly Skin: + ecchymosis (extensive - left flank, left low back, left thigh - looks fresh ) Psychiatric: Orientation: alert and oriented x 3 Affect: + anxious affect Results & Data Vital Signs (Past 12 Hours) Vital Signs Temp Pulse Resp BP Pulse Ox 07/16/19 19:38 36.4 C L 80 18 171/97 H 91 07/16/19 19:10 84 14 92 07/16/19 15:31 36.8 C 85 18 164/85 H 98 07/16/19 15:24 85 20 100 07/16/19 15:21 85 20 100 07/16/19 11:22 77 16 93 07/16/19 11:20 37.0 C 76 16 148/82 H 99 Laboratory Results Laboratory Results - last 24 hr 07/16/19 07/16/19 07/16/19 04:47 04:47 04:47 WBC 5.72 RBC 2.43 L Hgb 8.2 L Hct 23.7 L MCV 97.5 MCH 33.7 MCHC 34.6 RDW Std Deviation 58.6 H RDW Coeff of Umberto 16.2 H Plt Count 124 L MPV 9.5 APTT 58.6 H* PTT Ratio 2.2 Sodium 125 L Potassium 4.0 Chloride 86 L Carbon Dioxide 31 Anion Gap 8.0 BUN 48 H Creatinine 2.34 H Est Cr Clr Drug Dosing 13.1 Est GFR ( Amer) 22.0 Est GFR (Non-Af Amer) 19.0 BUN/Creatinine Ratio 20.6 H Glucose 118 H Calcium 7.6 L Phosphorus 5.7 H Albumin 2.3 L Stool Occult Bld Scrn 07/16/19 07/16/19 17:30 20:16 WBC RBC Hgb 8.6 L Hct 24.6 L MCV MCH MCHC RDW Std Deviation RDW Coeff of Umberto Plt Count MPV APTT PTT Ratio Sodium Potassium Chloride Carbon Dioxide Anion Gap BUN Creatinine Est Cr Clr Drug Dosing Est GFR ( Amer) Est GFR (Non-Af Amer) BUN/Creatinine Ratio Glucose Calcium Phosphorus Albumin Stool Occult Bld Scrn Positive A PG Care Time/CCT Total # of Minutes Spent Total Time Spent with Patient: Total time spent is greater than 50% in coordination of care (as documented) at patient's floor/unit and/or counseling patient: (1) Depression Depression Type: other depression Qualified Code(s): F32.89 - Other specified depressive episodes (2) Hypothyroidism Hypothyroidism type: acquired Qualified Code(s): E03.9 - Hypothyroidism, unspecified (3) COPD (chronic obstructive pulmonary disease) COPD type: unspecified COPD Qualified Code(s): J44.9 - Chronic obstructive pulmonary disease, unspecified (4) Chest pain Chest pain type: unspecified Qualified Code(s): R07.9 - Chest pain, unspecified (5) Hypertension Hypertension type: essential hypertension Qualified Code(s): I10 - Essential (primary) hypertension (6) Pneumonia Laterality: left Lung location: lower lobe of lung Pneumonia type: due to unspecified organism Qualified Code(s): J18.1 - Lobar pneumonia, unspecified organism
[2019-07-16] MEDS: PANTOprazole 40 MG in SYRINGE 0 ML IV SCH (21:15)
[2019-07-16] MEDS: TRAZODONE HCL 50 MG TAB PO SCH (21:22)
[2019-07-17] MEDS: ALBUT/IPRATROP 3MG/0.5MG NEB 3 ML VIAL NEB SCH ×6 (02:09→23:02)
[2019-07-17] MEDS: methylPREDNISolone 40 MG in SYRINGE 0 ML IV SCH (04:59)
[2019-07-17 05:55] LABS: Hematocrit (blood only) 25.1 % (37-47); Hemoglobin 8.8 g/dL (12.0-16.0); Mean Corpuscular Hemoglobin 33.7 pg (25-34); Mean Corpuscular Hgb Conc 35.1 g/dL (32-36); Mean Corpuscular Volume 96.2 fL (80-100); Mean Platelet Volume 9.7 fL (7.4-10.4); Platelet Count 151 K/uL (130-400); RDW Coefficient of Variation 16.4 % (11.5-14.5); RDW Standard Deviation 56.7 fL (36.4-46.3); Red Blood Count 2.61 M/uL (4.2-5.4); White Blood Count 5.17 K/uL (4.8-10.8)
[2019-07-17 06:26] LABS: Albumin Level 2.5 gm/dl (3.4-5.0); BUN Creatinine Ratio 22.9 (10-20); Calcium 7.6 mg/dl (8.5-10.1); Est GFR (Non-African American) 20.7; Phosphorus 5.3 mg/dl (2.5-4.9); Potassium 3.7 mmol/L (3.5-5.1)
[2019-07-17] MEDS: LEVOTHYROXINE SODIUM 88 MCG TABLET PO SCH (07:17)
--- NOTE | 2019-07-17 08:39 | XRay Report ---
XR chest 1V portable CLINICAL HISTORY: 78 years-old Female presenting with pulm edema. TECHNIQUE: Portable upright AP view of the chest was obtained. COMPARISON: 07/13/2019. FINDINGS: Atherosclerosis of the aortic arch. Cardiac silhouette enlarged. Diffusely coarsened lung markings. I ncreased bibasilar opacities with increased small bilateral pleural effusions. No pneumothorax. Surgi hemant clips noted over the right axilla and right breast. Postsurgical changes of right mastectomy may be present. Osteopenia may be present. External leads project over the epigastrium degrading evaluati on of the upper abdomen. IMPRESSION: 1. Interval worsening of bibasilar infiltrates, which could represent mild edema, aspiration, or ate lectasis. 2. Increasing small bilateral pleural effusions. 3. Cardiomegaly. 4. Underlying chronic lung disease, consistent with known emphysema and bronchiectasis. Electronically signed by: Luther Patten M.D. 07/17/2019 8:38 AM
[2019-07-17] MEDS: LACTOBACILLUS ACIDOPHILUS (FLORANEX) TAB PO SCH ×3 (08:54→16:49)
[2019-07-17] MEDS: CARVEDILOL 12.5 MG TAB PO SCH ×2 (08:54→16:48)
[2019-07-17] MEDS: HydrALAZINE TAB 50 MG TAB PO SCH ×3 (08:55→21:08)
[2019-07-17] MEDS: NYSTATIN SUSP 500,000 U/5 ML UDC PO SCH ×4 (08:56→21:08)
[2019-07-17] MEDS: ESCITALOPRAM OXALATE 10 MG TAB PO SCH (08:56)
[2019-07-17] MEDS: guaiFENesin 600 MG TABCR PO SCH ×2 (08:56→21:08)
[2019-07-17] MEDS: PANTOprazole 40 MG in SYRINGE 0 ML IV SCH ×2 (08:56→21:00)
--- NOTE | 2019-07-17 09:58 | Pulmonology Progress Note ---
Date of Service July 17, 2019 Assessment & Plan (1) Acute and chronic respiratory failure with hypoxia: Unfortunately, it appears that Ms. Guerra is minimally improving since her admission. She has multi-organ failure which includes heart failure, end- stage COPD and renal failure. She does have moderate to large bilateral effusions that I saw on pleural ultrasound today. She does have evidence of diastolic heart failure with an elevated BNP and bilateral effusions. Clinically, she appears euvolemic on exam, however, given her large bilateral effusions I would recommend continued diuresis, but not necessarily in this case. She does have worsening hyponatremia, hypotension and worsening renal failure and thus we have to balance the risks and benefits of further diuresis. Ideally, I would perform a thoracentesis to see if her dyspnea would improve, however, given that her overall condition would likely not substantially improve I would forgo a thoracentesis at this time until she has a discussion with palliative care about treatment goals. I did discuss with her about palliation and hospice care and she says she would be interested in discussing further about this with the palliative care team. I do think that her overall prognosis is extremely poor and that she would benefit from a more conservative and palliative approach. Additionally, I do not think that high doses of IV solu-medrol are benefitting her much, thus I will changer her solu-medrol to 30 mg PO prednisone for a couple days. Lastly, she is on IV Zosyn and is having watery diarrhea. Recommend sending a c. diff toxin/pcr. I am concerned that she is at risk for C. difficile. I do not see an obvious pneumonia on her imaging and clinically either. I have ordered a procalcitonin level. If this is low, I would recommend discontinuing antibiotics. I think overall her hypoxemia is related to pulmonary edema and bilateral effusions which is a process secondary to her diastolic heart failure, renal failure and hypoalbuminemia. I discussed this plan with the hospitalist, Dr. Us, and he is in agreement. (2) Pneumonia: Laterality: left Lung location: lower lobe of lung Pneumonia type: due to unspecified organism Qualified Code(s): J18.1 - Lobar pneumonia, unspecified organism (3) Pleural effusion: (4) Pulmonary hypertension: (5) Hypoalbuminemia due to protein-calorie malnutrition: (6) Severe protein-energy malnutrition: (7) Pulmonary cachexia due to chronic obstructive pulmonary disease: (8) Renal failure (ARF), acute on chronic: Subjective Patient continues to complain of shortness of breath. This appears to be improved from her admission. She also has intermittent mid thoracic chest pain. She denies any fevers. She did have 2 bouts of diarrhea yesterday that were watery. She denies any bowel movements today. She is on a Vapotherm at 10 L of oxygen and is set to 32% FiO2. Saturating in the mid 80s on these settings. Review of Systems Review of Systems: All systems reviewed & are unremarkable except as noted in HPI & below Physical Exam Constitutional: Bitemporal wasting noted. Cachectic appearing. Tachypneic. Eyes: PERRL, conjunctivae normal, anicteric sclerae Eyes are sunken in. ENMT: external ear and nose normal, oropharynx normal Ears: no hearing impairment Neck: trachea midline, no thyromegaly trachea midline Respiratory: Tachypnea. Use of accessory muscles noted. Crackles bilaterally. Distant breath sounds. Cardiovascular: Rate/Rhythm: regular rate and regular rhythm Heart Sounds: + murmur Vessels: + JVD Gastrointestinal (Abdomen): normal bowel sounds, soft, nontender, no hepatosplenomegaly Inspection/Auscultation: no abdominal edema Musculoskeletal: We can fluid power mechanic. Range of motion is diminished. Muscular wasting noted throughout her extremities. Skin: Numerous ulcerations on her back. Neurologic: PERRL, EOMI, accommodation nl, no face palsy, no dysarthria CN's II-XI intact bilaterally Psychiatric: A+Ox3, euthymic affect Lymphatic: no cervical or axillary lymphadenopathy Results & Data Vital Signs (Past 12 Hours) Vital Signs Temp Pulse Pulse Resp BP Pulse Ox 07/17/19 08:25 97.9 F 88 16 96/66 L 90 07/17/19 07:08 89 18 93 07/17/19 07:07 89 16 93 07/17/19 04:50 81 18 92 07/17/19 04:00 97.9 F 86 20 175/94 H 91 07/17/19 02:11 84 16 91 07/17/19 02:10 84 16 91 07/17/19 00:16 97.7 F 82 20 168/93 H 91 07/17/19 00:00 77 07/16/19 23:08 80 16 92 Chest x-ray reviewed which demonstrates bilateral effusions and infiltrates. There does appear to be some diaphragmatic flattening BNP severely elevated. Renal failure noted. She is severely hyponatremic.. PG Care Time/CCT Total # of Minutes Spent Total Time Spent with Patient: Total time spent is greater than 50% in coordination of care (as documented) at patient's floor/unit and/or counseling patient: 45
[2019-07-17] MEDS: COLESTIPOL HCL 5 GM POWDER PACK PO SCH (10:05)
[2019-07-17] MEDS: PIPERACILLIN/TAZOBACTAM 3.375 GM in DEXTROSE 5% 100 ML IV SCH (10:05)
[2019-07-17] MEDS ORDERED: FUROSEMIDE 20 MG in SYRINGE 0 ML IV ONE (10:12)
--- NOTE | 2019-07-17 10:16 | Nephrology Progress Note ---
Date of Service July 17, 2019 Assessment & Plan (1) Acute kidney injury: Creatinine stable at 2.1 mg/dL. Good urine output. Tolerating slightly negative fluid balance. Additional 20 mg furosemide provided this morning. For anemia, a dose of Epogen will be provided. Blood loss noted. Hopefully we can avoid transfusion. Will recheck H/H + iron profile in the AM. Moderate chronic hyponatremia persists associated with poor PO intake, liver failure, and right heart failure. Urine studies consistent with diuretic use. Urine sodium excretion improving which is encouraging. Renal dysfunction is advanced and current condition remains guarded. 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 The patient and her daughter are in agreement that dialysis should not be considered part of the care plan. Palliative care consult is pending. (2) Hyponatremia: (3) Chronic kidney disease, stage IV (severe): (4) Pulmonary hypertension: Subjective Melena noted yesterday. Heparin DC'd. Breathing is labored this morning. No fevers or chills. Appetite is poor. Eva was seen and evaluated with her daughter at the bedside. The patient expressed fatigue and a desire to proceed with palliative and comfort care. Her daughter remains hopeful to see improvement with treatment. Both the patient and her daughter expressed an understanding that dialysis should not be considered part of her care plan. Review of Systems Review of Systems: All systems reviewed & are unremarkable except as noted in HPI & below Physical Exam Constitutional: + thin and + frail appearing Eyes: no scleral abnormality and no corneal abnormality ENMT: Mouth: no oral mucosal abnormality and oral mucous membranes not dry Neck: normal visual inspection and trachea midline Respiratory: no cough Auscultation: no rales, no rhonchi and no wheezes Cardiovascular: Heart Sounds: normal S1, normal S2 and + murmur Vessels: + JVD Extremities: no edema Gastrointestinal (Abdomen): Percussion/Palpation: abdomen soft; abdomen nontender Musculoskeletal: Extremities: + muscle atrophy and + cyanosis; no clubbing Skin: + turgor decreased; no rashes Neurologic: Motor/Sensory: no tremor and no asterixis Results & Data Vital Signs (Past 12 Hours) Vital Signs Temp Pulse Pulse Resp BP Pulse Ox 07/17/19 08:25 36.6 C 88 16 96/66 L 90 07/17/19 07:08 89 18 93 07/17/19 07:07 89 16 93 07/17/19 04:50 81 18 92 07/17/19 04:00 36.6 C 86 20 175/94 H 91 07/17/19 02:11 84 16 91 07/17/19 02:10 84 16 91 07/17/19 00:16 36.5 C 82 20 168/93 H 91 07/17/19 00:00 77 07/16/19 23:08 80 16 92 Laboratory Results Laboratory Results - last 24 hr 07/16/19 07/16/19 07/17/19 17:30 20:16 05:27 WBC 5.17 RBC 2.61 L Hgb 8.6 L 8.8 L Hct 24.6 L 25.1 L MCV 96.2 MCH 33.7 MCHC 35.1 RDW Std Deviation 56.7 H RDW Coeff of Umberto 16.4 H Plt Count 151 MPV 9.7 Sodium Potassium Chloride Carbon Dioxide Anion Gap BUN Creatinine Est Cr Clr Drug Dosing Est GFR ( Amer) Est GFR (Non-Af Amer) BUN/Creatinine Ratio Glucose Calcium Phosphorus NT-Pro-B Natriuret Pep Albumin Procalcitonin Stool Occult Bld Scrn Positive A 07/17/19 07/17/19 07/17/19 05:27 08:52 08:52 WBC RBC Hgb Hct MCV MCH MCHC RDW Std Deviation RDW Coeff of Umberto Plt Count MPV Sodium 123 L Potassium 3.7 Chloride 84 L Carbon Dioxide 30 Anion Gap 9.0 BUN 50 H Creatinine 2.18 H Est Cr Clr Drug Dosing 14.0 Est GFR ( Amer) 24.0 Est GFR (Non-Af Amer) 20.7 BUN/Creatinine Ratio 22.9 H Glucose 93 Calcium 7.6 L Phosphorus 5.3 H NT-Pro-B Natriuret Pep > 40163 H Albumin 2.5 L Procalcitonin 0.22 Stool Occult Bld Scrn PG Care Time/CCT Total # of Minutes Spent Total Time Spent with Patient: Total time spent is greater than 50% in coordination of care (as documented) at patient's floor/unit and/or counseling patient:
[2019-07-17] MEDS ORDERED: EPOETIN ALFA 10,000 UNITS/ML VIAL SQ SCH (10:30)
[2019-07-17] MEDS: TRAMADOL HCL 50 MG TABLET PO PRN ×2 (10:34→22:14)
[2019-07-17] MEDS: HEPARIN SODIUM/DEXTROSE 25,000 UNITS/500 ML BAG IV SCH (11:58)
[2019-07-17] MEDS: ACETAMINOPHEN 325 MG TAB PO PRN (16:47)
--- NOTE | 2019-07-17 20:26 | Hospitalist Progress Note ---
Date of Service July 17, 2019 Assessment & Plan (1) Acute blood loss anemia: 2 sources - GI (melena stool that is heme+) and soft tissue (flank, left thigh, etc). cannot exclude retroperitoneal hemorrhage. systemic heparin was stopped. H/H today have stabilized. in light of transitioning to hospice will defer on CT scans. cont PPI. (2) Heme positive stool: see above in "acute blood loss anemia" (3) Acute and chronic respiratory failure with hypoxia: Likely multifactorial - COPD exacerbation, LLL pneumonia, b/l pleural effusions-- all in context of end-stage COPD and severe pulmonary HTN. Slow, modest improvement day to day with steroids/abx/supportive care. High-flow NC has been weaned off; back to standard NC. There was concern for PEs but unable to get CTA chest or V/Q scan; and, she had bleeding on heparin. Heparin infusion stopped. Since we are transitioning to hospice will defer on work-up for this. Wean steroids. Completed 7 day run of abx - stop today. Focus on symptom control. (4) D-dimer, elevated: see above unfortunately cannot obtain imaging to r/o VTE and stopped heparin in light of the above issues (5) Chest pain: Despite the frequent episodes of chest discomfort this admission her troponin only naheed modestly. I am less suspicious this is anginal pain but cannot fully rule it out. Echo w/o LV wall motion abnormalities. Pain could be from PEs, esophageal, LLL pneumonia, or the severe COPD exacerbation itself. Simply treat symptoms. (6) Pneumonia: LLL. Completed 7 days of zosyn - stop abx today. (7) Acute kidney injury: likely ATN in setting of CKD stage 4. Cr peaked 2.3; now trending down. consulted Dr Murphy from nephrology for assistance with her GITA, CKD, low Na, etc. Appreciate his consultation. Defer management to Dr Murphy. (8) Chronic kidney disease, stage IV (severe): Baseline creat 1.6-2. Now with superimposed GITA - likely ATN given the granular casts, etc. Nephrology consult appreciated. (9) Elevated troponin: Troponins modestly elevated this admission. Likely myocardial demand ischemia in setting of severe COPD / pneumonia repeat echo w/ normal LV wall motion (10) COPD (chronic obstructive pulmonary disease): with exacerbation IV steroids stopped by pulmonary - wean to prednisone Continue home inhalers Cont scheduled Duonebs pulmonary toilet pulmonary consult and recs appreciated (11) Hypertension: Recent hospitalization for hypertensive urgency Blood pressures cont to be labile Continue home carvedilol, hydralazine Consider long-acting nitrates - this could help with frequent chest discomforts (12) Hyponatremia: chronic - baseline low 130s now with acute worsening - likely due to diuretics cont serial BMPs appreciate nephrology consult - defer management to nephrology (13) Depression: cont lexapro cont trazodone (14) Severe protein-calorie malnutrition: ongoing for months extensive w/u - pang-CTs, HIDA scan, etc -- nondiagnostic due to severe, end-stage COPD? depression? combination of factors? underlying, occult malignancy? one of her scans showed esophageal abnormalities; could easily have esophageal or gastric ca either way will not pursue w/u transitioning to hospice (15) Hypothyroidism: TSH on recent check wnl cont synthroid (16) Hyperkalemia: 2nd to GITA - resolved (17) Candidiasis of mouth and esophagus: nystatin 5cc qid improving (18) DVT prophylaxis: due to bleeding all chemical means stopped (19) Poor prognosis: 60+ minute conversation with patient and her son/daughter they are all in agreement about DNR status and transition to hospice at discharge we discussed options for hospice including home with hospice (pt lives w/ daughter) or SNF with hospice formal consult with palliative on Friday will need social work to assist with post-discharge plans total time today 75 minutes Subjective patient's HF NC weaned off; now back to standard NC O2 she and her son/daughter had lengthy conversation with field contact person this am - palliative care with hospice was recommended I had lengthy conversation with pt, son and daughter I concurred with pulmonology re: his recommendation for hospice we discussed all the various issues at hand - end-stage COPD, pleural effusions, ?PEs, GI bleeding, concern for occult cancer, GITA in setting of CKD, etc at conclusion of 60+ minute bedside conversation patient stated twice in presence of 2 children she wants DNR status and hospice at d/c Review of Systems Constitutional: no fever Respiratory: + dyspnea and + dyspnea on exertion; no cough Cardiovascular: + chest pain (had it again this am) Gastrointestinal: + melena; no abdominal pain, no nausea and no vomiting Physical Exam Constitutional: + ill appearing, + cachectic and + frail appearing; + not well developed, + not well nourished, no acute distress and no altered mental status ENMT: Mouth: + oral mucosal abnormality (thrush plaques much improved) and + dry oral mucous membranes Respiratory: no respiratory distress, no labored breathing and does not use accessory muscles Auscultation: + diminished lung sounds (bases); no crackles and no wheezes Cardiovascular: Rate/Rhythm: regular rate and regular rhythm Heart Sounds: normal S1, normal S2 and + murmur (2/6 LSB) Vessels: posterior tibial pulses present and dorsalis pedis pulses present; no JVD Extremities: no edema Gastrointestinal (Abdomen): normal bowel sounds, soft, nontender, no hepatosplenomegaly Skin: + ecchymosis (extensive - left flank, left low back, left thigh- no change from yesterday) Psychiatric: Orientation: alert and oriented x 3 Results & Data Vital Signs (Past 12 Hours) Vital Signs Temp Pulse Pulse Resp BP Pulse Ox 07/17/19 19:05 81 16 95 07/17/19 18:59 36.5 C 89 18 166/91 H 92 07/17/19 16:00 36.8 C 81 20 170/90 H 93 07/17/19 12:00 36.4 C L 76 24 164/90 H 98 07/17/19 11:37 72 20 94 07/17/19 11:35 72 20 94 07/17/19 08:25 36.6 C 88 16 96/66 L 90 Laboratory Results Laboratory Results - last 24 hr 07/16/19 07/17/19 07/17/19 20:16 05:27 05:27 WBC 5.17 RBC 2.61 L Hgb 8.6 L 8.8 L Hct 24.6 L 25.1 L MCV 96.2 MCH 33.7 MCHC 35.1 RDW Std Deviation 56.7 H RDW Coeff of Umberto 16.4 H Plt Count 151 MPV 9.7 Sodium 123 L Potassium 3.7 Chloride 84 L Carbon Dioxide 30 Anion Gap 9.0 BUN 50 H Creatinine 2.18 H Est Cr Clr Drug Dosing 14.0 Est GFR ( Amer) 24.0 Est GFR (Non-Af Amer) 20.7 BUN/Creatinine Ratio 22.9 H Glucose 93 Calcium 7.6 L Phosphorus 5.3 H NT-Pro-B Natriuret Pep Albumin 2.5 L Procalcitonin 07/17/19 07/17/19 08:52 08:52 WBC RBC Hgb Hct MCV MCH MCHC RDW Std Deviation RDW Coeff of Umberto Plt Count MPV Sodium Potassium Chloride Carbon Dioxide Anion Gap BUN Creatinine Est Cr Clr Drug Dosing Est GFR ( Amer) Est GFR (Non-Af Amer) BUN/Creatinine Ratio Glucose Calcium Phosphorus NT-Pro-B Natriuret Pep > 49089 H Albumin Procalcitonin 0.22 PG Care Time/CCT Total # of Minutes Spent Total Time Spent with Patient: Total time spent is greater than 50% in coordination of care (as documented) at patient's floor/unit and/or counseling patient: (1) Depression Depression Type: other depression Qualified Code(s): F32.89 - Other specified depressive episodes (2) Hypothyroidism Hypothyroidism type: acquired Qualified Code(s): E03.9 - Hypothyroidism, unspecified (3) COPD (chronic obstructive pulmonary disease) COPD type: unspecified COPD Qualified Code(s): J44.9 - Chronic obstructive pulmonary disease, unspecified (4) Chest pain Chest pain type: unspecified Qualified Code(s): R07.9 - Chest pain, unspecified (5) Hypertension Hypertension type: essential hypertension Qualified Code(s): I10 - Essential (primary) hypertension (6) Pneumonia Laterality: left Lung location: lower lobe of lung Pneumonia type: due to unspecified organism Qualified Code(s): J18.1 - Lobar pneumonia, unspecified organism
[2019-07-17] MEDS: TRAZODONE HCL 50 MG TAB PO SCH (21:08)
[2019-07-18] MEDS: ALBUT/IPRATROP 3MG/0.5MG NEB 3 ML VIAL NEB SCH ×6 (02:57→22:53)
[2019-07-18] MEDS: TRAMADOL HCL 50 MG TABLET PO PRN ×3 (03:37→18:43)
[2019-07-18 06:36] LABS: Albumin Level 2.5 gm/dl (3.4-5.0); BUN Creatinine Ratio 23.5 (10-20); Calcium 7.8 mg/dl (8.5-10.1); Creatinine Clr Calc Pharmacy 15.1 ml/min; Est GFR (Non-African American) 21.6; Phosphorus 4.7 mg/dl (2.5-4.9)
[2019-07-18] MEDS: LACTOBACILLUS ACIDOPHILUS (FLORANEX) TAB PO SCH ×4 (07:59→16:39)
[2019-07-18] MEDS: ESCITALOPRAM OXALATE 10 MG TAB PO SCH (08:00)
[2019-07-18] MEDS: predniSONE 20 MG TAB PO SCH (08:00)
[2019-07-18] MEDS: PANTOprazole 40 MG in SYRINGE 0 ML IV SCH (08:00)
[2019-07-18] MEDS: HydrALAZINE TAB 50 MG TAB PO SCH ×3 (08:00→21:10)
[2019-07-18] MEDS: guaiFENesin 600 MG TABCR PO SCH (08:00)
[2019-07-18] MEDS: CARVEDILOL 12.5 MG TAB PO SCH ×2 (08:00→16:38)
[2019-07-18] MEDS: NYSTATIN SUSP 500,000 U/5 ML UDC PO SCH ×4 (08:01→21:07)
[2019-07-18] MEDS: LEVOTHYROXINE SODIUM 88 MCG TABLET PO SCH (08:01)
[2019-07-18] MEDS ORDERED: POTASSIUM CHLORIDE 10 MEQ TABCR PO STA (10:02)
[2019-07-18] MEDS: COLESTIPOL HCL 5 GM POWDER PACK PO SCH (10:34)
--- NOTE | 2019-07-18 13:51 | Nephrology Progress Note ---
Date of Service July 18, 2019 Assessment & Plan (1) Acute kidney injury: Creatinine stable. Good urine output. Tolerating slightly negative fluid balance. Remains on furosemide 20 mg daily to encourage a negative fluid balance. For anemia, a dose of Epogen was provided yesterday. Eva appropriately has decided to proceed with comfort care. I answered questions. I will not be in the hospital tomorrow but remain available by phone. I told Eva and her daughter to please call with any additional questions or concerns. At this time, I think it is reasonable to continue a low dose intermittent diuretic to encourage a slightly negative fluid balance and help alleviate sy mptoms associated with vascular congestion. Will sign off. Please call with questions or concerns. (2) Hyponatremia: (3) Chronic kidney disease, stage IV (severe): (4) Pulmonary hypertension: Subjective No acute events overnight. Eva was seen and evaluated with her daughter at the bedside this morning. I discussed the plan of care with Dr. Recio. Eva is resolved to transition to comfort care. She plans to proceed with hospice. She is feeling better but remains profoundly weak and dyspneic with minimal activity. No fevers or chills. She denies any evidence of GI bleeding. Review of Systems Review of Systems: All systems reviewed & are unremarkable except as noted in HPI & below Physical Exam Constitutional: + thin and + frail appearing Eyes: no scleral abnormality and no corneal abnormality ENMT: Mouth: no oral mucosal abnormality and oral mucous membranes not dry Neck: normal visual inspection and trachea midline Respiratory: + uses accessory muscles Auscultation: no rales, no rhonchi and no wheezes Cardiovascular: Heart Sounds: normal S1, normal S2 and + murmur Vessels: + JVD Extremities: no edema Gastrointestinal (Abdomen): Percussion/Palpation: abdomen soft; abdomen nontender Musculoskeletal: Extremities: + muscle atrophy and + cyanosis; no clubbing Skin: + turgor decreased; no rashes Neurologic: Motor/Sensory: no tremor and no asterixis Results & Data Vital Signs (Past 12 Hours) Vital Signs Temp Pulse Pulse Pulse Resp BP Pulse Ox 07/18/19 12:30 36.5 C 75 18 164/101 H 94 07/18/19 10:46 72 22 95 07/18/19 08:05 88 07/18/19 07:30 36.7 C 87 18 184/97 H 95 07/18/19 07:10 78 16 97 07/18/19 03:16 36.4 C L 84 20 178/89 H 98 07/18/19 02:57 84 16 98 Laboratory Results Laboratory Results - last 24 hr 07/18/19 05:24 Sodium 124 L Potassium 3.0 L D Chloride 85 L Carbon Dioxide 34 H Anion Gap 5.0 BUN 50 H Creatinine 2.11 H Est Cr Clr Drug Dosing 15.1 Est GFR ( Amer) 25.0 Est GFR (Non-Af Amer) 21.6 BUN/Creatinine Ratio 23.5 H Glucose 80 Calcium 7.8 L Phosphorus 4.7 Albumin 2.5 L PG Care Time/CCT Total # of Minutes Spent Total Time Spent with Patient: Total time spent is greater than 50% in coordination of care (as documented) at patient's floor/unit and/or counseling patient:
--- NOTE | 2019-07-18 15:18 | Hospitalist Progress Note ---
Date of Service July 18, 2019 Assessment & Plan (1) Acute and chronic respiratory failure with hypoxia: Multifactorial - COPD exacerbation, LLL pneumonia, b/l pleural effusions-- all in context of end-stage COPD and severe pulmonary HTN. There was concern for PEs but unable to get CTA chest or V/Q scan; and, she had bleeding on heparin thus heparin stopped 2 days ago. Since we are transitioning to hospice will defer on work-up for PEs. She was on high-flow NC - now transitioned back to standard NC O2. Completed 7-day zosyn course. Was on high-dose IV steroids - weaned to prednisone. Received some diuresis for b/l pleural effusions. We are now transitioning to hospice. Focus on symptom control - roxanol and ativan ordered prn. (2) COPD (chronic obstructive pulmonary disease): with severe exacerbation in context of end-stage emphysema. IV steroids stopped by pulmonary - weaned to prednisone on 07/17. Wean prednisone over 7-10 days. Consider keeping on 5mg/day for appetite and control of COPD while on hospice after wean has been completed. Continue home inhalers Cont scheduled Duonebs (3) Chronic kidney disease, stage IV (severe): Baseline creat 1.6-2. Superimposed GITA this admission - likely ATN. Nephrology had been following. Transitioning to hospice. Stop daily BMPs. (4) Severe protein-calorie malnutrition: ongoing for months extensive w/u prior - pang-CTs, HIDA scan, etc -- nondiagnostic suspected due to severe, end-stage COPD, depression, and - potential for occult malignancy. one of her prior CT scans showed esophageal abnormalities; could easily have esophageal or gastric ca either way transitioning to hospice (5) Acute blood loss anemia: 2 sources - GI (melena stool that was heme+) and soft tissue (spontaneous bleeding into left flank, left thigh, etc). cannot exclude retroperitoneal hemorrhage. systemic heparin was stopped. transitioning to hospice but cont PPI. (6) Heme positive stool: see above in "acute blood loss anemia" (7) D-dimer, elevated: see above CTA was not possible to r/o PE because of CrCL <30 and V/Q not pursued (likely would be nondiagnostic) then, while on systemic heparin, she bled considerably heparin stopped no further Rx or w/u - transitioning to hospice (8) Chest pain: Despite the frequent episodes of chest discomfort this admission her troponin only naheed modestly. Echo w/o LV wall motion abnormalities. Pain could be from PEs, esophageal, LLL pneumonia, or the severe COPD exacerbation itself. Cannot rule out angina from undiagnosed CAD. Simply treat symptoms. Morphine elixir 5mg prn. (9) Pneumonia: LLL. Completed 7 days of zosyn; abx stopped. (10) Acute kidney injury: likely ATN in setting of CKD stage 4. had been slowly improving (11) Elevated troponin: Troponins modestly elevated this admission. Likely myocardial demand ischemia in setting of severe COPD / pneumonia repeat echo w/ normal LV wall motion (12) Hypertension: Recent hospitalization for hypertensive urgency. Blood pressures labile here and at her home. Continue home carvedilol, hydralazine. Consider long-acting nitrates - this could help with frequent chest discomforts and could act as palliative med. (13) Hyponatremia: chronic - baseline low 130s. with acute worsening - likely due to diuretics. despite low Na she is not symptomatic from it. stop serial BMPs. (14) Depression: cont lexapro cont trazodone adding low-dose ativan for anxiety. (15) Hypothyroidism: TSH on recent check wnl cont synthroid (16) Hyperkalemia: 2nd to GITA - resolved (17) Candidiasis of mouth and esophagus: nystatin 5cc qid nearly resolved (18) DVT prophylaxis: due to bleeding and transitioning to hospice all chemical means stopped (19) Poor prognosis: spent considerable time this weekend speaking with pt, son, and daughter regarding options for care patient made herself DNR and has selected hospice son/daughter very supportive of hospice pt lives with daughter locally - uncertain if home with hospice is option she may need SNF placement with hospice dispo planning on Friday palliative care consult placed for Friday as well d/c tele transfer to med/surg Subjective pt resting upon my arrival and attempting to eat some lunch after a few bites she said "I think I'm done with this" during the encounter the patient became dyspneic with attempting to make conversation no new issues overnight daughter at bedside tele overnight wnl Review of Systems Constitutional: no fever Respiratory: + cough and + dyspnea Cardiovascular: + chest pain (occasionally ) Gastrointestinal: + bloating and + early satiety; no abdominal pain Physical Exam Constitutional: + acute distress (some episodes of pursed lip breathing noted during my visit ), + ill appearing, + cachectic and + frail appearing; + not well developed, + not well nourished and no altered mental status ENMT: external ear and nose normal, oropharynx normal Mouth: + oral mucosal abnormality (thrush plaques just about resolved) and + dry oral mucous membranes Respiratory: + respiratory distress (occasionally; pursed lip breathing with tachypnea ) Auscultation: + diminished lung sounds (bases); no crackles and no wheezes Cardiovascular: Rate/Rhythm: regular rate and regular rhythm Heart Sounds: normal S1, normal S2 and + murmur (2/6 LSB) Vessels: posterior tibial pulses present and dorsalis pedis pulses present; no JVD Extremities: no edema Gastrointestinal (Abdomen): normal bowel sounds, soft, nontender, no hepatosplenomegaly Inspection/Auscultation: + abdomen distended (mild) Skin: + ecchymosis (extensive - left flank, left low back, left thigh) Psychiatric: Orientation: alert and oriented x 3 Results & Data Vital Signs (Past 12 Hours) Vital Signs Temp Pulse Pulse Pulse Resp BP Pulse Ox 07/18/19 15:10 36.6 C 80 22 137/69 90 07/18/19 12:30 36.5 C 75 18 164/101 H 94 07/18/19 10:46 72 22 95 07/18/19 08:05 88 07/18/19 07:30 36.7 C 87 18 184/97 H 95 07/18/19 07:10 78 16 97 Laboratory Results Laboratory Results - last 24 hr 07/18/19 05:24 Sodium 124 L Potassium 3.0 L D Chloride 85 L Carbon Dioxide 34 H Anion Gap 5.0 BUN 50 H Creatinine 2.11 H Est Cr Clr Drug Dosing 15.1 Est GFR ( Amer) 25.0 Est GFR (Non-Af Amer) 21.6 BUN/Creatinine Ratio 23.5 H Glucose 80 Calcium 7.8 L Phosphorus 4.7 Albumin 2.5 L PG Care Time/CCT Total # of Minutes Spent Total Time Spent with Patient: Total time spent is greater than 50% in coordination of care (as documented) at patient's floor/unit and/or counseling patient: (1) Depression Depression Type: other depression Qualified Code(s): F32.89 - Other specified depressive episodes (2) Hypothyroidism Hypothyroidism type: acquired Qualified Code(s): E03.9 - Hypothyroidism, unspecified (3) COPD (chronic obstructive pulmonary disease) COPD type: unspecified COPD Qualified Code(s): J44.9 - Chronic obstructive pulmonary disease, unspecified (4) Chest pain Chest pain type: unspecified Qualified Code(s): R07.9 - Chest pain, unspecified (5) Hypertension Hypertension type: essential hypertension Qualified Code(s): I10 - Essential (primary) hypertension (6) Pneumonia Laterality: left Lung location: lower lobe of lung Pneumonia type: due to unspecified organism Qualified Code(s): J18.1 - Lobar pneumonia, unspecified organism
[2019-07-18] MEDS: MoRPHine SULFATE 5 MG/0.25 ML UDP PO PRN (15:38)
[2019-07-18] MEDS: LORazepam 0.5 MG TAB PO PRN (20:47)
[2019-07-18] MEDS: TRAZODONE HCL 50 MG TAB PO SCH (21:12)
[2019-07-18] MEDS: PANTOprazole 40 MG TAB PO SCH (21:14)
[2019-07-19] MEDS: ALBUT/IPRATROP 3MG/0.5MG NEB 3 ML VIAL NEB SCH ×6 (03:20→22:48)
[2019-07-19] MEDS: LEVOTHYROXINE SODIUM 88 MCG TABLET PO SCH (06:32)
[2019-07-19] MEDS: ESCITALOPRAM OXALATE 10 MG TAB PO SCH (08:38)
[2019-07-19] MEDS: predniSONE 20 MG TAB PO SCH (08:38)
[2019-07-19] MEDS: NYSTATIN SUSP 500,000 U/5 ML UDC PO SCH ×4 (08:38→20:41)
[2019-07-19] MEDS: LACTOBACILLUS ACIDOPHILUS (FLORANEX) TAB PO SCH ×3 (08:38→17:58)
[2019-07-19] MEDS: CARVEDILOL 12.5 MG TAB PO SCH ×2 (08:38→17:58)
[2019-07-19] MEDS: HydrALAZINE TAB 50 MG TAB PO SCH ×3 (08:38→20:37)
[2019-07-19] MEDS: PANTOprazole 40 MG TAB PO SCH ×2 (08:39→20:41)
[2019-07-19] MEDS: COLESTIPOL HCL 5 GM POWDER PACK PO SCH (10:36)
[2019-07-19 12:10] LABS: Quantiferon Mitogen-NIL 1.69 IU/ML; Quantiferon NIL 0.02 IU/ML; Quantiferon TB Gold Plus NEGATIVE (NEGATIVE); Quantiferon TB1-NIL 0.01 IU/ML
--- NOTE | 2019-07-19 12:31 | Pulmonology Progress Note ---
Date of Service July 19, 2019 Assessment & Plan (1) Pulmonary cachexia due to chronic obstructive pulmonary disease: Patient began having worsening pulmonary issues beginning November 10, 2018 Lifelong smoker with severe emphysema/COPD Currently dependent on supplemental oxygen Chest x-ray 07/17/2019 shows interval worsening of bibasilar infiltrates. Procalcitonin is negative. There are also small bilateral pleural effusions. At this point patient is at end-stage. Continue steroids as tolerated Discontinue antibiotics Focus on palliation Patient does state that air hunger is improved with small doses of morphine sulfate Discussed case with palliative medicine.They will manage morphine and other palliative meds Anticipate transfer to [facility] for palliative care (2) Acute and chronic respiratory failure with hypoxia: Lifelong smoker Started with oxygen in November 2018 Continue supplemental O2 with SaO2 goal between 88 and 92 Continue focus on palliative care asabove (3) Pneumonia: Imaging revealed worsening bibasilar infiltrates Procalcitonin negative Antibiotics stopped Continue supportive care with palliative goal Laterality: left Lung location: lower lobe of lung Pneumonia type: due to unspecified organism Qualified Code(s): J18.1 - Lobar pneumonia, unspecified organism (4) Bilateral pleural effusion: Moderate pleural effusions on bedside ultrasound on Friday Discussed thoracentesis with patient * It was decided the risk out ways benefit * Continue to focus on palliative care * No invasive treatment Thank you for including us in the care of this patient. At this time we will sign off from the pulmonary service. Please feel free to reconsult as needed. Please refer to Dr. Delatorre's addendum for further recommendations. Subjective Attending: Dr. Delatorre Patient seen at bedside with daughter Tracy (Yo) and palliative care nurse RAFY Crain Patient reports that anxiety has improved regarding her breathing. She co ntinues to have some costophrenic type pain in the left flank as well as a midsternal area. She does not have any acute cough or sputum production. She denies fever, chills, sweats, rigors. She denies any night sweats. She denies any lower extremity swelling or calf pain. She does report a dry mouth at times but no william aspiration. She has no other acute complaints at this time. Review of Systems Review of Systems: All systems reviewed & are unremarkable except as noted in HPI & below Physical Exam Physical Exam: GENERAL : No acute distress. Pursed lip breathing. No use of accessory muscles. EYES: No icterus, gaze conjugate. NOSE: No evidence of epistaxis MOUTH: No lesions or candidiasis NECK: Supple. Positive for JVD. LUNGS: CTA B/L, no wheezes, rales or rhonchi. Breath sounds very diminished. HEART: Regular, rate controlled. No appreciation of ectopy. ABDOMEN: Soft, NT, ND, BS Present EXTREMITIES: No LE edema, pedal pulses intact bilaterally and bounding. NEURO: A&OX3. Positive some hearing loss. Indicates that she has clear understanding of discussion. No other focal deficits. Results & Data Vital Signs (Past 12 Hours) Vital Signs Temp Pulse Resp BP Pulse Ox 07/19/19 07:13 36.6 C 87 20 160/86 H 92 07/19/19 07:03 79 22 94 07/19/19 03:20 81 16 98 Laboratory Results 07/17/19 05:27 07/18/19 05:24 PG Care Time/CCT Total # of Minutes Spent Total Time Spent with Patient: Total time spent is greater than 50% in coordination of care (as documented) at patient's floor/unit and/or counseling patient:
[2019-07-19] MEDS: MoRPHine SULFATE 5 MG/0.25 ML UDP PO PRN (13:35)
[2019-07-19] MEDS ORDERED: MoRPHine SULFATE 5 MG/0.25 ML UDP PO PRN (14:12)
[2019-07-19] MEDS: LORazepam 0.5 MG TAB PO PRN (14:24)
--- NOTE | 2019-07-19 14:29 | Palliative Care Consultation ---
Date of Consultation July 19, 2019 Assessment & Plan (1) Goals of care, counseling/discussion: This patient is an 78 year old female who presented to the hospital with chest tightness, poor appetite, and shortness of breath that was occurring x 3 days. Additional PMH includes COPD, pHTN, Depression, HTN, CKD IV, Breast CA, AAA. Her COPD is multi-factorial with complicating factors including LLL pneumonia, small bilateral pleural effusions and her 60 pack year smoking history. The patient states she has abstained from smoking since November 2018. Additionally, she has lost over 20 lbs over the past 8 months unintentionally. Nephrology and Pulmonology have been consulted and assisting with management of this patients symptoms. The patient does have multi-organ failure including end- stage COPD, CHF and kidney failure. She has received diuresis and IV antibiotics. At this time, the plural effusions are not large enough for a thoracentesis/pleur-x catheter placement. One CT that was obtained showed some esophageal abnormalities that at this time will not have further work up. Lengthy conversations were held over the weekend regarding end of life and hospice care. The patient did change her code status to DNR.DNI and has selected to pursue hospice. Palliative Care was consulted to discuss goals of care. -I met initially with the patient by herself and then later was joined by her daughter (LUIS MIGUEL) Carole Camacho". Pt son, Luther, was on speaker phone for a portion of the visit (he lives in [place]). Bunny Tejeda PA-C was present for a portion of our encounter as well. -The patient stated that she felt that she could breath a little bit easier, but gets winded quickly with movement. The patient is receiving supplemental O2 and has at home since November 2018. -She stated that -In speaking about what brings her andreas, she stated that she is very spiritual and wants to be surrounded by those who support that. She also stated that she enjoys reading, caring for others, and sitting on her back porch while looking at the black-eyed tara rice in her yard. She does not like watching television. 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 -Confirmed her code status to remain DNR.DNI. -Patient expressed wanting to know more about hospice. We discussed hospice at home vs hospice at a nursing facility. Both daughter and pt would like to pursue hospice at a nursing facility. -Confirmed they would not like to be evaluated for skilled services. -Daughter expressed interest in [facility], [facility], [facility] and [facility]. Case management made aware and will place referrals. -Additionally a hospice list was provided by Case Management and she also would like to entertain private care companionship at said facility. Case management working on all discharge plans. -Patient severely cachectic and feels like she doesnt want to eat and is ok with that. She did eat a delicious chocolate chip cookie when I was in the room. -Over the weekend, Roxanol and Ativan 0.25mg IV Q 6hours were started. One dose of Ativan given overnight and one dose of Roxanol this morning. -Plan for scheduling Roxanol daily (patient wants to start low) and allow Roxano l 5mg/mL to be given Q2h PRN for air hunger and pain. Low threshold for scheduling Roxanol BID as needed. -Lengthy discussion for how Roxanol works and how it assists with air hunger. -Patient was clear she would like to STOP all blood draws and monitoring. She is comfortable continuing current medications. Confirmed no escalation of care. -A POLST form was completed indicating DNR.DNI, comfort measures only, trial abx, and no artificial nutrition/hydration. -PPS: 30% (2) Acute and chronic respiratory failure with hypoxia: (3) Pulmonary cachexia due to chronic obstructive pulmonary disease: (4) Severe protein-energy malnutrition: (5) Renal failure (ARF), acute on chronic: Supervising Physician Co-Signing Physician Notes Chart reviewed, patient seen and examined. Collaborated with RAFY Dodd No family at bedside during my exam PE: Patient awake and alert, mild respiratory distress with speech HEENT: EOMI, mild [place] CV: Regular rate Abdomen, nondistended Neuro: Alert and oriented x4 Agree with above note, assessment and plan as per RAFY Dodd. Will continue to follow and assist patient and family with medical decision making. Discussed goals of care as well as plan of care at length with patient. History of Present Illness Reason for Consultation: Goals of care Requesting Physician: Dr. Britt Attending Physician: Coy Britt DO History of Present Illness This patient is an 78 year old female who presented to the hospital with chest tightness, poor appetite, and shortness of breath that was occurring x 3 days. Additional PMH includes COPD, pHTN, Depression, HTN, CKD IV, Breast CA, AAA. Her COPD is multi-factorial with complicating factors including LLL pneumonia, small bilateral pleural effusions and her 60 pack year smoking history. The patient states she has abstained from smoking since November 2018. Additionally, she has lost over 20 lbs over the past 8 months unintentionally. Nephrology and Pulmonology have been consulted and assisting with management of this patients symptoms. The patient has had multiple recent hospitalization. Lengthy conversations were held over the weekend regarding end of life and hospice care. The patient did change her code status to DNR.DNI and has selected to pursue hospice. Palliative Care was consulted to discuss goals of care. Please see A/P for further details. Thank you kindly for involving the Palliative Care Team. We will continue to assist with decision making. Allergies Allergy/AdvReac Type Severity Reaction Status Date / Time morphine Allergy Severe Hypotension Verified 07/11/19 13:17 Mdyjkvd-Wla-Biy Reductase Allergy Severe Unknown Verified 07/11/19 13:17 Inhibitor Home Medications Home Medications Medication Instructions Recorded Confirmed Type Bevespi Aerosphere 2 puff INHALATION BID 03/10/19 07/11/19 History levothyroxine 88 mcg PO QAM 03/10/19 07/11/19 History ranitidine HCl [Zantac] 150 mg PO DAILY PRN 03/10/19 07/11/19 History alendronate 70 mg PO WK 03/27/19 07/11/19 History ipratropium-albuterol 3 ml INHALATION QID 03/27/19 07/11/19 History cetirizine [Zyrtec] 10 mg PO DAILY PRN 06/04/19 07/11/19 History colestipol 5 g PO DAILY 06/04/19 07/11/19 History ergocalciferol (vitamin D2) 50,000 unit PO WK 06/04/19 07/11/19 History [Vitamin D2] nicotine (polacrilex) [Nicorette] 2 mg BUCCAL Q3H PRN 06/04/19 07/11/19 History potassium chloride 20 meq PO BID 06/04/19 07/11/19 History trazodone 50 mg PO HS 06/04/19 07/11/19 History carvedilol 6.25 mg PO BID #60 tab 06/07/19 07/11/19 Rx escitalopram oxalate 10 mg PO QAM #30 tab 06/07/19 07/11/19 Rx tramadol 50 mg PO TID PRN #20 tab 06/07/19 07/11/19 Rx hydralazine 50 mg tablet 50 mg PO TID #90 tab 06/17/19 07/11/19 Rx Patient History Medical History Chronic kidney disease, stage IV (severe) Depression (Chronic) Headache (Chronic) COPD (chronic obstructive pulmonary disease) (Chronic) Hypothyroidism (Chronic) Renal artery stenosis (Chronic) History of hysterectomy Hypertension (Chronic) Dyslipidemia (Chronic) Breast cancer (Resolved) Pulmonary embolism (Resolved) Surgical History H/O mastectomy H/O abdominal aortic aneurysm repair History of right hip replacement Family History Father Myocardial infarction Social History Preferred Language: [place] Communication Ability: Effective Draw Furnace Tender Required: No Beliefs That Will Affect Care: None Current Living Situation: Family Current Living Situation Comment: Lives with daughter Feels Safe at Home: Yes Smoking Status: Former smoker Tobacco Type: cigarettes ; Cigarettes Per Day: 20 ; Second Hand Exposure: No ; Hx Alcohol Use: No Hx Substance Use: No Review of Systems Review of Systems: All systems reviewed & are unremarkable except as noted in HPI & below Physical Exam Constitutional: + ill appearing, + cachectic and + in distress Respiratory: + uses accessory muscles, + cough and + pursed lip breathing Auscultation: + crackles (posteriorly ) and + wheezes Cardiovascular: RRR, no murmur, no edema Gastrointestinal (Abdomen): normal bowel sounds, soft, nontender, no hepatosplenomegaly Skin: + rash (right hand) and + ecchymosis (on left arm) Psychiatric: A+Ox3, euthymic affect Genitourinary: indwelling rivera catheter Lymphatic: no cervical or axillary lymphadenopathy Results & Data Vital Signs (Past 12 Hours) Vital Signs Temp Pulse Resp BP Pulse Ox 07/19/19 07:13 36.6 C 87 20 160/86 H 92 07/19/19 07:03 79 22 94 07/19/19 03:20 81 16 98 PG Care Time/CCT Total # of Minutes Spent Total Time Spent with Patient: Total time spent is greater than 50% in coordination of care (as documented) at patient's floor/unit and/or counseling patient: 125 Prolonged Care Time Prolonged Care Time: Yes Total Prolonged Care Time: 125 Time Spent Midlevel Total time spent 125 mintues with > 50% of that time spent assessing the patient, discussing goals of care with patient and her children, providing symptom management, and completing a POLST form with the patient. Attending Spent 25 minutes in addition to the 125 minutes spent by CRP for a total of 150 minutes with greater than 50% of the time spent at bedside discussing goals of care
[2019-07-19] MEDS: MoRPHine SULFATE 5 MG/0.25 ML UDP PO SCH (14:47)
[2019-07-19] MEDS ORDERED: LORazepam 0.5 MG TAB PO PRN (17:09)
[2019-07-19] MEDS: TRAZODONE HCL 50 MG TAB PO SCH (20:41)
--- NOTE | 2019-07-19 21:34 | Hospitalist Progress Note ---
Date of Service July 19, 2019 Assessment & Plan (1) Acute and chronic respiratory failure with hypoxia: - Multifactorial - COPD Exacerbation, LLL Pneumonia, B/L Pleural Effusions - all in setting of end-stage COPD/pulmonary HTN - Concern for PEs given presentation and elevated D-Dimer however unable to get CTA or V/Q - she had significant ecchymosis/bleeding on heparin and this was stopped - transitioning to hospice and defer further workup - Currently maintaining on O2 via NC at 3 L - Zosyn therapy completed for pneumonia and weaning Prednisone -- Plan to wean Prednisone over next week - could consider low dose (5 mg daily) - this may give some chronic control of COPD and help with appetite - Continue inhalers and Duonebs - Air hunger control with Roxanol and Ativan - frequency of Roxanol increased but can consider dosing increase in AM as she reports it doesn't seem to be doing much; will increase Ativan to 0.5 mg and monitor for sedation - will continue to address this as she is converting to hospice services Present on Admission?: Yes (2) COPD (chronic obstructive pulmonary disease): - Treatment as above Present on Admission?: Yes (3) Pneumonia: - Treatment as above Present on Admission?: Yes (4) Acute blood loss anemia: - Suspect 2 sources - GI with presence of melena a heme + testing and soft tissue from spontaneous bleed while on systemic heparin which has been D/Cd - Will continue Protonix 40 mg BID - no further invasive work-up at this time Present on Admission?: Yes (5) Chronic kidney disease, stage IV (severe): - Baseline at 1.6-2 - superimposed GITA on admission likely ATN - No further blood draws due to hospice conversion - Nephrology following and S/O Present on Admission?: Yes (6) Severe protein-calorie malnutrition: - Ongoing issue - multifactorial - had multiple testing as outpatient which has been nondiagnostic - Likely related to end-stage COPD as she reports eating is tough to do related to breathing, depression?, occult malignancy? - no further workup Present on Admission?: Yes (7) Chest pain: - Currently resolved - only mild elevation during admission of troponin- suspected myocardial demand ischemia in setting of end-stage COPD/PNA - Echo without LV wall motion abnormalities - Current plan is management with Roxanol/Ativan and other palliative measures Present on Admission?: Yes (8) Hypertension: - Had recent hypertensive urgency - BP have been labile but she remains asymptomatic - Continue Carvedilol 12.5 mg BID and Hydralazine 100 mg TID; could consider long-acting nitrates if ongoing chest discomfort Present on Admission?: Yes (9) Hyponatremia: - Chronic - baseline in low 130s - asymptomatic and no further blood draws - Could consider PRN Lasix if fluid balance continues to be an issue to promote comfort Present on Admission?: Yes (10) Depression: - Continue Lexapro and Trazadone; PRN Ativan - She appears to be licking her lips frequently today but states she does feel that her mouth/lips are dry however also notes she doesn't realize shes really doing it - Trazadone isn't a common cause of tardive dyskinesia but if this doesn't improve with moisturizing lips/mouth may need to address Present on Admission?: Yes (11) Hypothyroidism: - STABLE - Continue Levothyroxine 88 mcg daily Present on Admission?: Yes (12) Candidiasis of mouth and esophagus: - Nystatin QID (13) Poor prognosis: - Patient is at end-stage COPD - planning on hospice conversion and currently DNR/DNI - Discussed with patient and daughter at bedside - daughter plans to look at SNFs tomorrow with plans to go to SNF with hospice services - D/C pending arrangements and would be medically suitable at that time Subjective Continues to have air hunger but reports this has improved since admission. On reassessment this afternoon she states she does not feel the Roxanol is doing much for her and did discuss dosing adjustments. The frequency was adjusted so will not increase dose just yet but may need to consider this. Will increase the Ativan and monitor for sedation. She does endorse a chronic issue with anxiety which now is worsened by the air hunger. She can converse but does need to stop after a few words and requires pursed-lip breathing. Review of Systems Constitutional: no fever and no chills Respiratory: + cough and + dyspnea Cardiovascular: no chest pain, no palpitations and no lightheadedness Gastrointestinal: no abdominal pain, no nausea, no vomiting, no constipation and no diarrhea/loose stools Musculoskeletal: no joint pain and no body aches Physical Exam Constitutional: + acute distress (intermittent pursed lip breathing), + cachectic and + frail appearing Eyes: + anicteric sclerae ENMT: Ears: + hearing impairment (mild) Neck: trachea midline Respiratory: + respiratory distress (pursed lip breathing - needs to stop talking after 4-5 words to purse-lip) and + cough Auscultation: + diminished lung sounds Cardiovascular: Rate/Rhythm: regular rate and regular rhythm Heart Sounds: + murmur Gastrointestinal (Abdomen): Inspection/Auscultation: normal bowel sounds Percussion/Palpation: abdomen soft; abdomen nontender Musculoskeletal: Head/Neck/Chest: normocephalic and head atraumatic Skin: Ecchymosis noted on L thigh but appears to be healing; frail/thin skin diffusely with foam padding placed Neurologic: moves all extremities Psychiatric: A+Ox3, euthymic affect Results & Data Vital Signs (Past 12 Hours) Vital Signs Temp Pulse Resp BP Pulse Ox 07/19/19 18:55 78 18 96 07/19/19 15:22 36.7 C 76 21 165/94 H 98 07/19/19 14:57 81 19 98 PG Care Time/CCT Total # of Minutes Spent Total Time Spent with Patient: Total time spent is greater than 50% in coordination of care (as documented) at patient's floor/unit and/or counseling patient: (1) COPD (chronic obstructive pulmonary disease) COPD type: unspecified COPD Qualified Code(s): J44.9 - Chronic obstructive pulmonary disease, unspecified (2) Chest pain Chest pain type: unspecified Qualified Code(s): R07.9 - Chest pain, unspecified (3) Pneumonia Laterality: left Lung location: lower lobe of lung Pneumonia type: due to unspecified organism Qualified Code(s): J18.1 - Lobar pneumonia, unspecified organism (4) Hypertension Hypertension type: essential hypertension Qualified Code(s): I10 - Essential (primary) hypertension (5) Depression Depression Type: other depression Qualified Code(s): F32.89 - Other specified depressive episodes (6) Hypothyroidism Hypothyroidism type: acquired Qualified Code(s): E03.9 - Hypothyroidism, unspecified
[2019-07-19] MEDS: HYDROCORTISONE 1% CRM 30 GM TUBE EXT PRN (21:43)
[2019-07-20] MEDS: ALBUT/IPRATROP 3MG/0.5MG NEB 3 ML VIAL NEB SCH ×6 (02:51→23:17)
[2019-07-20] MEDS: LEVOTHYROXINE SODIUM 88 MCG TABLET PO SCH (07:10)
[2019-07-20] MEDS: HYDROCORTISONE 1% CRM 30 GM TUBE EXT PRN ×2 (07:12→19:36)
[2019-07-20] MEDS: CARVEDILOL 12.5 MG TAB PO SCH ×2 (08:38→17:36)
[2019-07-20] MEDS: ESCITALOPRAM OXALATE 10 MG TAB PO SCH (08:39)
[2019-07-20] MEDS: predniSONE 20 MG TAB PO SCH (08:39)
[2019-07-20] MEDS: HydrALAZINE TAB 50 MG TAB PO SCH ×3 (08:39→20:49)
[2019-07-20] MEDS: LACTOBACILLUS ACIDOPHILUS (FLORANEX) TAB PO SCH ×3 (08:39→17:36)
[2019-07-20] MEDS: NYSTATIN SUSP 500,000 U/5 ML UDC PO SCH ×4 (08:39→20:49)
[2019-07-20] MEDS: PANTOprazole 40 MG TAB PO SCH ×2 (08:39→20:49)
[2019-07-20] MEDS: MoRPHine SULFATE 5 MG/0.25 ML UDP PO SCH ×2 (08:40→20:49)
[2019-07-20] MEDS: COLESTIPOL HCL 5 GM POWDER PACK PO SCH (09:28)
[2019-07-20] MEDS ORDERED: COUGH DROP (SUGAR FREE) LOZ 24 LOZ/1 BOX BUCCAL PRN (14:02)
[2019-07-20] MEDS ORDERED: MoRPHine SULFATE 10 MG/0.5 ML UDP PO PRN (14:07)
--- NOTE | 2019-07-20 17:56 | Palliative Care Progress Note ---
Date of Service July 20, 2019 Assessment & Plan (1) Goals of care, counseling/discussion: Patient is an 78 year old female who presented to the hospital 0n 07/11 with chest tightness, poor appetite, and shortness of breath x 3 days. Additional PMH includes COPD, pHTN, Depression, HTN, CKD IV, Breast CA, AAA. Her COPD is multi-factorial with complicating factors including LLL pneumonia, small bilateral pleural effusions and her 60 pack year smoking history. The patient states she has abstained from smoking since November 2018. Additionally, she has lost over 20 lbs over the past 8 months unintentionally. Nephrology and Pulmonology have been consulted and assisting with management of this patients symptoms. The patient does have multi-organ failure including end-stage COPD, CHF and kidney failure. She has received diuresis and IV antibiotics. At this time, the plural effusions are not large enough for a thoracentesis/pleur-x catheter placement. Several lengthy discussions regarding end of life and hospice care. The patient did change her code status to DNR.and has elected to pursue hospice. Patient seen in follow-up along with her daughter to answer any questions regarding plan of care and discuss hospice care. Patient and daughter have not yet chosen a hospice agency-they are planning to transfer to [facility] under hospice care. Patient does not want to pursue rehab as this would only cause increased fatigue. Patient gets very short of breath and fatigued with transfer to bedside commode. -I met with patient and her daughter (LUIS MIGUEL) Carole "Forest". -The patient stated that she felt that she could breath a little bit easier after receiving Roxanol 7.5 mg, but gets winded quickly with movement or prolonged conversation. -Confirmed her code status to remain DNR. -Patient expressed wanting to know more about hospice. We discussed hospice at a nursing facility. Both daughter and pt would like to pursue hospice at a nursing facility-preference would be [facility]. -Confirmed they would not like to be evaluated for skilled services. -Daughter would like to entertain private care companionship at said facility. Case management working on all discharge plans. -Patient severely cachectic and feels that eating is difficult with her shortness of breath-gave patient a sample of LiquaCell supplement which is higher in protein than boost and a much smaller volume -A POLST form was completed indicating DNR.DNI, comfort measures only, trial abx, and no artificial nutrition/hydration. -PPS: 30% Will continue to follow and assist both patient and daughter with medical decision making and provide support. Subjective Met with patient along with her daughter at bedside. Patient and daughter with multiple questions regarding hospice and hospice care. Daughter asking questions about prison including rehab, etc. Patient awake and alert, appears more comfortable-patient had just recently received Roxanol at 7.5 mg-patient did report this seems to alleviate her air hunger better than the 5 mg dose although it is more sedating for her. Discussed with patient and daughter using differing doses of Roxanol depending on patient's symptoms and desire for clear cognition, discussed additive effect of Ativan with the Roxanol to help relieve anxiety associated shortness of breath. Review of Systems Review of Systems: Patient denies fever, chills, increased shortness of breath, chest pain or abdominal pain Physical Exam Physical Exam: PE: Alert and oriented, slightly drowsy due to recent Roxanol dosing HEENT: EOMI, hearing within normal limits Respirations: Less labored with PRN Roxanol dosing CV: Regular rate Abdomen: Not distended Extremities: Cachectic, well-perfused Neuro: Alert and oriented x4 Psych: Appropriate mood and affect Results & Data Vital Signs (Past 12 Hours) Vital Signs Temp Pulse Resp BP Pulse Ox 07/20/19 17:31 76 141/82 H 07/20/19 15:26 98.1 F 73 20 139/84 94 07/20/19 11:08 20 90 07/20/19 07:27 144/80 H 07/20/19 06:37 98.1 F 83 18 161/92 H 98 PG Care Time/CCT Total # of Minutes Spent Total Time Spent with Patient: Total time spent is greater than 50% in coordination of care (as documented) at patient's floor/unit and/or counseling patient: Prolonged Care Time Prolonged Care Time: Yes Total Prolonged Care Time: 30 Time Spent Attending Total time spent 65 minutes with 100% of the time spent at bedside discussing treatment options as well as goals of care. Critical Care Time Prolonged Care Time Prolonged Care Time: Yes Total Prolonged Care Time: 30 65
--- NOTE | 2019-07-20 19:19 | Hospitalist Progress Note ---
Date of Service July 20, 2019 Assessment & Plan (1) Acute and chronic respiratory failure with hypoxia: - Multifactorial - COPD Exacerbation, LLL Pneumonia, B/L Pleural Effusions - all in setting of end-stage COPD/pulmonary HTN - Concern for PEs given presentation and elevated D-Dimer however unable to get CTA or V/Q - she had significant ecchymosis/bleeding on heparin and this was stopped - transitioning to hospice and defer further workup - Currently maintaining on O2 via NC at 3 L - Zosyn therapy completed for pneumonia and weaning Prednisone -- Plan to wean Prednisone over next week - could consider low dose (5 mg daily) - this may give some chronic control of COPD and help with appetite - Continue inhalers and Duonebs - Air hunger control with Roxanol and Ativan - will trial Roxanol 5 mg BID GERONIMO with 7.5 mg PRN as she reports not much improvement with 5 mg dosing but wanting to avoid sedation; will continue Ativan to 0.5 mg and monitor for sedation - will continue to address this as she is converting to hospice services (2) COPD (chronic obstructive pulmonary disease): - Treatment as above (3) Pneumonia: - Treatment as above (4) Acute blood loss anemia: - Suspect 2 sources - GI with presence of melena a heme + testing and soft tissue from spontaneous bleed while on systemic heparin which has been D/Cd - Will continue Protonix 40 mg BID - no further invasive work-up at this time (5) Chronic kidney disease, stage IV (severe): - Baseline at 1.6-2 - superimposed GITA on admission likely ATN - No further blood draws due to hospice conversion - Nephrology following and S/O (6) Severe protein-calorie malnutrition: - Ongoing issue - multifactorial - had multiple testing as outpatient which has been nondiagnostic - Likely related to end-stage COPD as she reports eating is tough to do related to breathing, depression?, occult malignancy? - no further workup (7) Chest pain: - Currently resolved - only mild elevation during admission of troponin- suspected myocardial demand ischemia in setting of end-stage COPD/PNA - Echo without LV wall motion abnormalities - Current plan is management with Roxanol/Ativan and other palliative measures (8) Hypertension: - Had recent hypertensive urgency - BP have been labile but she remains asymptomatic - Continue Carvedilol 12.5 mg BID and Hydralazine 100 mg TID; could consider long-acting nitrates if ongoing chest discomfort (9) Hyponatremia: - Chronic - baseline in low 130s - asymptomatic and no further blood draws - Could consider PRN Lasix if fluid balance continues to be an issue to promote comfort (10) Depression: - Continue Lexapro and Trazadone; PRN Ativan - She appears to be licking her lips frequently today but states she does feel that her mouth/lips are dry however also notes she doesn't realize shes really doing it - Trazadone isn't a common cause of tardive dyskinesia but if this doesn't improve with moisturizing lips/mouth may need to address - Try Biotin and Lozenges (11) Hypothyroidism: - STABLE - Continue Levothyroxine 88 mcg daily (12) Candidiasis of mouth and esophagus: - Nystatin QID (13) Poor prognosis: - Patient is at end-stage COPD - planning on hospice conversion and currently DNR/DNI - Planning on SNF with hospice - can D/C pending arrangements Subjective Reports feeling more comfortable with positioning today. Still with air hunger and did trial higher dosing at 7.5 mg PRN and GERONIMO dosing at 5 mg to try and balance symptoms. She does report some confusion this morning as she thought she was back in her room on the 2nd floor and was worried she wondered off however states she felt calm when the nurses reminded her she was on the 4th floor. She does report some forgetfulness at home and states she has sometimes left the faucet running and the stove burning. She verbalizes no new complaints but focus of getting better control of air hunger. States she tries to exhale and count to 7 to help force air out. Reports some slight improvement with itching which could be opiate induced? Review of Systems Constitutional: no fever and no chills Ear, Nose, Mouth, Throat: + dry mouth Respiratory: + cough and + dyspnea Cardiovascular: no chest pain Gastrointestinal: no abdominal pain, no nausea and no vomiting Genitourinary: no dysuria Psychiatric: + anxiety Physical Exam Constitutional: + acute distress (intermittent pursed lip breathing), + cachectic and + frail appearing Eyes: + anicteric sclerae ENMT: Ears: + hearing impairment (mild) Neck: trachea midline Respiratory: + respiratory distress (pursed lip breathing - needs to stop talking after 4-5 words to purse-lip) and + cough Auscultation: + diminished lung sounds Cardiovascular: Rate/Rhythm: regular rate and regular rhythm Heart Sounds: + murmur Gastrointestinal (Abdomen): Inspection/Auscultation: normal bowel sounds Percussion/Palpation: abdomen soft; abdomen nontender Musculoskeletal: Head/Neck/Chest: normocephalic and head atraumatic Neurologic: moves all extremities Psychiatric: A+Ox3, euthymic affect Results & Data Vital Signs (Past 12 Hours) Vital Signs Temp Pulse Resp BP Pulse Ox 07/20/19 17:31 76 141/82 H 07/20/19 15:26 36.7 C 73 20 139/84 94 07/20/19 11:08 20 90 07/20/19 07:27 144/80 H PG Care Time/CCT Total # of Minutes Spent Total Time Spent with Patient: Total time spent is greater than 50% in coordination of care (as documented) at patient's floor/unit and/or counseling patient: (1) COPD (chronic obstructive pulmonary disease) COPD type: unspecified COPD Qualified Code(s): J44.9 - Chronic obstructive pulmonary disease, unspecified (2) Pneumonia Laterality: left Lung location: lower lobe of lung Pneumonia type: due to unspecified organism Qualified Code(s): J18.1 - Lobar pneumonia, unspecified organism (3) Chest pain Chest pain type: unspecified Qualified Code(s): R07.9 - Chest pain, unspecified (4) Hypertension Hypertension type: essential hypertension Qualified Code(s): I10 - Essential (primary) hypertension (5) Depression Depression Type: other depression Qualified Code(s): F32.89 - Other specified depressive episodes (6) Hypothyroidism Hypothyroidism type: acquired Qualified Code(s): E03.9 - Hypothyroidism, unspecified
[2019-07-20] MEDS: TRAZODONE HCL 50 MG TAB PO SCH (20:49)
[2019-07-21] MEDS: ALBUT/IPRATROP 3MG/0.5MG NEB 3 ML VIAL NEB SCH ×6 (03:29→23:21)
[2019-07-21] MEDS: LEVOTHYROXINE SODIUM 88 MCG TABLET PO SCH (06:29)
[2019-07-21] MEDS ORDERED: predniSONE 20 MG TAB PO SCH (09:00)
--- NOTE | 2019-07-21 09:49 | Palliative Care Progress Note ---
Date of Service July 21, 2019 Assessment & Plan (1) Goals of care, counseling/discussion: Patient is an 78 year old female who presented to the hospital 0n 07/11 with chest tightness, poor appetite, and shortness of breath x 3 days. Additional PMH includes COPD, pHTN, Depression, HTN, CKD IV, Breast CA, AAA. Her COPD is multi-factorial with complicating factors including LLL pneumonia, small bilateral pleural effusions and her 60 pack year smoking history. The patient states she has abstained from smoking since November 2018. Additionally, she has lost over 20 lbs over the past 8 months unintentionally. Nephrology and Pulmonology have been consulted and assisting with management of this patients symptoms. The patient does have multi-organ failure including end-stage COPD, CHF and kidney failure. She has received diuresis and IV antibiotics. At this time, the plural effusions are not large enough for a thoracentesis/pleur-x catheter placement. Several lengthy discussions regarding end of life and hospice care. The patient did change her code status to DNR.and has elected to pursue hospice. Patient seen in follow-up along with her daughter to answer any questions regarding plan of care and discuss hospice care. Patient and daughter have not yet chosen a hospice agency-they are planning to transfer to [facility] under hospice care. Patient does not want to pursue rehab as this would only cause increased fatigue. Patient gets very short of breath and fatigued with transfer to bedside commode. -I met with patient. -The patient stated that she felt that she could breath a little bit easier after receiving Roxanol 7.5 mg, but gets winded quickly with movement or prolonged conversation. -Air hunger seems to have improved compared to Friday, but still using pursed lip breathing. Encourage staff to provide PRN Roxanol. -Patient more lethargic today compared to 48 hours ago, did not initially remember our conversation from Friday when she was more alert. -Confirmed her code status to remain DNR. -Confirmed they would not like to be evaluated for skilled services. -A POLST form was completed indicating DNR.DNI, comfort measures only, trial abx, and no artificial nutrition/hydration. -Case management working on discharge plans to [facility] with Hospice services, as of today, a Hospice agency has not been chosen. -PPS: 20% Subjective Patient resting when I entered the room. Opened eyes to verbal stimuli. patient states she feels more comfortable, feels her appetite remains poor and is sleeping more see a/p for further details. Review of Systems Review of Systems: Patient denies fever, chills, increased shortness of breath, chest pain or abdominal pain Physical Exam Constitutional: + ill appearing, + cachectic and + in distress Respiratory: + uses accessory muscles, + cough and + pursed lip breathing Auscultation: + crackles (posteriorly ) and + wheezes Cardiovascular: RRR, no murmur, no edema Gastrointestinal (Abdomen): normal bowel sounds, soft, nontender, no hepatosplenomegaly Skin: + rash (right hand) and + ecchymosis (on left arm) Psychiatric: A+Ox3, euthymic affect Lymphatic: no cervical or axillary lymphadenopathy Results & Data Vital Signs (Past 12 Hours) Vital Signs Temp Pulse Resp BP Pulse Ox 07/21/19 07:21 36.3 C L 78 20 155/80 H 94 07/21/19 07:19 76 22 97 07/20/19 23:19 79 18 94 07/20/19 22:54 36.5 C 71 17 149/83 H 98 PG Care Time/CCT Total # of Minutes Spent Total Time Spent with Patient: Total time spent is greater than 50% in coordination of care (as documented) at patient's floor/unit and/or counseling patient: 35 Time Spent Midlevel total time spent 35 minutes with > 50% of that time spent assessing the patient and discussing goals of care/symptom management
[2019-07-21] MEDS: MoRPHine SULFATE 5 MG/0.25 ML UDP PO SCH (09:51)
[2019-07-21] MEDS: ESCITALOPRAM OXALATE 10 MG TAB PO SCH (09:52)
[2019-07-21] MEDS: CARVEDILOL 12.5 MG TAB PO SCH ×2 (09:52→17:00)
[2019-07-21] MEDS: PANTOprazole 40 MG TAB PO SCH ×3 (09:52→22:18)
[2019-07-21] MEDS: HydrALAZINE TAB 50 MG TAB PO SCH ×3 (09:53→22:18)
[2019-07-21] MEDS: COLESTIPOL HCL 5 GM POWDER PACK PO SCH (09:53)
[2019-07-21] MEDS: LACTOBACILLUS ACIDOPHILUS (FLORANEX) TAB PO SCH ×2 (09:53→13:16)
[2019-07-21] MEDS: NYSTATIN SUSP 500,000 U/5 ML UDC PO SCH ×2 (09:53→14:20)
[2019-07-21] MEDS: HYDROCORTISONE 1% CRM 30 GM TUBE EXT PRN (09:54)
[2019-07-21] MEDS ORDERED: MoRPHine SULFATE 10 MG/0.5 ML UDP PO PRN ×2 (15:13→16:48)
[2019-07-21] MEDS ORDERED: KETOROLAC TROMETHAMINE 15 MG/ML VIAL IV ONE (15:14)
--- NOTE | 2019-07-21 16:26 | Hospitalist Progress Note ---
Date of Service July 21, 2019 Assessment & Plan (1) Acute and chronic respiratory failure with hypoxia: - Multifactorial - COPD Exacerbation, LLL Pneumonia, B/L Pleural Effusions - all in setting of end-stage COPD/pulmonary HTN - Concern for PEs given presentation and elevated D-Dimer however unable to get CTA or V/Q - she had significant ecchymosis/bleeding on heparin and this was stopped - on hospice and defer further workup - Currently maintaining on O2 via NC at 3 L - Zosyn therapy completed for pneumonia and weaning Prednisone -- Plan to wean Prednisone over next week - could consider low dose (5 mg daily) - this may give some chronic control of COPD and help with appetite - will taper further for tomorrow - Continue inhalers and Duonebs - Air hunger control with Roxanol and Ativan - reporting improvement in air hunger but more confusion/delirium//agitation - will go back to Roxanol 5 mg daily GERONIMO and 5 mg PRN but could consider 7.5 mg PRN for when more symptoms present - suspect given her renal failure she could be accumulating and it is causing itching -- Could add Benadryl when not lethargic to assist with pruritus - Palliative care following - discussed with Adri - appreciate assistance (2) COPD (chronic obstructive pulmonary disease): - Treatment as above (3) Pneumonia: - Treatment as above (4) Acute blood loss anemia: - Suspect 2 sources - GI with presence of melena a heme + testing and soft tissue from spontaneous bleed while on systemic heparin which has been D/Cd - Will continue Protonix 40 mg BID - no further invasive work-up at this time (5) Chronic kidney disease, stage IV (severe): - Baseline at 1.6-2 - superimposed GITA on admission likely ATN - No further blood draws due to hospice conversion - Nephrology following and S/O (6) Severe protein-calorie malnutrition: - Ongoing issue - multifactorial - had multiple testing as outpatient which has been nondiagnostic - Likely related to end-stage COPD as she reports eating is tough to do related to breathing, depression?, occult malignancy? - no further workup (7) Chest pain: - Currently resolved - only mild elevation during admission of troponin- suspected myocardial demand ischemia in setting of end-stage COPD/PNA - Echo without LV wall motion abnormalities - Current plan is management with Roxanol/Ativan and other palliative measures (8) Hypertension: - Had recent hypertensive urgency - BP have been labile but she remains asymptomatic - Continue Carvedilol 12.5 mg BID and Hydralazine 100 mg TID; could consider long-acting nitrates if ongoing chest discomfort for palliation (9) Hyponatremia: - Chronic - baseline in low 130s - asymptomatic and no further blood draws - Could consider PRN Lasix if fluid balance continues to be an issue to promote comfort (10) Depression: - Continue Lexapro and Trazadone; PRN Ativan - Try Biotin and Lozenges (11) Hypothyroidism: - STABLE - Continue Levothyroxine 88 mcg daily (12) Candidiasis of mouth and esophagus: - RESOLVED (13) Poor prognosis: - Patient is at end-stage COPD - planning on hospice and currently DNR/DNI - Planning on SNF with hospice - can D/C pending arrangements Subjective Patient appears more uncomfortable today compared to previous visits. She appears more delirious and agitated but is grimacing and possibly having more pain. The increased Roxanol seemed to get better air hunger control but making her more confused. She would intermittently recall conversations from previous visits as she remembers I leave tomorrow for a one month training. However she would then venture off an was saying she would be losing me for a month and asking how long I would be certified. She likely is experiencing some accumulation of the medications given her declining renal function. Discussed with daughter at bedside and Adri with palliative care. Review of Systems Review of Systems: Unobtainable due to cognitive status (delirium and distracted) Physical Exam Constitutional: + acute distress, + cachectic and + frail appearing Eyes: + anicteric sclerae Respiratory: intermittent purse-lip breathing but seems to be more agitated and not as focused on breathing Skin: + mottling (feet b/l) Neurologic: moves all extremities Psychiatric: Orientation: alert Results & Data Vital Signs (Past 12 Hours) Vital Signs Temp Pulse Resp BP Pulse Ox 07/21/19 15:54 69 24 97 07/21/19 15:30 36.6 C 72 20 105/64 96 07/21/19 11:09 70 22 98 07/21/19 07:21 36.3 C L 78 20 155/80 H 94 07/21/19 07:19 76 22 97 PG Care Time/CCT Total # of Minutes Spent Total Time Spent with Patient: Total time spent is greater than 50% in coordination of care (as documented) at patient's floor/unit and/or counseling patient: (1) COPD (chronic obstructive pulmonary disease) COPD type: unspecified COPD Qualified Code(s): J44.9 - Chronic obstructive pulmonary disease, unspecified (2) Pneumonia Laterality: left Lung location: lower lobe of lung Pneumonia type: due to unspecified organism Qualified Code(s): J18.1 - Lobar pneumonia, unspecified organism (3) Chest pain Chest pain type: unspecified Qualified Code(s): R07.9 - Chest pain, unspecified (4) Hypertension Hypertension type: essential hypertension Qualified Code(s): I10 - Essential (primary) hypertension (5) Depression Depression Type: other depression Qualified Code(s): F32.89 - Other specified depressive episodes (6) Hypothyroidism Hypothyroidism type: acquired Qualified Code(s): E03.9 - Hypothyroidism, unspecified
[2019-07-21] MEDS ORDERED: DiphenhydrAMINE HCL 50 MG/ML VIAL IV STA (16:48)
[2019-07-21] MEDS ORDERED: MoRPHine SULFATE 5 MG/0.25 ML UDP PO ONE (16:53)
[2019-07-21] MEDS ORDERED: HYDROmorphone HCL 2 MG TAB PO PRN (17:55)
[2019-07-21] MEDS: HYDROmorphone INJ 0.5 MG/0.5 ML SYR IV PRN (18:57)
[2019-07-21] MEDS: HYDROmorphone HCL 2 MG TAB PO SCH ×2 (22:01→22:18)
[2019-07-21] MEDS: TRAZODONE HCL 50 MG TAB PO SCH ×2 (22:01→22:18)
[2019-07-22] MEDS: ALBUT/IPRATROP 3MG/0.5MG NEB 3 ML VIAL NEB SCH ×6 (03:52→22:48)
[2019-07-22] MEDS: LEVOTHYROXINE SODIUM 88 MCG TABLET PO SCH (05:47)
[2019-07-22] MEDS: HYDROCORTISONE 1% CRM 30 GM TUBE EXT PRN ×2 (05:47→09:34)
[2019-07-22] MEDS: HYDROmorphone INJ 0.5 MG/0.5 ML SYR IV PRN (06:18)
[2019-07-22] MEDS ORDERED: MoRPHine SULFATE 5 MG/0.25 ML UDP PO SCH (09:00)
[2019-07-22] MEDS: predniSONE 10 MG TABLET PO SCH (10:08)
[2019-07-22] MEDS: HydrALAZINE TAB 50 MG TAB PO SCH ×3 (10:09→20:18)
[2019-07-22] MEDS: ESCITALOPRAM OXALATE 10 MG TAB PO SCH (10:09)
[2019-07-22] MEDS: PANTOprazole 40 MG TAB PO SCH ×2 (10:09→20:18)
[2019-07-22] MEDS: CARVEDILOL 12.5 MG TAB PO SCH ×2 (10:10→18:06)
[2019-07-22] MEDS: COLESTIPOL HCL 5 GM POWDER PACK PO SCH (10:10)
[2019-07-22] MEDS: HYDROmorphone HCL 2 MG TAB PO SCH ×2 (10:13→20:18)
--- NOTE | 2019-07-22 10:26 | Palliative Care Progress Note ---
Date of Service July 22, 2019 Assessment & Plan (1) Goals of care, counseling/discussion: Patient is an 78 year old female who presented to the hospital 0n 07/11 with chest tightness, poor appetite, and shortness of breath x 3 days. Additional PMH includes COPD, pHTN, Depression, HTN, CKD IV, Breast CA, AAA. Her COPD is multi-factorial with complicating factors including LLL pneumonia, small bilateral pleural effusions and her 60 pack year smoking history. The patient states she has abstained from smoking since November 2018. Additionally, she has lost over 20 lbs over the past 8 months unintentionally. Nephrology and Pulmonology have been consulted and assisting with management of this patients symptoms. The patient does have multi-organ failure including end-stage COPD, CHF and kidney failure. She has received diuresis and IV antibiotics. At this time, the plural effusions are not large enough for a thoracentesis/pleur-x catheter placement. Palliative Care consulted to discuss goals of care. -I met with patient who also had a assistant chief nursing officer caring for her. -Patient continues to have restlessness and agitation, slightly improved from yesterday. Patient was awake most of the overnight. Had a family member stay most of the evening. -Patient has periods of acute mental status and orientation, coupled with flight of ideas and hallucinations with picking at things in the air. -Continue to feel patient has some component of delirum as she seemed agitated we weren't including her in the conversation, but her eyes kept rolling like she was almost 'drunk'. -Pupils are not pinpoint and do react to light, making me think a little less about narcotic sensitivity vs encephalopathy. -I called the patients daughter, Forest, on the phone to discuss the above and reiterate that she does need to have her symptoms more under control, which may lead to sedation and less communication, she understands. I answered all of her questions regarding the process. Ideally, provide her symptom management and hopefully be able to wean appropriately for better communication if she becomes sedated. -Continued considerations regarding her mental status: -hospital delirium -opioid naive and sensitivity to narcotics--> less likely as pupils PERRLA -Worsening renal or liver failure with hyperammonia levels, confirmed with daughter not going to investigate this -Encephalopathy related to hepatic failure or hypercapnia. -To promote level of comfort at this time, I made the following medication changes: 1. Added Zyprexa 5 mg po daily. This can be increased by 5 mg daily intervals with a max of 20 mg for delirium 2. Added Benadryl 25 ,g IV Q8 hours scheduled for pruritis and insomnia 3. Added Ativan 0.5mg IV Q8 hours scheduled for agitation. Understanding the risk of respiratory depression which the daughter understands. 4. D/C Trazadone as this could have contributed to some TD effects and delirium Patient still has Dilaudid 2mg po BID and Dilaudid 2 mg po Q2 PRN for air hunger/pain. Can reassess and back down on dosing if needed. -Should the patient continue to show uncontrolled signs of agitation, delirium, discharge out of hospital may not be possible. -Should the patient require additional alterations of medications, consider evaluation for [facility]. I discussed this with the patients daughter, she has not yet chosen a hospice agency. Case management to follow this. -Original plan was to go to [facility] with Hospice. -Confirmed her code status to remain DNR. -A POLST form was completed indicating DNR.DNI, comfort measures only, trial abx, and no artificial nutrition/hydration. -All of the above was collaborated, discussed and supported with the hospitalist. We will continue to closely monitor and provide support. -PPS: 20% Subjective Patient restless when I entered the room, picking at blankets and shaking head back and forth. Patient states she needs to have a BM. Abdomen was slightly distended yesterday, too see a/p for further details. Review of Systems Review of Systems: Patient denies fever, chills, increased shortness of breath, chest pain, N/V/D. Physical Exam Constitutional: + ill appearing, + cachectic and + in distress Respiratory: + uses accessory muscles, + cough and + pursed lip breathing Auscultation: + crackles (posteriorly ) and + wheezes Cardiovascular: RRR, no murmur, no edema Gastrointestinal (Abdomen): Inspection/Auscultation: + abdomen distended (patient cachectic and abdomen is small, but firm and distended for her body) and normal bowel sounds (bowel sounds hyperactive ) Skin: + rash (right hand) and + ecchymosis (on left arm) Psychiatric: A+Ox3, euthymic affect Lymphatic: no cervical or axillary lymphadenopathy Results & Data Vital Signs (Past 12 Hours) Vital Signs Temp Pulse Resp BP Pulse Ox 07/22/19 07:58 37.3 C 77 14 139/76 91 07/22/19 06:58 67 18 86 L 07/22/19 03:55 68 20 93 07/22/19 00:24 36.2 C L 69 20 141/66 H 97 07/21/19 23:23 62 18 94 Supervising Physician Co-Signing Physician Notes Patient seen and examined later this afternoon-no family at bedside. Patient calm, did not respond to voice or touch. PE: Unresponsive to voice or touch Respirations: Unlabored CV: Regular rate, no edema Abdomen: Not distended Neuro: Unresponsive to voice or touch -Skin, feet cool, early mottling heels and distal toes Agree with above note, assessment and plan as per RAFY Dodd-will continue to follow and provide support to patient and family. PG Care Time/CCT Total # of Minutes Spent Total Time Spent with Patient: Total time spent is greater than 50% in coordination of care (as documented) at patient's floor/unit and/or counseling patient: 45 Time Spent Midlevel Total time spent 45 minutes with > 50% of that time spent assessing the patient, discussing symptom management and goals of care with the patients daughter and collaborating with IDT members
[2019-07-22] MEDS: LORazepam 0.25 MG/0.5 ML VIAL IV SCH ×2 (13:16→20:19)
[2019-07-22] MEDS: OLANZapine 5 MG TABLET PO SCH (13:17)
[2019-07-22] MEDS: DiphenhydrAMINE HCL 50 MG/ML VIAL IV SCH ×2 (13:17→20:18)
--- NOTE | 2019-07-22 21:35 | Hospitalist Progress Note ---
Date of Service July 22, 2019 Assessment & Plan (1) Acute and chronic respiratory failure with hypoxia: - Multifactorial - COPD Exacerbation, LLL Pneumonia, B/L Pleural Effusions - all in setting of end-stage COPD/pulmonary HTN - Concern for PEs given presentation and elevated D-Dimer however unable to get CTA or V/Q - she had significant ecchymosis/bleeding on heparin and this was stopped - on hospice and defer further workup - Currently maintaining on O2 via NC at 3 L - Zosyn therapy completed for pneumonia and weaning Prednisone -- Plan to wean Prednisone over next week - could consider low dose (5 mg daily) - this may give some chronic control of COPD and help with appetite - will taper further - Continue inhalers and Duonebs for treatment of air hunger will continue Dilaudid 2mg PO BID and q2 PRN hospice care (2) Delirium: improved today will add Zyprexa 5mg daily add Benadryl 25mg and Ativan 0.5mg each every 8 hours for comfort, allow her to rest family understands that this might make her sedated but she has been awake and agitated for 48 hours prior to today much more comfortable (3) COPD (chronic obstructive pulmonary disease): - Treatment as above transitioning to hospice (4) Pneumonia: completed treatment (5) Acute blood loss anemia: - Suspect 2 sources - GI with presence of melena a heme + testing and soft tissue from spontaneous bleed while on systemic heparin which has been D/Cd - Will continue Protonix 40 mg BID - no further invasive work-up at this time (6) Chronic kidney disease, stage IV (severe): - Baseline at 1.6-2 - superimposed GITA on admission likely ATN - No further blood draws due to hospice conversion - Nephrology following and S/O (7) Severe protein-calorie malnutrition: - Ongoing issue - multifactorial - had multiple testing as outpatient which has been nondiagnostic - Likely related to end-stage COPD as she reports eating is tough to do related to breathing, depression?, occult malignancy? - no further workup (8) Chest pain: - Currently resolved - only mild elevation during admission of troponin- suspected myocardial demand ischemia in setting of end-stage COPD/PNA - Echo without LV wall motion abnormalities - Current plan is management with Roxanol/Ativan and other palliative measures (9) Hypertension: - Had recent hypertensive urgency - BP have been labile but she remains asymptomatic - Continue Carvedilol 12.5 mg BID and Hydralazine 100 mg TID; could consider long-acting nitrates if ongoing chest discomfort for palliation (10) Hyponatremia: - Chronic - baseline in low 130s - asymptomatic and no further blood draws - Could consider PRN Lasix if fluid balance continues to be an issue to promote comfort (11) Depression: - Continue Lexapro and Trazadone; PRN Ativan - Try Biotin and Lozenges (12) Hypothyroidism: - STABLE - Continue Levothyroxine 88 mcg daily (13) Candidiasis of mouth and esophagus: - RESOLVED (14) Poor prognosis: - Patient is at end-stage COPD - planning on hospice and currently DNR/DNI - Planning on SNF with hospice - can D/C pending arrangements spoke with palliative care, she may not leave hospital, may be candidate for inpatient hospice Subjective patient a lot calmer today, sleeping more in the afternoon had a nice conversation with the patient at noon, she was alert and remembered meeting me on prior admission she said that she is not short of breath, denies pain she c/o not having a BM despite laxatives and eating a little more updated daughter in the evening about the plan spoke with palliative care as well, appreciate their input Review of Systems Review of Systems: All systems reviewed & are unremarkable except as noted in HPI & below Constitutional: + fatigue and + weakness; no fever Respiratory: no cough and no dyspnea Cardiovascular: no chest pain Gastrointestinal: + constipation; no abdominal pain, no nausea, no vomiting and no diarrhea/loose stools Neurologic: + confusion Psychiatric: + irritability, + confusion and + hallucinations Physical Exam Constitutional: + cachectic and + frail appearing; no acute distress Eyes: PERRL, conjunctivae normal, anicteric sclerae ENMT: external ear and nose normal, oropharynx normal Neck: trachea midline, no thyromegaly Respiratory: normal respiratory effort; no respiratory distress and no labored breathing Auscultation: lungs clear to auscultation bilaterally and + diminished lung sounds; no rhonchi and no wheezes Cardiovascular: RRR, no murmur, no edema Gastrointestinal (Abdomen): normal bowel sounds, soft, nontender, no hepatosplenomegaly Musculoskeletal: Head/Neck/Chest: normocephalic and head atraumatic Extremities: + muscle atrophy (profound, diffuse) Skin: no rashes, warm and dry Neurologic: patellar DTR's 2+ bilat, sensation intact and PERRL, EOMI, accommodation nl, no face palsy, no dysarthria Psychiatric: Orientation: alert, oriented to person, oriented to place and cooperative; + not oriented to time Lymphatic: no cervical or axillary lymphadenopathy Results & Data Vital Signs (Past 12 Hours) Vital Signs Temp Pulse Pulse Resp BP Pulse Ox 07/22/19 19:13 72 14 96 07/22/19 15:28 36.5 C 63 136/70 07/22/19 15:21 67 12 98 07/22/19 11:44 74 18 96 Medications Administered Current Inpatient Medications Acetaminophen (Tylenol) 650 mg PO Q4H PRN PRN Reason: Pain or Fever Stop: 08/10/19 16:42 Last Admin: 07/17/19 16:47 Dose: 650 mg Documented by: Albuterol (Duoneb) 3 ml NEB Q4R [facility] Stop: 08/10/19 18:59 Last Admin: 07/22/19 19:13 Dose: 3 ml Documented by: Carvedilol (Coreg) 12.5 mg PO BIDM [facility] Stop: 08/10/19 10:29 Last Admin: 07/22/19 18:06 Dose: Not Given Documented by: Cetirizine HCl (Zyrtec) 10 mg PO DAILY PRN PRN Reason: Unknown Stop: 08/10/19 16:42 Colestipol HCl (Colestid) 5 gm PO DAILY@1000 [facility] Stop: 08/11/19 09:59 Last Admin: 07/22/19 10:10 Dose: Not Given Documented by: Diphenhydramine HCl (Benadryl) 25 mg IV Q8H [facility] Stop: 08/21/19 11:59 Last Admin: 07/22/19 20:18 Dose: 25 mg Documented by: Escitalopram Oxalate (Lexapro Tab) 10 mg PO QAM [facility] Stop: 08/11/19 08:59 Last Admin: 07/22/19 10:09 Dose: 10 mg Documented by: Hydralazine HCl (Apresoline) 100 mg PO TID [facility] Stop: 08/14/19 13:59 Last Admin: 07/22/19 20:18 Dose: Not Given Documented by: Hydrocortisone (Hydrocortisone 1%) 1 appln EXT Q6H PRN PRN Reason: Itching Stop: 08/18/19 17:05 Last Admin: 07/22/19 09:34 Dose: 1 appln Documented by: Hydromorphone HCl (Dilaudid) 0.5 mg IV Q2H PRN PRN Reason: Pain Stop: 08/04/19 18:00 Last Admin: 07/22/19 06:18 Dose: 0.5 mg Documented by: Hydromorphone HCl (Dilaudid) 2 mg PO BID [facility] Stop: 08/04/19 20:59 Last Admin: 07/22/19 20:18 Dose: Not Given Documented by: Lorazepam (Ativan) 0.25 mg in 0.5 mls @ 0.5 mls/min IV Q8H [facility]; Protocol Stop: 08/21/19 11:59 Last Admin: 07/22/19 20:19 Dose: 0.5 mls/min Documented by: Levothyroxine Sodium (Synthroid) 88 mcg PO DAILYBB [facility] Stop: 08/11/19 06:29 Last Admin: 07/22/19 05:47 Dose: 88 mcg Documented by: Lorazepam (Ativan) 0.5 mg PO Q6H PRN PRN Reason: Anxiety Stop: 08/17/19 15:12 Menthol (Nice) 1 ruben BUCCAL Q1H PRN PRN Reason: Sore Throat Stop: 08/19/19 14:01 Miscellaneous (Order Awaiting Action) 1 ea N/A QS [facility] Stop: 08/10/19 17:59 Last Admin: 07/22/19 16:25 Dose: Not Given Documented by: Nicotine Polacrilex (Nicorette 2mg) 1 piece MT Q3H PRN PRN Reason: Smoking Cessation Stop: 08/10/19 16:42 Olanzapine (Zyprexa) 5 mg PO QAM [facility] Stop: 08/21/19 11:44 Last Admin: 07/22/19 13:17 Dose: 5 mg Documented by: Ondansetron HCl (Zofran) 4 mg IV Q6H PRN PRN Reason: Nausea Stop: 08/10/19 16:42 Pantoprazole Sodium (Protonix) 40 mg PO BID [facility] Stop: 08/17/19 20:59 Last Admin: 07/22/19 20:18 Dose: Not Given Documented by: Polyethylene Glycol (Miralax Powder Packet) 17 gm PO DAILY PRN PRN Reason: Constipation Stop: 08/10/19 16:42 Last Admin: 07/21/19 06:29 Dose: 17 gm Documented by: Prednisone (Prednisone) 10 mg PO DAILY [facility] Stop: 08/21/19 08:59 Last Admin: 07/22/19 10:08 Dose: 10 mg Documented by: Ranitidine HCl (Zantac) 150 mg PO DAILY PRN PRN Reason: Unknown Stop: 08/10/19 16:42 Tramadol HCl (Ultram) 50 mg PO TID PRN PRN Reason: Pain Stop: 08/10/19 16:42 Last Admin: 07/18/19 18:43 Dose: 50 mg Documented by: PG Care Time/CCT Total # of Minutes Spent Total Time Spent with Patient: Total time spent is greater than 50% in coordination of care (as documented) at patient's floor/unit and/or counseling patient: (1) COPD (chronic obstructive pulmonary disease) COPD type: unspecified COPD Qualified Code(s): J44.9 - Chronic obstructive pulmonary disease, unspecified (2) Pneumonia Laterality: left Lung location: lower lobe of lung Pneumonia type: due to unspecified organism Qualified Code(s): J18.1 - Lobar pneumonia, unspecified organism (3) Chest pain Chest pain type: unspecified Qualified Code(s): R07.9 - Chest pain, unspecified (4) Hypertension Hypertension type: essential hypertension Qualified Code(s): I10 - Essential (primary) hypertension (5) Depression Depression Type: other depression Qualified Code(s): F32.89 - Other specified depressive episodes (6) Hypothyroidism Hypothyroidism type: acquired Qualified Code(s): E03.9 - Hypothyroidism, unspecified
[2019-07-23] MEDS: ALBUT/IPRATROP 3MG/0.5MG NEB 3 ML VIAL NEB SCH ×5 (03:51→19:10)
[2019-07-23] MEDS: LORazepam 0.25 MG/0.5 ML VIAL IV SCH ×2 (04:50→22:11)
[2019-07-23] MEDS: DiphenhydrAMINE HCL 50 MG/ML VIAL IV SCH ×2 (04:50→12:51)
[2019-07-23] MEDS: LEVOTHYROXINE SODIUM 88 MCG TABLET PO SCH (05:45)
[2019-07-23] MEDS: HydrALAZINE TAB 50 MG TAB PO SCH ×3 (09:00→22:08)
[2019-07-23] MEDS: COLESTIPOL HCL 5 GM POWDER PACK PO SCH (10:00)
[2019-07-23] MEDS: CARVEDILOL 12.5 MG TAB PO SCH ×2 (12:50→15:01)
[2019-07-23] MEDS: PANTOprazole 40 MG TAB PO SCH ×2 (12:51→22:22)
--- NOTE | 2019-07-23 13:43 | Palliative Care Progress Note ---
Date of Service July 23, 2019 Assessment & Plan (1) Goals of care, counseling/discussion: Patient is an 78 year old female who presented to the hospital 0n 07/11 with chest tightness, poor appetite, and shortness of breath x 3 days. Additional PMH includes COPD, pHTN, Depression, HTN, CKD IV, Breast CA, AAA. Her COPD is multi-factorial with complicating factors including LLL pneumonia, small bilateral pleural effusions and her 60 pack year smoking history. The patient states she has abstained from smoking since November 2018. Additionally, she has lost over 20 lbs over the past 8 months unintentionally. Nephrology and Pulmonology have been consulted and assisting with management of this patients symptoms. The patient does have multi-organ failure including end-stage COPD, CHF and kidney failure. She has received diuresis and IV antibiotics. At this time, the plural effusions are not large enough for a thoracentesis/pleur-x catheter placement. Palliative Care consulted to discuss goals of care. -I met with patient who also had a nursing surgical services director caring for her. -Patient is comfort measures only. -Patient's daughter chose [facility] as hospice agency-- they will come and evaluate for [facility] hospice and be on board in case a discharge to [facility] is needed. -Patient still requiring IV medication titrations for comfort. -Patient's daughter is concerned about her level of lethargy and that she hasn't been able to eat/drink since Friday. We had a long discussion re: goals, expected signs and happenings of end of life, and medication changes. -Family's goal is to have patient as awake as possible and still be comfortable. -Will back down on the Dilaudid to 1mg PO BID scheduled. HOLD FOR RESP RATE <10/MIN or OBTUNDATION. -Reduce lorazepam to 0.25mg IV BID -- HOLD FOR OBTUNDATION OR OVER-SEDATION. -Continue Dilaudid 0.5mg IV Q2h PRN pain/SOB. -Benadryl will now be PRN pruritis or dystonia. -If symptoms worsen/recur, daughter states it is okay to increase medications again-- trying to find balance of comfort, but awake. -A POLST form was completed indicating DNR.DNI, comfort measures only, trial abx, and no artificial nutrition/hydration. -PPS: 10% Subjective Patient lethargic, nearly obtunded today. Respiratory rate was 12/min this morning during visit. When nursing staff was rolling patient, she did wake up and was mumbling some words. SPoke at length with patient's daughter at bedside. Review of Systems Review of Systems: Unobtainable due to cognitive status Physical Exam Constitutional: comfortable ENMT: Mouth: + dry oral mucous membranes Neck: normal visual inspection Respiratory: normal respiratory effort; no labored breathing Cardiovascular: Rate/Rhythm: regular rate and regular rhythm Gastrointestinal (Abdomen): Inspection/Auscultation: normal bowel sounds; abdomen not distended Skin: + jaundice and + pallor Neurologic: moves all extremities and awake (but lethargic) Results & Data Vital Signs (Past 12 Hours) Vital Signs Temp Pulse Pulse Resp BP Pulse Ox 07/23/19 11:32 67 16 93 07/23/19 07:14 36.6 C 74 18 162/85 H 96 07/23/19 07:13 63 12 98 07/23/19 03:51 76 18 98 PG Care Time/CCT Prolonged Care Time Prolonged Care Time: Yes Total Prolonged Care Time: 65 Time Spent Midlevel 65 minutes with >50% of time spent at bedside with patient and family discussing condition and GOC.
[2019-07-23] MEDS ORDERED: DiphenhydrAMINE HCL 50 MG/ML VIAL IV PRN (13:47)
[2019-07-23] MEDS: OLANZapine 5 MG TABLET PO SCH (15:00)
[2019-07-23] MEDS: ESCITALOPRAM OXALATE 10 MG TAB PO SCH (15:00)
[2019-07-23] MEDS: predniSONE 10 MG TABLET PO SCH (15:01)
[2019-07-23] MEDS ORDERED: ALBUT/IPRATROP 3MG/0.5MG NEB 3 ML VIAL NEB PRN (19:07)
[2019-07-23] MEDS: HYDROmorphone HCL 2 MG TAB PO SCH ×2 (19:35→22:09)
--- NOTE | 2019-07-23 20:11 | Hospitalist Progress Note ---
Date of Service July 23, 2019 Assessment & Plan (1) Acute and chronic respiratory failure with hypoxia: - Multifactorial - COPD Exacerbation, LLL Pneumonia, B/L Pleural Effusions - all in setting of end-stage COPD/pulmonary HTN - Concern for PEs given presentation and elevated D-Dimer however unable to get CTA or V/Q - she had significant ecchymosis/bleeding on heparin and this was stopped - on hospice and defer further workup - Currently maintaining on O2 via NC at 3 L - Zosyn therapy completed for pneumonia and weaning Prednisone -- Plan to wean Prednisone over next week - could consider low dose (5 mg daily) - this may give some chronic control of COPD and help with appetite - will taper further - Continue inhalers and Duonebs for treatment of air hunger will continue Dilaudid 1mg PO BID and q2 PRN hospice care (2) Delirium: improved today continue Zyprexa 5mg daily, no need to titrate upward at this point stop Benadryl 25mg and Ativan 0.5mg each every 8 hours for comfort too sedated today (3) COPD (chronic obstructive pulmonary disease): - Treatment as above transitioning to hospice (4) Pneumonia: completed treatment (5) Acute blood loss anemia: - Suspect 2 sources - GI with presence of melena a heme + testing and soft tissue from spontaneous bleed while on systemic heparin which has been D/Cd - Will continue Protonix 40 mg BID - no further invasive work-up at this time (6) Chronic kidney disease, stage IV (severe): - Baseline at 1.6-2 - superimposed GITA on admission likely ATN - No further blood draws due to hospice conversion - Nephrology following and S/O (7) Severe protein-calorie malnutrition: - Ongoing issue - multifactorial - had multiple testing as outpatient which has been nondiagnostic - Likely related to end-stage COPD as she reports eating is tough to do related to breathing, depression?, occult malignancy? - no further workup (8) Chest pain: - Currently resolved - only mild elevation during admission of troponin- suspected myocardial demand ischemia in setting of end-stage COPD/PNA - Echo without LV wall motion abnormalities - Current plan is management with Roxanol/Ativan and other palliative measures (9) Hypertension: - Had recent hypertensive urgency - BP have been labile but she remains asymptomatic - Continue Carvedilol 12.5 mg BID and Hydralazine 100 mg TID; could consider long-acting nitrates if ongoing chest discomfort for palliation (10) Hyponatremia: - Chronic - baseline in low 130s - asymptomatic and no further blood draws - Could consider PRN Lasix if fluid balance continues to be an issue to promote comfort (11) Depression: - Continue Lexapro and Trazadone; PRN Ativan - Try Biotin and Lozenges (12) Hypothyroidism: - STABLE - Continue Levothyroxine 88 mcg daily (13) Candidiasis of mouth and esophagus: - RESOLVED (14) Poor prognosis: - Patient is at end-stage COPD - planning on hospice and currently DNR/DNI - Planning on SNF with hospice - can D/C pending arrangements spoke with palliative care, she may not leave hospital, may be candidate for inpatient hospice if she does last through weekend then plan for [place] early next week Subjective patient was sleeping a lot in the morning from the day before, getting Dilaudid 2mg PO BID scheduled daughter felt like this was too much also, she was getting Benadryl and Ativan scheduled d/w [facility], will decrease Dilaudid and Ativan, instruct RN to hold if sleeping/obtunded daughter updated at the bedside Review of Systems Review of Systems: Unobtainable due to cognitive status Physical Exam Constitutional: + cachectic and + frail appearing; no acute distress Eyes: PERRL, conjunctivae normal, anicteric sclerae ENMT: external ear and nose normal, oropharynx normal Neck: trachea midline, no thyromegaly Respiratory: normal respiratory effort; no respiratory distress and no labored breathing Auscultation: lungs clear to auscultation bilaterally and + diminished lung sounds; no rhonchi and no wheezes Cardiovascular: RRR, no murmur, no edema Gastrointestinal (Abdomen): normal bowel sounds, soft, nontender, no hepatosplenomegaly Musculoskeletal: Head/Neck/Chest: normocephalic and head atraumatic Extremities: + muscle atrophy (profound, diffuse) Skin: no rashes, warm and dry Neurologic: patellar DTR's 2+ bilat, sensation intact and PERRL, EOMI, accommodation nl, no face palsy, no dysarthria Psychiatric: Orientation: alert, oriented to person, oriented to place and cooperative; + not oriented to time Lymphatic: no cervical or axillary lymphadenopathy Results & Data Vital Signs (Past 12 Hours) Vital Signs Temp Pulse Pulse Resp BP Pulse Ox 07/23/19 15:41 65 16 96 07/23/19 15:20 36.4 C L 76 16 178/93 H 92 07/23/19 11:32 67 16 93 PG Care Time/CCT Total # of Minutes Spent Total Time Spent with Patient: Total time spent is greater than 50% in coordination of care (as documented) at patient's floor/unit and/or counseling patient: (1) Depression Depression Type: other depression Qualified Code(s): F32.89 - Other specified depressive episodes (2) Hypothyroidism Hypothyroidism type: acquired Qualified Code(s): E03.9 - Hypothyroidism, unspecified (3) COPD (chronic obstructive pulmonary disease) COPD type: unspecified COPD Qualified Code(s): J44.9 - Chronic obstructive pulmonary disease, unspecified (4) Chest pain Chest pain type: unspecified Qualified Code(s): R07.9 - Chest pain, unspecified (5) Hypertension Hypertension type: essential hypertension Qualified Code(s): I10 - Essential (primary) hypertension (6) Pneumonia Laterality: left Lung location: lower lobe of lung Pneumonia type: due to unspecified organism Qualified Code(s): J18.1 - Lobar pneumonia, unspecified organism
[2019-07-24] MEDS: LEVOTHYROXINE SODIUM 88 MCG TABLET PO SCH (06:39)
[2019-07-24] MEDS: PANTOprazole 40 MG TAB PO SCH ×2 (07:33→20:54)
[2019-07-24] MEDS: HydrALAZINE TAB 50 MG TAB PO SCH ×3 (07:33→20:54)
[2019-07-24] MEDS: CARVEDILOL 12.5 MG TAB PO SCH ×2 (07:33→17:03)
[2019-07-24] MEDS ORDERED: HYDROmorphone HCL 2 MG TAB PO SCH (09:15)
[2019-07-24] MEDS ORDERED: Nursing to Pharmacy Communication ONE (10:35)
[2019-07-24] MEDS: predniSONE 10 MG TABLET PO SCH (10:49)
[2019-07-24] MEDS: ESCITALOPRAM OXALATE 10 MG TAB PO SCH (10:49)
[2019-07-24] MEDS: HYDROmorphone HCL 2 MG TAB PO SCH ×3 (10:49→20:45)
[2019-07-24] MEDS: COLESTIPOL HCL 5 GM POWDER PACK PO SCH (10:59)
[2019-07-24] MEDS: LORazepam 0.25 MG/0.5 ML VIAL IV SCH ×2 (11:30→20:45)
[2019-07-24] MEDS: HYDROmorphone INJ 0.5 MG/0.5 ML SYR IV PRN (13:42)
[2019-07-24] MEDS: OLANZapine 5 MG TABLET PO SCH (14:10)
--- NOTE | 2019-07-24 16:01 | Hospitalist Progress Note ---
Date of Service July 24, 2019 Assessment & Plan (1) Acute and chronic respiratory failure with hypoxia: - Multifactorial - COPD Exacerbation, LLL Pneumonia, B/L Pleural Effusions - all in setting of end-stage COPD/pulmonary HTN - Concern for PEs given presentation and elevated D-Dimer however unable to get CTA or V/Q - she had significant ecchymosis/bleeding on heparin and this was stopped - on hospice and defer further workup - Currently maintaining on O2 via NC at 3 L - Zosyn therapy completed for pneumonia and weaning Prednisone -- Plan to wean Prednisone over next week - could consider low dose (5 mg daily) - this may give some chronic control of COPD and help with appetite - will taper further - Continue inhalers and Duonebs for treatment of air hunger will continue Dilaudid 1mg PO BID and q2 PRN hospice care breathing comfortably most of the day, needed PRN Dilaudid at 2pm but otherwise okay (2) Delirium: some confusion and hallucinations, reaching for things but will answer questions appropriately, asking about her dog, appropriate responses to most questions continue Zyprexa 5mg daily, no need to titrate upward at this point stop Benadryl 25mg and Ativan 0.5mg each every 8 hours for comfort less sedation today, likely the current regimen will work on discharge (3) COPD (chronic obstructive pulmonary disease): - Treatment as above transitioning to hospice (4) Pneumonia: completed treatment (5) Acute blood loss anemia: - Suspect 2 sources - GI with presence of melena a heme + testing and soft tissue from spontaneous bleed while on systemic heparin which has been D/Cd - Will continue Protonix 40 mg BID - no further invasive work-up at this time (6) Chronic kidney disease, stage IV (severe): - Baseline at 1.6-2 - superimposed GITA on admission likely ATN - No further blood draws due to hospice conversion - Nephrology following and S/O (7) Severe protein-calorie malnutrition: - Ongoing issue - multifactorial - had multiple testing as outpatient which has been nondiagnostic - Likely related to end-stage COPD as she reports eating is tough to do related to breathing, depression?, occult malignancy? - no further workup (8) Chest pain: - Currently resolved - only mild elevation during admission of troponin- suspected myocardial demand ischemia in setting of end-stage COPD/PNA - Echo without LV wall motion abnormalities - Current plan is management with Roxanol/Ativan and other palliative measures (9) Hypertension: - Had recent hypertensive urgency - BP have been labile but she remains asymptomatic - Continue Carvedilol 12.5 mg BID and Hydralazine 100 mg TID; could consider long-acting nitrates if ongoing chest discomfort for palliation (10) Hyponatremia: - Chronic - baseline in low 130s - asymptomatic and no further blood draws - Could consider PRN Lasix if fluid balance continues to be an issue to promote comfort (11) Depression: - Continue Lexapro and Trazadone; PRN Ativan - Try Biotin and Lozenges (12) Hypothyroidism: - STABLE - Continue Levothyroxine 88 mcg daily (13) Candidiasis of mouth and esophagus: - RESOLVED (14) Poor prognosis: - Patient is at end-stage COPD - planning on hospice and currently DNR/DNI - Planning on SNF with hospice - can D/C pending arrangements spoke with palliative care, she may not leave hospital, may be candidate for inpatient hospice if she does last through weekend then plan for [facility] early next week Subjective patient resting comfortably most of the day she received Dilaudid 1mg PO this morning and then another dose around 2pm for breakthrough dyspnea not getting Ativan as she is comfortable she is drinking some water but oral intake not good long discussion with daughter at the bedside, explained that every situation is different while we would like to keep her comfortable and lucid sometimes that is not realistic the patient has signs of delirium and certainly narcotics will make it worse she is certainly improved since the beginning of the week when she was agitated patient's son will be here later this evening, plan to update him at the bedside tomorrow discussed with daughter that time frame is unknown but certainly with her not eating or drinking much it would be days to weeks range, less than a month if she continues down this course Review of Systems Review of Systems: Unobtainable due to cognitive status Physical Exam Constitutional: + cachectic and + frail appearing; no acute distress Eyes: PERRL, conjunctivae normal, anicteric sclerae ENMT: external ear and nose normal, oropharynx normal Neck: trachea midline, no thyromegaly Respiratory: normal respiratory effort; no respiratory distress and no labored breathing Auscultation: lungs clear to auscultation bilaterally and + diminished lung sounds; no rhonchi and no wheezes Cardiovascular: RRR, no murmur, no edema Gastrointestinal (Abdomen): normal bowel sounds, soft, nontender, no hepatosplenomegaly Musculoskeletal: Head/Neck/Chest: normocephalic and head atraumatic Extremities: + muscle atrophy (profound, diffuse) Skin: no rashes, warm and dry Neurologic: patellar DTR's 2+ bilat, sensation intact and PERRL, EOMI, accommodation nl, no face palsy, no dysarthria Psychiatric: Orientation: alert, oriented to person, oriented to place and cooperative; + not oriented to time Lymphatic: no cervical or axillary lymphadenopathy Results & Data Vital Signs (Past 12 Hours) Vital Signs Temp Pulse Resp BP Pulse Ox 07/24/19 15:02 37.3 C 70 16 145/72 H 96 07/24/19 07:47 90 07/24/19 07:12 36.3 C L 75 16 154/75 H 84 L Medications Administered Current Inpatient Medications Acetaminophen (Tylenol) 650 mg PO Q4H PRN PRN Reason: Pain or Fever Stop: 08/10/19 16:42 Last Admin: 07/17/19 16:47 Dose: 650 mg Documented by: Albuterol (Duoneb) 3 ml NEB Q4R PRN PRN Reason: comfort measure Stop: 08/10/19 18:59 Carvedilol (Coreg) 12.5 mg PO BIDM [facility] Stop: 08/10/19 10:29 Last Admin: 07/24/19 07:33 Dose: 12.5 mg Documented by: Cetirizine HCl (Zyrtec) 10 mg PO DAILY PRN PRN Reason: Unknown Stop: 08/10/19 16:42 Colestipol HCl (Colestid) 5 gm PO DAILY@1000 [facility] Stop: 08/11/19 09:59 Last Admin: 07/24/19 10:59 Dose: Not Given Documented by: Diphenhydramine HCl (Benadryl) 25 mg IV Q8H PRN PRN Reason: Pruritis or Dystonia Stop: 08/21/19 11:59 Escitalopram Oxalate (Lexapro Tab) 10 mg PO QAM [facility] Stop: 08/11/19 08:59 Last Admin: 07/24/19 10:49 Dose: 10 mg Documented by: Hydralazine HCl (Apresoline) 100 mg PO TID [facility] Stop: 08/14/19 13:59 Last Admin: 07/24/19 14:09 Dose: Not Given Documented by: Hydrocortisone (Hydrocortisone 1%) 1 appln EXT Q6H PRN PRN Reason: Itching Stop: 08/18/19 17:05 Last Admin: 07/22/19 09:34 Dose: 1 appln Documented by: Hydromorphone HCl (Dilaudid) 0.5 mg IV Q2H PRN PRN Reason: Pain Stop: 08/04/19 18:00 Last Admin: 07/24/19 13:42 Dose: 0.5 mg Documented by: Hydromorphone HCl (Dilaudid) 1 mg PO BID [facility] Stop: 08/07/19 20:59 Last Admin: 07/24/19 10:49 Dose: 1 mg Documented by: Lorazepam (Ativan) 0.25 mg in 0.5 mls @ 0.5 mls/min IV BID [facility]; Protocol Stop: 08/22/19 20:59 Last Admin: 07/24/19 11:30 Dose: Not Given Documented by: Levothyroxine Sodium (Synthroid) 88 mcg PO DAILYBB [facility] Stop: 08/11/19 06:29 Last Admin: 07/24/19 06:39 Dose: Not Given Documented by: Lorazepam (Ativan) 0.5 mg PO Q6H PRN PRN Reason: Anxiety Stop: 08/17/19 15:12 Menthol (Nice) 1 ruben BUCCAL Q1H PRN PRN Reason: Sore Throat Stop: 08/19/19 14:01 Miscellaneous (Order Awaiting Action) 1 ea N/A QS [facility] Stop: 08/10/19 17:59 Last Admin: 07/24/19 15:57 Dose: Not Given Documented by: Nicotine Polacrilex (Nicorette 2mg) 1 piece MT Q3H PRN PRN Reason: Smoking Cessation Stop: 08/10/19 16:42 Olanzapine (Zyprexa) 5 mg PO QAM [facility] Stop: 08/21/19 11:44 Last Admin: 07/24/19 14:10 Dose: Not Given Documented by: Ondansetron HCl (Zofran) 4 mg IV Q6H PRN PRN Reason: Nausea Stop: 08/10/19 16:42 Pantoprazole Sodium (Protonix) 40 mg PO BID [facility] Stop: 08/17/19 20:59 Last Admin: 07/24/19 07:33 Dose: 40 mg Documented by: Polyethylene Glycol (Miralax Powder Packet) 17 gm PO DAILY PRN PRN Reason: Constipation Stop: 08/10/19 16:42 Last Admin: 07/21/19 06:29 Dose: 17 gm Documented by: Prednisone (Prednisone) 10 mg PO DAILY [facility] Stop: 08/21/19 08:59 Last Admin: 07/24/19 10:49 Dose: 10 mg Documented by: Ranitidine HCl (Zantac) 150 mg PO DAILY PRN PRN Reason: Unknown Stop: 08/10/19 16:42 Tramadol HCl (Ultram) 50 mg PO TID PRN PRN Reason: Pain Stop: 08/10/19 16:42 Last Admin: 07/18/19 18:43 Dose: 50 mg Documented by: PG Care Time/CCT Total # of Minutes Spent Total Time Spent with Patient: Total time spent is greater than 50% in coordination of care (as documented) at patient's floor/unit and/or counseling patient: (1) COPD (chronic obstructive pulmonary disease) COPD type: unspecified COPD Qualified Code(s): J44.9 - Chronic obstructive pulmonary disease, unspecified (2) Pneumonia Laterality: left Lung location: lower lobe of lung Pneumonia type: due to unspecified organism Qualified Code(s): J18.1 - Lobar pneumonia, unspecified organism (3) Chest pain Chest pain type: unspecified Qualified Code(s): R07.9 - Chest pain, unspecified (4) Hypertension Hypertension type: essential hypertension Qualified Code(s): I10 - Essential (primary) hypertension (5) Depression Depression Type: other depression Qualified Code(s): F32.89 - Other specified depressive episodes (6) Hypothyroidism Hypothyroidism type: acquired Qualified Code(s): E03.9 - Hypothyroidism, unspecified
[2019-07-25] MEDS: LEVOTHYROXINE SODIUM 88 MCG TABLET PO SCH (05:03)
[2019-07-25] MEDS: PANTOprazole 40 MG TAB PO SCH ×2 (08:34→19:59)
[2019-07-25] MEDS: HydrALAZINE TAB 50 MG TAB PO SCH ×3 (08:34→19:58)
[2019-07-25] MEDS: OLANZapine 5 MG TABLET PO SCH (08:34)
[2019-07-25] MEDS: ESCITALOPRAM OXALATE 10 MG TAB PO SCH (08:34)
[2019-07-25] MEDS: CARVEDILOL 12.5 MG TAB PO SCH ×2 (08:34→17:21)
[2019-07-25] MEDS: predniSONE 10 MG TABLET PO SCH (08:35)
[2019-07-25] MEDS: HYDROmorphone HCL 2 MG TAB PO SCH ×2 (09:01→20:03)
[2019-07-25] MEDS: COLESTIPOL HCL 5 GM POWDER PACK PO SCH (12:33)
[2019-07-25] MEDS: LORazepam 0.25 MG/0.5 ML VIAL IV SCH ×2 (14:24→20:43)
[2019-07-25] MEDS: HYDROmorphone INJ 0.5 MG/0.5 ML SYR IV PRN (14:28)
--- NOTE | 2019-07-25 15:41 | Hospitalist Progress Note ---
Date of Service July 25, 2019 Assessment & Plan (1) Acute and chronic respiratory failure with hypoxia: - Multifactorial - COPD Exacerbation, LLL Pneumonia, B/L Pleural Effusions - all in setting of end-stage COPD/pulmonary HTN - Concern for PEs given presentation and elevated D-Dimer however unable to get CTA or V/Q - she had significant ecchymosis/bleeding on heparin and this was stopped - on hospice and defer further workup - Currently maintaining on O2 via NC at 3 L - Zosyn therapy completed for pneumonia and weaning Prednisone -- Plan to wean Prednisone over next week - could consider low dose (5 mg daily) - this may give some chronic control of COPD and help with appetite - will taper further - Continue inhalers and Duonebs for treatment of air hunger will continue Dilaudid 1mg PO BID and q2 PRN hospice care breathing comfortably most of the day, needed PRN Dilaudid at 3pm likely to SNF on Friday (2) Delirium: some confusion and hallucinations, reaching for things but will answer questions appropriately, asking about her dog, appropriate responses to most questions continue Zyprexa 5mg daily, no need to titrate upward at this point stop Benadryl 25mg and Ativan 0.5mg each every 8 hours for comfort less sedation today, likely the current regimen will work on discharge (3) COPD (chronic obstructive pulmonary disease): - Treatment as above transitioning to hospice (4) Pneumonia: completed treatment (5) Acute blood loss anemia: - Suspect 2 sources - GI with presence of melena a heme + testing and soft tissue from spontaneous bleed while on systemic heparin which has been D/Cd - Will continue Protonix 40 mg BID - no further invasive work-up at this time (6) Chronic kidney disease, stage IV (severe): - Baseline at 1.6-2 - superimposed GITA on admission likely ATN - No further blood draws due to hospice conversion - Nephrology following and S/O (7) Severe protein-calorie malnutrition: - Ongoing issue - multifactorial - had multiple testing as outpatient which has been nondiagnostic - Likely related to end-stage COPD as she reports eating is tough to do related to breathing, depression?, occult malignancy? - no further workup (8) Chest pain: - Currently resolved - only mild elevation during admission of troponin- suspected myocardial demand ischemia in setting of end-stage COPD/PNA - Echo without LV wall motion abnormalities - Current plan is management with Roxanol/Ativan and other palliative measures (9) Hypertension: - Had recent hypertensive urgency - BP have been labile but she remains asymptomatic - Continue Carvedilol 12.5 mg BID and Hydralazine 100 mg TID; could consider long-acting nitrates if ongoing chest discomfort for palliation (10) Hyponatremia: - Chronic - baseline in low 130s - asymptomatic and no further blood draws - Could consider PRN Lasix if fluid balance continues to be an issue to promote comfort (11) Depression: - Continue Lexapro and Trazadone; PRN Ativan - Try Biotin and Lozenges (12) Hypothyroidism: - STABLE - Continue Levothyroxine 88 mcg daily (13) Candidiasis of mouth and esophagus: - RESOLVED (14) Poor prognosis: - Patient is at end-stage COPD - planning on hospice and currently DNR/DNI - Planning on SNF with hospice - can D/C pending arrangements spoke with palliative care, she may not leave hospital, may be candidate for in patient hospice if she does last through weekend then plan for [facility], likely on Friday Subjective long talk with patient's son and daughter at the bedside they are pleased that she is comfortable got Dilaudid 1mg PO this AM which seemed to make her comfortable most the day she did not require a dose last night she is sleeping a lot more ate some oatmeal this morning discussed that if she remains stable through tomorrow then I would be okay with her going to [facility] Friday she is exhibiting a slow decline but certainly should could get worse quickly family on board with this plan Review of Systems Review of Systems: Unobtainable due to cognitive status (lethargic, slightly confused) Physical Exam Constitutional: + cachectic and + frail appearing; no acute distress Eyes: PERRL, conjunctivae normal, anicteric sclerae ENMT: external ear and nose normal, oropharynx normal Neck: trachea midline, no thyromegaly Respiratory: normal respiratory effort; no respiratory distress and no labored breathing Auscultation: lungs clear to auscultation bilaterally and + diminished lung sounds; no rhonchi and no wheezes Cardiovascular: RRR, no murmur, no edema Gastrointestinal (Abdomen): normal bowel sounds, soft, nontender, no hepatosplenomegaly Musculoskeletal: Head/Neck/Chest: normocephalic and head atraumatic Extremities: + muscle atrophy (profound, diffuse) Skin: no rashes, warm and dry Neurologic: patellar DTR's 2+ bilat, sensation intact and PERRL, EOMI, accommodation nl, no face palsy, no dysarthria Psychiatric: Orientation: alert, oriented to person, oriented to place and cooperative; + not oriented to time Lymphatic: no cervical or axillary lymphadenopathy Results & Data Vital Signs (Past 12 Hours) Vital Signs Temp Pulse Pulse Resp BP Pulse Ox 07/25/19 15:27 36.5 C 75 16 116/60 95 07/25/19 07:12 36.3 C L 67 16 175/84 H 82 L PG Care Time/CCT Total # of Minutes Spent Total Time Spent with Patient: Total time spent is greater than 50% in coordination of care (as documented) at patient's floor/unit and/or counseling patient: (1) Depression Depression Type: other depression Qualified Code(s): F32.89 - Other specified depressive episodes (2) Hypothyroidism Hypothyroidism type: acquired Qualified Code(s): E03.9 - Hypothyroidism, unspecified (3) COPD (chronic obstructive pulmonary disease) COPD type: unspecified COPD Qualified Code(s): J44.9 - Chronic obstructive pulmonary disease, unspecified (4) Chest pain Chest pain type: unspecified Qualified Code(s): R07.9 - Chest pain, unspecified (5) Hypertension Hypertension type: essential hypertension Qualified Code(s): I10 - Essential (primary) hypertension (6) Pneumonia Laterality: left Lung location: lower lobe of lung Pneumonia type: due to unspecified organism Qualified Code(s): J18.1 - Lobar pneumonia, unspecified organism
[2019-07-26] MEDS: HYDROmorphone INJ 0.5 MG/0.5 ML SYR IV PRN (02:33)
[2019-07-26] MEDS: LEVOTHYROXINE SODIUM 88 MCG TABLET PO SCH (06:02)
[2019-07-26] MEDS: PANTOprazole 40 MG TAB PO SCH (08:21)
[2019-07-26] MEDS: HYDROmorphone HCL 2 MG TAB PO SCH (08:21)
[2019-07-26] MEDS: CARVEDILOL 12.5 MG TAB PO SCH ×2 (08:21→17:30)
[2019-07-26] MEDS: ESCITALOPRAM OXALATE 10 MG TAB PO SCH (08:21)
[2019-07-26] MEDS: predniSONE 10 MG TABLET PO SCH (08:21)
[2019-07-26] MEDS: OLANZapine 5 MG TABLET PO SCH (08:22)
[2019-07-26] MEDS: HydrALAZINE TAB 50 MG TAB PO SCH ×3 (08:22→21:23)
--- NOTE | 2019-07-26 10:40 | Palliative Care Progress Note ---
Date of Service July 26, 2019 Assessment & Plan (1) Goals of care, counseling/discussion: Patient is an 78 year old female who presented to the hospital 0n 07/11 with chest tightness, poor appetite, and shortness of breath x 3 days. Additional PMH includes COPD, pHTN, Depression, HTN, CKD IV, Breast CA, AAA. Her COPD is multi-factorial with complicating factors including LLL pneumonia, small bilateral pleural effusions and her 60 pack year smoking history. The patient states she has abstained from smoking since November 2018. Additionally, she has lost over 20 lbs over the past 8 months unintentionally. Nephrology and Pulmonology have been consulted and assisting with management of this patients symptoms. The patient does have multi-organ failure including end-stage COPD, CHF and kidney failure. She has received diuresis and IV antibiotics. At this time, the plural effusions are not large enough for a thoracentesis/pleur-x catheter placement. Palliative Care consulted to discuss goals of care. -Patient sleeping when I entered the room. Pt son, Lyndon at bedside, update pr ovided. -patient remains comfort measures only. Patient slept through my whole encounter, even with assessing her she did not wake. Per son, she was awake until 2 AM. -Patient sleeping, received 2 doses of Dilaudid over past 24 hours. -Patient fell out of bed last night with son present, kept saying "what am I doing here, I'm trying to get out to the bathroom" -Patient's daughter chose [facility] as hospice agency-- they will come and have conversation today at the hospital and eventual hopeful discharge tomorrow to [facility] with Hospice services. -Should patient decline prior to discharge, may be appropriate for [facility] hospice. -Patient has utilized two doses of IV Dilaudid over the past 24 hours, if we are hopeful for discharge, and as patients symptoms are more controlled, switching to po and assessing how the patient tolerates. -Patient's daughter is concerned about her level of lethargy and that she hasn't been able to eat/drink since Friday. We had a long discussion re: goals, expected signs and happenings of end of life, and medication changes. -Family's goal is to have patient as awake as possible and still be comfortable. -Today, I made the following mediation changes: 1. D/C Ativan 0.25 mg IV BID and ordered Ativan 0.5 mg po Q6 PRN Hold for RR < 10 2. D/C Dilaudid 0.5 mg IV BID and ordered Dilaudid 1 mg po Q2 PRN Hold for RR < 10 3. D/C Tramadol -If symptoms worsen/recur, daughter states it is okay to increase medications again-- trying to find balance of comfort, but awake. -I talked with the patients son about non-essential medications, they want to attempt patient to have cardiac meds if able, but ok to D/C Synthroid and Protonix. -patient continues to make urine and mottling on the bottom of her feet has improved. -A POLST form was completed indicating DNR.DNI, comfort measures only, trial abx, and no artificial nutrition/hydration. -We will continue to provide support to the patient and family. -PPS: 10% Subjective Patient sleeping when I entered the room. Pt son, Lyndon at bedside, update p cuco. Patient sleeping, received 2 doses of Dilaudid over past 24 hours. Patient fell out of bed last night with son present, kept saying "what am I doing here, I'm trying to get out to the bathroom" See A/P for further details. Review of Systems Review of Systems: Unobtainable due to cognitive status Physical Exam Constitutional: + ill appearing, + cachectic and + in distress Respiratory: + uses accessory muscles, + cough and + pursed lip breathing Auscultation: + crackles (posteriorly ) and + wheezes Cardiovascular: RRR, no murmur, no edema Gastrointestinal (Abdomen): normal bowel sounds, soft, nontender, no hepatosplenomegaly Inspection/Auscultation: + abdomen distended (patient cachectic and abdomen is small, but firm and distended for her body) and normal bowel sounds (bowel sounds hyperactive ) Skin: + rash (right hand) and + ecchymosis (on left arm) Psychiatric: A+Ox3, euthymic affect Lymphatic: no cervical or axillary lymphadenopathy Results & Data Vital Signs (Past 12 Hours) Vital Signs Temp Pulse Resp BP Pulse Ox 07/26/19 07:33 37.0 C 66 18 151/71 H 96 07/26/19 02:00 70 20 154/83 H 88 L 07/25/19 23:24 36.4 C L 94 H 20 128/60 98 PG Care Time/CCT Total # of Minutes Spent Total Time Spent with Patient: Total time spent is greater than 50% in coordination of care (as documented) at patient's floor/unit and/or counseling patient: 45 Time Spent Midlevel total time spent > 50% of the time spent assessing the patient and discussing goals of care and providing symptom management.
[2019-07-26] MEDS ORDERED: HYDROmorphone HCL 2 MG TAB PO PRN (10:43)
[2019-07-26] MEDS: COLESTIPOL HCL 5 GM POWDER PACK PO SCH (10:59)
[2019-07-26] MEDS: HYDROmorphone HCL 2 MG TAB PO PRN ×2 (14:40→19:15)
[2019-07-26] MEDS: LORazepam 0.25 MG/0.5 ML VIAL IV SCH (18:10)
--- NOTE | 2019-07-26 22:04 | Hospitalist Progress Note ---
Date of Service July 26, 2019 Assessment & Plan (1) Acute and chronic respiratory failure with hypoxia: - Multifactorial - COPD Exacerbation, LLL Pneumonia, B/L Pleural Effusions - all in setting of end-stage COPD/pulmonary HTN - Concern for PEs given presentation and elevated D-Dimer however unable to get CTA or V/Q - she had significant ecchymosis/bleeding on heparin and this was stopped - on hospice and defer further workup - Currently maintaining on O2 via NC at 3 L - Zosyn therapy completed for pneumonia and weaning Prednisone -- Plan to wean Prednisone over next week - could consider low dose (5 mg daily) - this may give some chronic control of COPD and help with appetite - will taper further - Continue inhalers and Duonebs for treatment of air hunger will continue Dilaudid 1mg but at q2 PRN hospice care breathing comfortably most of the day, needed PRN Dilaudid at 3pm likely to SNF on Friday; will continue to monitor. Possible discharge on 07/27, Patient did have an issue overnight where she climbed out of bed. Will need to confirm that she tolerates the PRN dose of dilaudid. (2) Delirium: some confusion and hallucinations, reaching for things but will answer questions appropriately, asking about her dog, appropriate responses to most questions continue Zyprexa 5mg daily, no need to titrate upward at this point stop Benadryl 25mg and Ativan 0.5mg each every 8 hours for comfort less sedation today, likely the current regimen will work on discharge (3) COPD (chronic obstructive pulmonary disease): - Treatment as above transitioning to hospice (4) Pneumonia: completed treatment (5) Acute blood loss anemia: - Suspect 2 sources - GI with presence of melena a heme + testing and soft tissue from spontaneous bleed while on systemic heparin which has been D/Cd - Will continue Protonix 40 mg BID - no further invasive work-up at this time (6) Chronic kidney disease, stage IV (severe): - Baseline at 1.6-2 - superimposed GITA on admission likely ATN - No further blood draws due to hospice conversion - Nephrology following and S/O (7) Severe protein-calorie malnutrition: - Ongoing issue - multifactorial - had multiple testing as outpatient which has been nondiagnostic - Likely related to end-stage COPD as she reports eating is tough to do related to breathing, depression?, occult malignancy? - no further workup (8) Chest pain: - Currently resolved - only mild elevation during admission of troponin- suspected myocardial demand ischemia in setting of end-stage COPD/PNA - Echo without LV wall motion abnormalities - Current plan is management with Roxanol/Ativan and other palliative measures (9) Hypertension: - Had recent hypertensive urgency - BP have been labile but she remains asymptomatic - Continue Carvedilol 12.5 mg BID and Hydralazine 100 mg TID; could consider long-acting nitrates if ongoing chest discomfort for palliation (10) Hyponatremia: - Chronic - baseline in low 130s - asymptomatic and no further blood draws - Could consider PRN Lasix if fluid balance continues to be an issue to promote comfort (11) Depression: - Continue Lexapro and Trazadone; PRN Ativan - Try Biotin and Lozenges (12) Hypothyroidism: - STABLE - Continue Levothyroxine 88 mcg daily (13) Candidiasis of mouth and esophagus: - RESOLVED (14) Poor prognosis: - Patient is at end-stage COPD - planning on hospice and currently DNR/DNI - Planning on SNF with hospice - can D/C pending arrangements spoke with palliative care, she may not leave hospital, may be candidate for inpatient hospice possible discharge, likely on Friday Spent 35 minutes in management of patient. This included chart review as well as discussion with family Subjective Patient is resting comfortably. Patient has no complaints. Family is at bedside and have multiple questions regarding medication. Review of Systems Review of Systems: Unobtainable due to reduced consciousness Physical Exam Physical Exam: Constitutional: + cachectic and + frail appearing; no acute distressl Neck: trachea midline, no thyromegaly Respiratory: normal respiratory effort; no respiratory distress and no labored breathing Gastrointestinal (Abdomen): normal bowel sounds, soft, nontender, no hepatosplenomegaly Musculoskeletal: Head/Neck/Chest: normocephalic and head atraumatic Extremities: + muscle atrophy (profound, diffuse) Skin: no rashes, warm and dry Psychiatric: resting Lymphatic: no cervical or axillary lymphadenopathy Results & Data Vital Signs (Past 12 Hours) Vital Signs Temp Pulse Resp BP Pulse Ox 07/26/19 16:13 36.9 C 58 L 20 171/52 H 86 L PG Care Time/CCT Total # of Minutes Spent Total Time Spent with Patient: Total time spent is greater than 50% in coordination of care (as documented) at patient's floor/unit and/or counseling patient: (1) Depression Depression Type: other depression Qualified Code(s): F32.89 - Other specified depressive episodes (2) Hypothyroidism Hypothyroidism type: acquired Qualified Code(s): E03.9 - Hypothyroidism, unspecified (3) COPD (chronic obstructive pulmonary disease) COPD type: unspecified COPD Qualified Code(s): J44.9 - Chronic obstructive pulmonary disease, unspecified (4) Chest pain Chest pain type: unspecified Qualified Code(s): R07.9 - Chest pain, unspecified (5) Hypertension Hypertension type: essential hypertension Qualified Code(s): I10 - Essential (primary) hypertension (6) Pneumonia Laterality: left Lung location: lower lobe of lung Pneumonia type: due to unspecified organism Qualified Code(s): J18.1 - Lobar pneumonia, unspecified organism
[2019-07-27 07:37] VITALS: TEMP 97.9
[2019-07-27] MEDS: HydrALAZINE TAB 50 MG TAB PO SCH ×2 (09:11→14:46)
[2019-07-27] MEDS: CARVEDILOL 12.5 MG TAB PO SCH (09:12)
[2019-07-27] MEDS: predniSONE 10 MG TABLET PO SCH (09:12)
[2019-07-27] MEDS: OLANZapine 5 MG TABLET PO SCH (09:12)
[2019-07-27] MEDS: ESCITALOPRAM OXALATE 10 MG TAB PO SCH (09:12)
[2019-07-27] MEDS: COLESTIPOL HCL 5 GM POWDER PACK PO SCH (13:24)
[2019-07-27 15:43] VITALS: BP 157/84; PULSE 63; O2SAT 90
== END 2019-07-27 16:56 | disposition hospice, inpatient (51) | DRG 193 ==
LOC: ED 12:26 → SUATTDRO 15:19 → 2S 15:19 → 4W 07-18 15:15
DX: E03.9 Hypothyroidism, unspecified; I27.20 Pulmonary hypertension, unspecified; Z51.5 Encounter for palliative care; F32.9 Major depressive disorder, single episode, unspecified; N17.0 Acute kidney failure with tubular necrosis; I13.0 Hypertensive heart and chronic kidney disease with heart failure and stage 1 through stage 4 chronic kidney disease, or unspecified chronic kidney disease; Z66 Do not resuscitate; J44.1 Chronic obstructive pulmonary disease with (acute) exacerbation; J18.1 Lobar pneumonia, unspecified organism; R41.0 Disorientation, unspecified; B37.0 Candidal stomatitis; J44.0 Chronic obstructive pulmonary disease with (acute) lower respiratory infection; N18.4 Chronic kidney disease, stage 4 (severe); D62 Acute posthemorrhagic anemia; E87.1 Hypo-osmolality and hyponatremia; R62.7 Adult failure to thrive; Z79.899 Other long term (current) drug therapy; J96.21 Acute and chronic respiratory failure with hypoxia; K92.1 Melena; Z87.891 Personal history of nicotine dependence; E87.5 Hyperkalemia; Z99.81 Dependence on supplemental oxygen; I50.33 Acute on chronic diastolic (congestive) heart failure; E43 Unspecified severe protein-calorie malnutrition; Z68.1 Body mass index [BMI] 19.9 or less, adult